=== PATIENT | male | born 1965 | race Caucasian/White ===

== ENCOUNTER 2024-01-07 11:54 | Inpatient (IN) | payer OTHER, SELFPAY ==
[2024-01-07] VITALS (33 sets, daily range): BP systolic 135–185; BP diastolic 71–100; PULSE 55–85; TEMP 36.4–36.7; O2SAT 87–100; BMI 37.3; BMI 38.7
--- NOTE | 2024-01-07 11:59 | ECG_ITS ---
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
--- NOTE | 2024-01-07 11:59 | XR_ITS ---
The [address] [address] Patient Name: MARIA ALEJANRDA WILCOX MRN: [id number] date: 1965 Sex: M Assigned Patient Location: ED.MAIN Current Patient Location: ER Accession/Order Number: [id number] Exam Date: 01/07/2024 12:05 Report Date: 01/07/2024 12:31 At the request of: NELLY ROSARIO Procedure: XR chest 1V EXAMINATION: XR chest 1V HISTORY: vertigo COMPARISON: No relevant comparison available. TECHNIQUE: Portable FINDINGS: LUNGS: No significant pulmonary parenchymal abnormalities. VASCULATURE: No increased pulmonary vasculature. PLEURA: No pneumothorax, effusion, or pleural thickening. CARDIAC: No cardiomegaly or cardiac silhouette abnormality. MEDIASTINUM: No visible mass or adenopathy. BONES: No fracture or visible bone lesion. OTHER: Negative. XR/XR chest 1V IMPRESSION: No acute cardiopulmonary process Electronically authenticated by: JACE SHARMA Date: 01/07/2024 12:31
--- NOTE | 2024-01-07 12:01 | CT_ITS ---
The [address] [address] Patient Name: MARIA ALEJANDRA WILCOX MRN: [id number] date: 1965 Sex: M Assigned Patient Location: ER Current Patient Location: ED.MAIN Accession/Order Number: [id number] Exam Date: 01/07/2024 12:05 Report Date: 01/07/2024 12:29 At the request of: NELLY ROSARIO Procedure: CT stroke head/brain wo con CT stroke head/brain wo con, 01/07/2024 12:05 PM EDT INDICATION: vertigo, rule out vertebrobasilar stroke COMPARISON: No prior CT scan of the head available for comparison at the time of this dictation. TECHNIQUE: Axial CT images of the brain from skull base to vertex, including portions of the face and sinuses, were obtained without contrast. Multiplanar reformatted images were generated and reviewed as needed. FINDINGS: No intracranial mass, hydrocephalus, midline shift or acute hemorrhage. No extra-axial collection. [place]-white matter differentiation is preserved. No findings within the cerebellum, midbrain or mg to suggest acute hemorrhage or infarct. The paranasal sinuses and mastoid air cells are clear. Orbits are within normal limits. No acute skull fracture. CT/CT stroke head/brain wo con IMPRESSION: No acute intracranial abnormality. If there is continued clinical concern for vertebrobasilar infarct or hemorrhage, MRI with greater sensitivity and specificity could be considered for further evaluation. Electronically authenticated by: PAYTON FIGUEROA Date: 01/07/2024 12:29
--- NOTE | 2024-01-07 12:03 | ED_ITS ---
HPI HPI - General Adult General Chief complaint: Dizziness Stated complaint: LOW BLOOD PRESSURE/VOMITING Time Seen by Provider: 01/07/24 11:59 Source: patient Mode of arrival: ambulance Limitations: no limitations History of Present Illness HPI narrative: Patient is a 58-year-old male who is presenting to the ER today with chief complaint intractable vertigo. At approximately 9:40 AM, patient was at work and had acute onset of vertigo. Patient then was having intractable nausea and vomiting. Patient was at work for a few more hours, then came in by EMS. Bay herrera has no headache or neck pain. No chest pain or shortness of breath. Patient has no abdominal pain. Patient was given a dose of Zofran by EMS prior to arrival. Patient is keeping his eyes closed, because anytime he opens up his eyes, he he will have vertigo that leads to more nausea and vomiting. Patient has no head injury, no falls. Patient has no recent vision changes. Patient's is at bedside. Patient's PCP is Dr. Jain. Patient is treated for hypertension, otherwise takes no other medications. All systems are negative except as noted/marked. All systems reviewed and other cui negative. Nurses note and vital signs reviewed and patient is not hypoxic. General: The patient appears well and in no apparent distress. Patient is resting comfortably on cart. Patient is not toxic, lethargic, or listless Skin: Warm, dry, no pallor noted. There is no rash noted. No petechiae, purpura. Head: Normocephalic, atraumatic; patient has no carotid bruits bilateral. Range of motion will ensue vertigo even though he has his eyes closed as well which will trigger nausea and some dry heaving during physical exam. Eye: Normal conjunctiva, no drainage, EOMI. PERRL, patient has some mild horizontal nystagmus, Ears, Nose, Mouth, and Throat: oral mucosa is moist. Nares patent. Mouth without vesicles. Cardiovascular: Regular Rate and Rhythm, no murmur, gallop, rub Respiratory: Patient is in no distress, no accessory muscle use, lungs are clear to auscultation, no wheezing, rales or rhonchi Back: non-tender, no CVA tenderness bilaterally to percussion. No CT LS midline pain GI: no tenderness to palpation, no masses appreciated. No rebound, guarding, or rigidity noted. No distention Musculoskeletal: Patient has full range of motion of all of the extremities, no motor, sensory, or focal neurological deficits Neurological: A&O x4, normal speech Psychiatric: Cooperative Related Data Home Medications ?Medication ?Instructions ?Recorded ?Confirmed carvedilol 12.5 mg tablet 12.5 mg PO Q12H 01/07/24 01/07/24 Allergies Allergy/AdvReac Type Severity Reaction Status Date / Time No Known Drug Allergies Allergy Verified 01/07/24 12:01 Opioid HPI Opioid Management Most Recent Opioid Data: Last Pain Assessment 01/07/24 17:00 Last ORT Total Score 0 01/07/24 15:33 Last ORT Risk Category Low Risk 01/07/24 15:33 PFSH PFSH Medical History (Updated 01/07/24 @ 15:20 by Rose Mcclellan) Hypertension ?I10 - Essential (primary) hypertension (ICD-10) Surgical History (Updated 01/07/24 @ 15:20 by Rose Mcclellan) History of appendectomy ?Z90.49 - Acquired absence of other specified parts of digestive tract (ICD- 10) H/O rotator cuff surgery ?Z98.890 - Other specified postprocedural states (ICD-10) Family History (Updated 01/07/24 @ 15:22 by Rose Mcclellan) Father Family history of cancer Family history of hypertension Aunt Family history of cancer Grandfather No problems noted. 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: Yes Highest level of school completed/degree received: Associate degree: occupational, technical, vocational program Are you now , , , , never or living with a partner: Little interest or pleasure in doing things: not at all Feeling down, depressed, or hopeless: not at all Feel stressed/tense/nervous/anxious/difficulty sleeping: not at all Do you think of yourself as: straight/heterosexual Gender Identity: male Exam Constitutional Vital Signs, click to edit/add: Last Vital Signs Temp 97.7 F 01/07/24 15:45 Pulse 79 01/07/24 17:52 Resp 16 01/07/24 15:45 BP 171/98 H 01/07/24 15:45 Pulse Ox 95 01/07/24 15:45 O2 Del Method Room Air 01/07/24 15:45 Course Vital Signs Vital signs: Vital Signs Temperature 97.5 F L 01/07/24 11:57 Pulse Rate 62 01/07/24 11:57 Respiratory Rate 18 01/07/24 11:57 Blood Pressure 185/96 H 01/07/24 11:57 Pulse Oximetry 99 01/07/24 11:57 Oxygen Delivery Method Room Air 01/07/24 11:57 Temperature 97.7 F 01/07/24 15:45 Pulse Rate 79 01/07/24 17:52 Respiratory Rate 16 01/07/24 15:45 Blood Pressure 171/98 H 01/07/24 15:45 Pulse Oximetry 95 01/07/24 15:45 Oxygen Delivery Method Room Air 01/07/24 15:45 Medical Decision Making MDM Narrative Medical decision making narrative: Stroke alert was called when patient arrived secondary to onset of vertigo, intractable vertigo, nausea and vomiting at 9:[address] AM[address] Patient had a CT of the head that was ordered, along with CTA of the head and neck. Patient also had EKG, chest x-ray, and lab work done as well. Patient was given a second dose of Zofran and Valium 2 mg when he arrived. Patient continued to have vertigo and nausea and vomiting, reassessed and 1 hour later was given a dose of Compazine and a second dose of Valium. Patient vertigo nausea vomiting improved slightly after this. Patient will be admitted for intractable vertigo, rule out vertebral basilar insufficiency or other acute etiologies. Patient felt like he was having some swelling to his throat after C ompazine was given, he was given Benadryl in case he is having a side effect of Compazine. Verifying with PIO RN, Compazine was given slow and diluted with IV fluids. Patient will be admitted by Dr. JAIN for reevaluation and ministration of additional antiemetics or other medications as needed along with additional testing tomorrow if needed Critical care time 31 minutes exclusive from separate billable procedures that were performed. The following was considered in the determination of critical care but not limited to the level of medical decision making, intensive cardiac and/or respiratory monitoring, frequent vital sign monitoring, evaluation of laboratory studies, evaluation of radiographic studies, oxygen monitoring, and constant monitoring and speaking to family at bedside Lab Data Lab results reviewed: Yes I reviewed the patient's lab results Labs: Lab Results 01/07/24 Range/Units 12:32 WBC 9.8 (4.0-11.0) 10^3/uL RBC 4.76 (4.70-6.10) 10^6/uL Hgb 14.5 (14.0-18.0) g/dL Hct 42.0 (42.0-54.0) % MCV 88.2 (80.0-94.0) fL MCH 30.5 (25.9-34.0) pg MCHC 34.5 (29.9-35.2) g/dL RDW 12.3 (11.0-15.0) % Plt Count 216 (150-450) 10^3/uL MPV 9.4 L (9.5-13.5) fL Neut % (Auto) 82.2 H (43.0-75.0) % Lymph % (Auto) 11.4 L (20.5-60.0) % Pierce % (Auto) 4.1 (1.7-12.0) % Eos % (Auto) 1.3 (0.9-7.0) % Baso % (Auto) 0.6 (0.2-2.0) % Neut # (Auto) 8.1 H (1.4-6.5) 10^3/uL Lymph # (Auto) 1.1 L (1.2-3.8) 10^3/uL Pierce # (Auto) 0.4 (0.3-0.8) 10^3/uL Eos # (Auto) 0.1 (0.0-0.7) 10^3/uL Baso # (Auto) 0.1 (0.0-0.1) 10^3/uL Abs Immat Gran (auto) 0.04 H (0.00-0.03) 10^3/uL Imm/Tot Granulo (auto) 0.4 (0.0-0.5) % PT 10.9 (9.0-11.6) sec INR 1.03 APTT 25.6 (22.3-36.2) sec Sodium 137 (136-145) mmol/L Potassium 4.5 (3.5-5.1) mmol/L Chloride 103 (98-107) mmol/L Carbon Dioxide 22.8 (21.0-32.0) mmol/L Anion Gap 15.7 BUN 23.0 H (7.0-18.0) mg/dL Creatinine 0.99 (0.70-1.30) mg/dL Est GFR ( Amer) >60 (>=60) Est GFR (Non-Af Amer) >60 (>=60) BUN/Creatinine Ratio 23.2 Glucose 143 H (74-106) mg/dL Calcium 9.0 (8.5-10.1) mg/dL Magnesium 1.9 (1.8-2.4) mg/dL Total Bilirubin 0.8 (0.2-1.0) mg/dL AST 17 (15-37) U/L ALT 20 (16-63) U/L Alkaline Phosphatase 64 (46-116) U/L Troponin I High Sens <4.0 L (4.0-76.1) pg/mL NT-Pro-B Natriuret Pep 90.0 (<=900.0) pg/mL Total Protein 7.0 (6.4-8.2) g/dL Albumin 3.5 (3.4-5.0) g/dL Globulin 3.5 g/dL Albumin/Globulin Ratio 1.0 ECG Data Attestation: I personally reviewed and interpreted this ECG as follows: (EKG interpretation. Normal sinus rhythm at 60 beats a minute. Normal axis deviation. Artifact noted. QTc of 440. ID interval 216, first degree AV block) Discharge Plan Discharge Chief Complaint: Dizziness Clinical Impression: Vertigo, Nausea and vomiting Patient Disposition: Admitted as Observation Time of Disposition Decision: 14:18 Condition: Serious Discharge Date/Time: 01/07/24 15:21
--- NOTE | 2024-01-07 12:05 | CT_ITS ---
The [address] [address] Patient Name: MARIA ALEJANDRA WILCOX MRN: [id number] date: 1965 Sex: M Assigned Patient Location: ED.MAIN Current Patient Location: ED.MAIN Accession/Order Number: [id number] Exam Date: 01/07/2024 12:05 Report Date: 01/07/2024 12:55 At the request of: NELLY ROSARIO Procedure: CT angio neck EXAM: CT angio neck, CT angio head HISTORY: vertigo COMPARISON: Noncontrast CT head performed earlier the same day and reported separately. TECHNIQUE: Postcontrast CTA imaging of the head and neck was performed with coronal and sagittal reformats. Maximum intensity projection reformats were performed on a separate workstation. NASCET criteria was utilized. This CT exam was performed using one or more of the following dose reduction techniques: Automated exposure control, adjustment of the MA and/or kV according to patient size, or use of iterative reconstruction technique. Oral images or contained under the CTA neck patient jacket. FINDINGS: Aortic arch: Imaged portion shows no evidence of aneurysm. No significant stenosis of the major origins of the major arch vessels. Right carotid system: No evidence of significant (50% or greater) stenosis or occlusion. Left carotid system: No evidence of significant (50% or greater) stenosis or occlusion. Vertebral arteries: Codominant. No evidence of significant (50% or greater) stenosis or occlusion. Anterior circulation: No evidence of aneurysm, significant stenosis, or occlusion. Vertebrobasilar system: No evidence of aneurysm, significant stenosis, or occlusion. Hypoplastic right P1 posterior cerebral artery segment. Venous sinuses: Grossly patent. Additional findings: No abnormal intracranial enhancement. Visualized portion of the lungs are clear. CT/CT angio neck IMPRESSION: No significant stenosis, large vessel occlusion or aneurysm involving the neck or intracranial arterial vasculature. Electronically authenticated by: GAUTAM ARNOLD Date: 01/07/2024 12:55
--- NOTE | 2024-01-07 12:05 | CT_ITS ---
The [address] [address] Patient Name: MARIA ALEJANDRA WILCOX MRN: [id number] date: 1965 Sex: M Assigned Patient Location: ED.MAIN Current Patient Location: ED.MAIN Accession/Order Number: [id number] Exam Date: 01/07/2024 12:05 Report Date: 01/07/2024 12:55 At the request of: NELLY ROSARIO Procedure: CT angio head EXAM: CT angio neck, CT angio head HISTORY: vertigo COMPARISON: Noncontrast CT head performed earlier the same day and reported separately. TECHNIQUE: Postcontrast CTA imaging of the head and neck was performed with coronal and sagittal reformats. Maximum intensity projection reformats were performed on a separate workstation. NASCET criteria was utilized. This CT exam was performed using one or more of the following dose reduction techniques: Automated exposure control, adjustment of the MA and/or kV according to patient size, or use of iterative reconstruction technique. Oral images or contained under the CTA neck patient jacket. FINDINGS: Aortic arch: Imaged portion shows no evidence of aneurysm. No significant stenosis of the major origins of the major arch vessels. Right carotid system: No evidence of significant (50% or greater) stenosis or occlusion. Left carotid system: No evidence of significant (50% or greater) stenosis or occlusion. Vertebral arteries: Codominant. No evidence of significant (50% or greater) stenosis or occlusion. Anterior circulation: No evidence of aneurysm, significant stenosis, or occlusion. Vertebrobasilar system: No evidence of aneurysm, significant stenosis, or occlusion. Hypoplastic right P1 posterior cerebral artery segment. Venous sinuses: Grossly patent. Additional findings: No abnormal intracranial enhancement. Visualized portion of the lungs are clear. CT/CT angio head IMPRESSION: No significant stenosis, large vessel occlusion or aneurysm involving the neck or intracranial arterial vasculature. Electronically authenticated by: GAUTAM ARNOLD Date: 01/07/2024 12:55
[2024-01-07] MEDS: ONDANSETRON PF 4 MG/2 ML VIAL IV (12:29)
[2024-01-07] MEDS: DIAZEPAM 10 MG/2 ML SYRINGE 2 MG IV ×2 (12:29→13:22)
[2024-01-07 12:39] LABS: Basophils Absolute Auto 0.1 10^3/uL (0.0-0.1); Basophils Percent Auto 0.6 % (0.2-2.0); Eosinophils Absolute Auto 0.1 10^3/uL (0.0-0.7); Eosinophils Percent Auto 1.3 % (0.9-7.0); Hemoglobin 14.5 g/dL (14.0-18.0); Immature Granulocytes Abs Auto 0.04 10^3/uL (0.00-0.03); Immature Granulocytes Pct Auto 0.4 % (0.0-0.5); Lymphocytes Absolute Auto 1.1 10^3/uL (1.2-3.8); Lymphocytes Percent Auto 11.4 % (20.5-60.0); Mean Corpuscular HGB Conc 34.5 g/dL (29.9-35.2); Mean Corpuscular Hemoglobin 30.5 pg (25.9-34.0); Mean Corpuscular Volume 88.2 fL (80.0-94.0); Mean Platelet Volume 9.4 fL (9.5-13.5); Monocytes Absolute Auto 0.4 10^3/uL (0.3-0.8); Monocytes Percent Auto 4.1 % (1.7-12.0); Neutrophils Absolute Auto 8.1 10^3/uL (1.4-6.5); Neutrophils Percent Auto 82.2 % (43.0-75.0); Platelet Count 216 10^3/uL (150-450); Red Blood Count 4.76 10^6/uL (4.70-6.10); Red Cell Distribution Width 12.3 % (11.0-15.0); White Blood Count 9.8 10^3/uL (4.0-11.0)
[2024-01-07 13:01] LABS: INR 1.03; Partial Thromboplastin Time 25.6 sec (22.3-36.2); Prothrombin Time 10.9 sec (9.0-11.6)
[2024-01-07 13:02] LABS: Alanine Aminotransferase 20 U/L (16-63); Albumin Level 3.5 g/dL (3.4-5.0); Alkaline Phosphatase 64 U/L (46-116); Anion Gap 15.7; Aspartate Amino Transferase 17 U/L (15-37); BUN Creatinine Ratio 23.2; Bilirubin Total 0.8 mg/dL (0.2-1.0); Carbon Dioxide 22.8 mmol/L (21.0-32.0); Chloride 103 mmol/L (98-107); Estimated GFR (African America >60 (>=60); Estimated GFR (Non-African Ame >60 (>=60); Globulin 3.5 g/dL; Glucose 143 mg/dL (74-106); Potassium 4.5 mmol/L (3.5-5.1); Sodium 137 mmol/L (136-145); Troponin I High Sensitivity <4.0 pg/mL (4.0-76.1)
[2024-01-07] MEDS: PROCHLORPERAZINE 10 MG/2 ML VIAL IV (13:22)
[2024-01-07] MEDS: DIPHENHYDRAMINE HCL 50 MG/ML (1ML) VIAL IV (15:26)
[2024-01-07 16:01] LABS: Magnesium 1.9 mg/dL (1.8-2.4)
--- NOTE | 2024-01-07 16:57 | P.HP_ITS ---
HPI H&P: HPI History of Present Illness Chief complaint: LOW BLOOD PRESSURE/VOMITING intractable vertigo Narrative: Patient woke up this morning felt like his normal self, as the morning progressed he started having increasing dizziness. Dizziness progressed to the point of stat emesis. Presented to the emergency room. Given multiple medications to try to improve his dizziness without success. CT scan of head and CTA head and neck were all within normal limits. Had no focal neurological deficits. When I saw patient up in the medical surgical floor he was resting comfortably. Awakens easily and per staff he has stated his dizziness is overall improving at the present time. Opioid HPI Opioid Management Most Recent Opioid Data: Last Pain Assessment 01/07/24 16:15 Last ORT Total Score 0 01/07/24 15:33 Last ORT Risk Category Low Risk 01/07/24 15:33 Review of Systems ROS Status of ROS 10 or more systems reviewed and unremark able except as noted in history and below PFSH PFSH Medical History (Updated 01/07/24 @ 15:20 by Rose Mcclellan) Hypertension ?I10 - Essential (primary) hypertension (ICD-10) Surgical History (Updated 01/07/24 @ 15:20 by Rose Mcclellan) History of appendectomy ?Z90.49 - Acquired absence of other specified parts of digestive tract (ICD- 10) H/O rotator cuff surgery ?Z98.890 - Other specified postprocedural states (ICD-10) Family History (Updated 01/07/24 @ 15:22 by Rose Mcclellan) Father Family history of cancer Family history of hypertension Aunt Family history of cancer Grandfather No problems noted. 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: Yes Highest level of school completed/degree received: Associate degree: occupational, technical, vocational program Are you now , , , , never or living with a partner: Little interest or pleasure in doing things: not at all Feeling down, depressed, or hopeless: not at all Feel stressed/tense/nervous/anxious/difficulty sleeping: not at all Do you think of yourself as: straight/heterosexual Gender Identity: male Meds Home Medications and Allergies Home Medications ?Medication ?Instructions ?Recorded ?Confirmed ?Type carvedilol 12.5 mg tablet 12.5 mg PO Q12H 01/07/24 01/07/24 History Allergies Allergy/AdvReac Type Severity Reaction Status Date / Time No Known Drug Allergies Allergy Verified 01/07/24 12:01 Exam Constitutional Vital Signs, click to edit/add: Last Vital Signs Temp 97.7 F 01/07/24 15:45 Pulse 74 01/07/24 15:54 Resp 16 01/07/24 15:45 BP 171/98 H 01/07/24 15:45 Pulse Ox 95 01/07/24 15:45 O2 Del Method Room Air 01/07/24 15:45 Common normals: no apparent distress Exam limitations: no altered mental status Chest Common normals: inspection of chest normal Respiratory Common normals: normal respiratory effort Cardio Common normals: regular rate Neuro Common normals: oriented x3, CN's II-XII intact bilaterally and moves all extremities Results Labs Labs: Short CBC 01/07/24 Range/Units 12:32 WBC 9.8 (4.0-11.0) 10^3/uL Hgb 14.5 (14.0-18.0) g/dL Hct 42.0 (42.0-54.0) % Plt Count 216 (150-450) 10^3/uL BMP 01/07/24 12:32 Sodium 137 Potassium 4.5 Chloride 103 Carbon Dioxide 22.8 BUN 23.0 H Creatinine 0.99 Glucose 143 H Calcium 9.0 Liver Function 01/07/24 Range/Units 12:32 Total Bilirubin 0.8 (0.2-1.0) mg/dL AST 17 (15-37) U/L ALT 20 (16-63) U/L Alkaline Phosphatase 64 (46-116) U/L Albumin 3.5 (3.4-5.0) g/dL Assessment and Plan Assessment and Plan (1) Nausea and vomiting: (2) Vertigo: Plan Uncontrolled hypertension, intractable vertigo. Mild dehydration with elevated BUN but creatinine is normal. IV fluids, IV Solu-Medrol, [id number] me clizine, started on aspirin, but with CTA head and neck low risk for vertebrobasilar stroke. If not improved in a.m. will consult to teleneurology. Valium 2 mg as needed. Start oral antibiotics as well. Uncontrolled hypertension-continue with home medications. Use as needed hydralazine. I suspect the uncontrolled hypertension more related to the vertigo as opposed to opposite Admission status: Patient with intractable vertigo in ER, slowly improving once up on floor. Continue as above treatment. More than 50% likelihood of discharge in a.m. Observation status.
[2024-01-07] MEDS: LACTATED RINGER'S SOLUTION 1,000 ML 100 ML IV (18:26)
--- NOTE | 2024-01-07 20:22 | PC.NURSE ---
Left eye bounces slightly with movement. Able to follow light without difficulty with both eyes.
[2024-01-07] MEDS: MECLIZINE HCL 12.5 MG TABLET 25 MG PO (21:01)
[2024-01-07] MEDS: METHYLPREDNISOLONE SOD SUCC PF 125 MG/2 ML VIAL IVP (21:02)
[2024-01-07] MEDS: CARVEDILOL 12.5 MG TABLET PO (21:02)
[2024-01-07] MEDS: CIPROFLOXACIN HCL 500 MG TABLET PO (21:02)
[2024-01-08] VITALS (89 sets, daily range): BP systolic 134–204; BP diastolic 71–98; PULSE 61–110; TEMP 36.6–36.8; O2SAT 92–95
--- NOTE | 2024-01-08 | XR_ITS ---
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 TECHNIQUE: 2 view of the orbits. FINDINGS: No metallic foreign body in the orbits XR/XR foreign body eye IMPRESSION: No orbital metallic foreign body.. Electronically authenticated by: RENE CHEUNG Date: 01/08/2024 16:20
[2024-01-08] MEDS: LACTATED RINGER'S SOLUTION 1,000 ML 100 ML IV ×2 (03:32→14:29)
[2024-01-08] MEDS: MECLIZINE HCL 12.5 MG TABLET 25 MG PO ×4 (03:32→23:01)
[2024-01-08] MEDS: METHYLPREDNISOLONE SOD SUCC PF 125 MG/2 ML VIAL IVP ×4 (03:32→23:01)
--- NOTE | 2024-01-08 03:39 | PC.NURSE ---
Patient states vertigo is getting better.
[2024-01-08 04:56] LABS: Hematocrit 44.2 % (42.0-54.0); Hemoglobin 14.7 g/dL (14.0-18.0); Immature Granulocytes Abs Auto 0.03 10^3/uL (0.00-0.03); Immature Granulocytes Pct Auto 0.4 % (0.0-0.5); Lymphocytes Absolute Auto 0.5 10^3/uL (1.2-3.8); Lymphocytes Percent Auto 6.2 % (20.5-60.0); Mean Corpuscular HGB Conc 33.3 g/dL (29.9-35.2); Mean Corpuscular Hemoglobin 30.1 pg (25.9-34.0); Mean Corpuscular Volume 90.6 fL (80.0-94.0); Mean Platelet Volume 9.4 fL (9.5-13.5); Monocytes Percent Auto 0.3 % (1.7-12.0); Neutrophils Absolute Auto 7.2 10^3/uL (1.4-6.5); Neutrophils Percent Auto 93.1 % (43.0-75.0); Platelet Count 224 10^3/uL (150-450); Red Blood Count 4.88 10^6/uL (4.70-6.10); Red Cell Distribution Width 12.8 % (11.0-15.0); White Blood Count 7.8 10^3/uL (4.0-11.0)
[2024-01-08 05:11] LABS: Anion Gap 15.9; BUN Creatinine Ratio 17.6; Calcium 9.1 mg/dL (8.5-10.1); Carbon Dioxide 21.3 mmol/L (21.0-32.0); Chloride 106 mmol/L (98-107); Estimated GFR (African America >60 (>=60); Estimated GFR (Non-African Ame >60 (>=60); Glucose 140 mg/dL (74-106); Potassium 4.2 mmol/L (3.5-5.1); Sodium 139 mmol/L (136-145)
[2024-01-08] MEDS: CIPROFLOXACIN HCL 500 MG TABLET PO ×2 (08:56→23:00)
[2024-01-08] MEDS: ASPIRIN 81 MG TABLET.DR PO (08:56)
[2024-01-08] MEDS: CARVEDILOL 12.5 MG TABLET PO (08:56)
--- NOTE | 2024-01-08 10:03 | P.DS_ITS ---
DS: Providers Provider Date of admission: 01/07/24 15:05 Primary care physician: Francisco Barlow MD Consults: 01/07/24 15:45 Consult to Pharmacy Routine Consulting Provider: Reason for consultation: Please [place] me when Med Rec is Updated Has provider been notified: No Occupational Therapy Eval and Treat Routine Reason for consultation: Only if needed for Rehab Has provider been notified: No Physical Therapy Eval and Treat Routine Reason for consultation: Eval and Treat Has provider been notified: No 01/08/24 09:27 Consult to TeleNeurology Routine Reason for consultation: for persistent vertigo Has provider been notified: No Physical Therapy Eval and Treat Routine Reason for consultation: for vertigo Has provider been notified: No DS: Diagnosis Discharge Diagnosis (1) Nausea and vomiting: (2) Vertigo: Plan Uncontrolled hypertension, intractable vertigo. Mild dehydration with elevated BUN but creatinine is normal. IV fluids, IV Solu-Medrol, [id number] meclizine, started on aspirin, but with CTA head and neck low risk for vertebrobasilar stroke. If not improved in a.m. will consult to teleneurology. Valium 2 mg as needed. Start oral antibiotics as well. Uncontrolled hypertension-continue with home medications. Use as needed hydralazine. I suspect the uncontrolled hypertension more related to the vertigo as opposed to opposite Admission status: Patient with intractable vertigo in ER, slowly improving once up on floor. Continue as above treatment. More than 50% likelihood of discharge in a.m. Observation status. DS: Summary Time Spent with Patient Time attestation: Total time spent providing and/or coordinating discharge services: Exam Constitutional Vital Signs, click to edit/add: Last Vital Signs Temp 97.8 F 01/08/24 08:00 Pulse 822 H 01/08/24 08:00 Resp 18 01/08/24 08:00 BP 175/87 H 01/08/24 08:00 Pulse Ox 93 L 01/08/24 08:00 O2 Del Method Room Air 01/08/24 08:00 DS: Data Data Completed and Pending Labs on day of discharge: Labs from last 24 hours 01/08/24 01/07/24 04:40 12:32 WBC 7.8 9.8 RBC 4.88 4.76 Hgb 14.7 14.5 Hct 44.2 42.0 MCV 90.6 88.2 MCH 30.1 30.5 MCHC 33.3 34.5 RDW 12.8 12.3 Plt Count 224 216 MPV 9.4 L 9.4 L Neut % (Auto) 93.1 H 82.2 H Lymph % (Auto) 6.[address] [place] % (Auto) 0.3 L 4.1 Eos % (Auto) 0.0 L 1.3 Baso % (Auto) 0.0 L 0.6 Neut # (Auto) 7.2 H 8.1 H Lymph # (Auto) 0.[address] [place] # (Auto) 0.0 L 0.4 Eos # (Auto) 0.0 0.1 Baso # (Auto) 0.0 0.1 Abs Immat Gran (auto) 0.03 0.04 H Imm/Tot Granulo (auto) 0.4 0.4 PT 10.9 INR 1.03 APTT 25.6 Sodium 139 137 Potassium 4.2 4.5 Chloride 106 103 Carbon Dioxide 21.3 22.8 Anion Gap 15.9 15.7 BUN 15.0 23.0 H Creatinine 0.85 0.99 Est GFR ( Amer) >60 >60 Est GFR (Non-Af Amer) >60 >60 BUN/Creatinine Ratio 17.6 23.2 Glucose 140 H 143 H Calcium 9.1 9.0 Magnesium 1.9 Total Bilirubin 0.8 AST 17 ALT 20 Alkaline Phosphatase 64 Troponin I High Sens <4.0 L NT-Pro-B Natriuret Pep 90.0 Total Protein 7.0 Albumin 3.5 Globulin 3.5 Albumin/Globulin Ratio 1.0 Discharge Plan Discharge Condition: Serious Discharge Medications: No Action carvedilol 12.5 mg tablet 12.5 mg PO Q12H Print Language: Haitian
--- NOTE | 2024-01-08 11:56 | P.PN_ITS ---
Progress Note: Subjective Subjective Interval history: Patient with persistent vertigo this morning. Show consulted to teleneurology. See evaluation by teleneurology. Exam Constitutional Vital Signs, click to edit/add: Last Vital Signs Temp 97.8 F 01/08/24 08:00 Pulse 71 01/08/24 10:05 Resp 18 01/08/24 08:00 BP 150/88 H 01/08/24 10:00 Pulse Ox 93 L 01/08/24 08:00 O2 Del Method Room Air 01/08/24 08:00 Common normals: no apparent distress Exam limitations: no altered mental status Chest Common normals: inspection of chest normal Respiratory Common normals: normal respiratory effort Cardio Common normals: regular rate Neuro Common normals: oriented x3, CN's II-XII intact bilaterally and moves all extremities Other: See teleneurology evaluation Progress Note: Objective Labs Labs: Short CBC 01/07/24 01/08/24 Range/Units 12:32 04:40 WBC 9.8 7.8 (4.0-11.0) 10^3/uL Hgb 14.5 14.7 (14.0-18.0) g/dL Hct 42.0 44.2 (42.0-54.0) % Plt Count 216 224 (150-450) 10^3/uL BMP 01/07/24 01/08/24 12:32 04:40 Sodium 137 139 Potassium 4.5 4.2 Chloride 103 106 Carbon Dioxide 22.8 21.3 BUN 23.0 H 15.0 Creatinine 0.99 0.85 Glucose 143 H 140 H Calcium 9.0 9.1 Liver Function 01/07/24 Range/Units 12:32 Total Bilirubin 0.8 (0.2-1.0) mg/dL AST 17 (15-37) U/L ALT 20 (16-63) U/L Alkaline Phosphatase 64 (46-116) U/L Albumin 3.5 (3.4-5.0) g/dL Progress Note: A&P Assessment and Plan (1) Nausea and vomiting: (2) Vertigo: Plan Uncontrolled hypertension, intractable vertigo. Mild dehydration with elevated BUN but creatinine is normal. Continue with current treatment plan. His vertigo he states is better than yesterday. But still persisting. Will have physical therapy work with patient, added teleneurology visit. Teleneurology would suspect is likely to recommend an additional day to make sure he is stable before discharge Uncontrolled hypertension-continue with home medications. Increase carvedilol this morning Hyperglycemia-continue to monitor Admission status: Initially placed in observation status. Intractable vertigo not resolved. Teleneurology recommending additional hospital stay for continued IV therapy. Medically necessary treatment spanning 2 midnights, will change patient to inpatient status
--- NOTE | 2024-01-08 12:47 | MR_ITS ---
The [address] [address] Patient Name: MARIA ALEJANDRA WILCOX MRN: [id number] date: 1965 Sex: M Assigned Patient Location: [place] Current Patient Location: [place] Accession/Order Number: [id number] Exam Date: 01/08/2024 14:15 Report Date: 01/08/2024 17:34 At the request of: NADEEN JAIN Procedure: MR head/brain wo con MR head/brain wo con HISTORY: Vertigo COMPARISON: None. TECHNIQUE: Multi-planar, multi-sequence brain MRI was performed without IV contrast. FINDINGS: Brain volume: Normal. Sagittal midline structures: Normal. Ventricles: Normal. Acute ischemic changes: None. Hemorrhage: None. Masses/edema: None. [place]-white: Negative. White matter: A few nonspecific subcortical and periventricular T2/FLAIR white matter hyperintensities. Vessels: Normal. Extra-axial: None. Calvarium/scalp: Negative. Skull base: Negative. Visualized sinuses/orbits: Negative. Visualized upper neck: Negative. MR/MR head/brain wo con IMPRESSION: 1. Mild chronic microangiopathy; otherwise unremarkable. Electronically authenticated by: CRIS SALGUERO Date: 01/08/2024 17:34
[2024-01-08] MEDS: HYDRALAZINE HCL 20 MG/ML VIAL 10 MG IVP (13:23)
[2024-01-08] MEDS: DIAZEPAM 2 MG TABLET PO (13:55)
[2024-01-08] MEDS: METOPROLOL TARTRATE 5 MG/5 ML VIAL IVP (14:43)
[2024-01-08] MEDS: ENALAPRILAT DIHYDRATE 1.25 MG/ML VIAL IV (15:47)
[2024-01-08] MEDS: DIAZEPAM 10 MG/2 ML SYRINGE 5 MG IV (17:02)
[2024-01-08] MEDS: HYDRALAZINE HCL 20 MG/ML VIAL IVP (17:03)
[2024-01-08] MEDS: ACETAMINOPHEN 500 MG TABLET 1000 MG PO (19:48)
[2024-01-08] MEDS: NITROPRUSSIDE SODIUM 50 MG in DEXTROSE 5 % IN WATER 250 ML 11.1039999999999992 MG IV (20:13)
[2024-01-08] MEDS: PANTOPRAZOLE SODIUM 40 MG VIAL IV (20:15)
[2024-01-09] VITALS (96 sets, daily range): BP systolic 106–190; BP diastolic 51–108; PULSE 58–104; TEMP 36.6–36.7; O2SAT 90–96
[2024-01-09] MEDS: LACTATED RINGER'S SOLUTION 1,000 ML 100 ML IV (01:02)
[2024-01-09] MEDS: MECLIZINE HCL 12.5 MG TABLET 25 MG PO ×2 (04:06→08:54)
[2024-01-09] MEDS: METHYLPREDNISOLONE SOD SUCC PF 125 MG/2 ML VIAL IVP (04:06)
[2024-01-09 05:32] LABS: Anion Gap 13.7; BUN Creatinine Ratio 18.1; Calcium 9.1 mg/dL (8.5-10.1); Carbon Dioxide 23.6 mmol/L (21.0-32.0); Chloride 108 mmol/L (98-107); Estimated GFR (African America >60 (>=60); Estimated GFR (Non-African Ame >60 (>=60); Glucose 128 mg/dL (74-106); Potassium 4.3 mmol/L (3.5-5.1); Sodium 141 mmol/L (136-145)
[2024-01-09 05:34] LABS: Basophils Percent Auto 0.2 % (0.2-2.0); Hematocrit 42.4 % (42.0-54.0); Hemoglobin 13.9 g/dL (14.0-18.0); Immature Granulocytes Abs Auto 0.21 10^3/uL (0.00-0.03); Immature Granulocytes Pct Auto 1.1 % (0.0-0.5); Lymphocytes Absolute Auto 0.6 10^3/uL (1.2-3.8); Lymphocytes Percent Auto 3.1 % (20.5-60.0); Mean Corpuscular HGB Conc 32.8 g/dL (29.9-35.2); Mean Corpuscular Hemoglobin 30.1 pg (25.9-34.0); Mean Corpuscular Volume 91.8 fL (80.0-94.0); Monocytes Absolute Auto 0.7 10^3/uL (0.3-0.8); Monocytes Percent Auto 3.4 % (1.7-12.0); Neutrophils Percent Auto 92.2 % (43.0-75.0); Platelet Count 220 10^3/uL (150-450); Red Blood Count 4.62 10^6/uL (4.70-6.10); Red Cell Distribution Width 13.2 % (11.0-15.0); White Blood Count 19.5 10^3/uL (4.0-11.0)
[2024-01-09] MEDS: METHYLPREDNISOLONE SOD SUCC PF 125 MG/2 ML VIAL 60 MG IVP (08:51)
[2024-01-09] MEDS: ASPIRIN 81 MG TABLET.DR PO (08:54)
[2024-01-09] MEDS: CARVEDILOL 12.5 MG TABLET 25 MG PO (08:54)
[2024-01-09] MEDS: CIPROFLOXACIN HCL 500 MG TABLET PO (09:05)
--- NOTE | 2024-01-09 09:51 | P.DS_ITS ---
DS: Providers Provider Date of admission: 01/07/24 15:05 Primary care physician: Francisco Barlow MD Consults: 01/07/24 15:45 Consult to Pharmacy Routine Consulting Provider: Reason for consultation: Please [place] me when Med Rec is Updated Has provider been notified: No Occupational Therapy Eval and Treat Routine Reason for consultation: Only if needed for Rehab Has provider been notified: No Physical Therapy Eval and Treat Routine Reason for consultation: Eval and Treat Has provider been notified: No 01/08/24 09:27 Consult to TeleNeurology Routine Reason for consultation: for persistent vertigo Has provider been notified: No Physical Therapy Eval and Treat Routine Reason for consultation: for vertigo Has provider been notified: No DS: Diagnosis Discharge Diagnosis (1) Nausea and vomiting: (2) Vertigo: Plan Admission findings: Uncontrolled hypertension, intractable vertigo. Mild dehydration with elevated BUN but creatinine is normal. Improving at the time of discharge Uncontrolled hypertension with hypertensive urgency-better when taking medications Hyperglycemia-continue to monitor Sleep apnea-stable with machine Lssiogafcsms-bprfiqv-pchatke Iron deficiency anemia-stable Admission status: Initially placed in observation status. Intractable vertigo not resolved. Patient developed hypertensive urgency and required transfer to the intensive care unit and change patient to inpatient status with medically necessary treatment spanning 2 midnights ? DS: Summary Hospital Course Hospital Course: Patient was admitted with intractable vertigo. Given multiple medications in the emergency room without success. Also had significant elevation of blood pressure on admission to the emergency room. He was treated with steroids, Depakote, meclizine, antibiotics, Valium. Had improvement in his vertigo but the blood pressure remains significantly elevated started having increasing high blood pressure with headache and some chest discomfort. Patient was transferred to the intensive care unit and placed on nitroprusside drip. His blood pressure improved. His rest of his symptoms improved as well to except the vertigo. His vertigo is improved from admission but still slightly persistent. With blood pressure overall improving, blood pressure somewhat elevated this morning but I think is more related to his stress and anxiety. Will give a dose of hydralazine prior to discharge. If stable after that he can be discharged home in improving condition. Medications see list. Follow-up with me in the office tomorrow. Time Spent with Patient Time attestation: Total time spent providing and/or coordinating discharge services: Time spent: greater than 30 minutes Exam Constitutional Vital Signs, click to edit/add: Last Vital Signs Temp 98.0 F 01/09/24 08:00 Pulse 76 01/09/24 08:00 Resp 16 01/09/24 08:00 BP 126/51 01/09/24 07:30 Pulse Ox 95 01/09/24 08:00 O2 Del Method Room Air 01/09/24 08:00 Common normals: no apparent distress Exam limitations: no altered mental status Chest Common normals: inspection of chest normal Respiratory Common normals: normal respiratory effort Cardio Common normals: regular rate, regular rhythm and no murmurs Neuro Common normals: oriented x3, CN's II-XII intact bilaterally and moves all extremities Other: See teleneurology evaluation DS: Data Data Completed and Pending Labs on day of discharge: Labs from last 24 hours 01/09/24 04:02 WBC 19.5 H RBC 4.62 L Hgb 13.9 L Hct 42.4 MCV 91.8 MCH 30.1 MCHC 32.8 RDW 13.2 Plt Count 220 MPV 10.0 Neut % (Auto) 92.2 H Lymph % (Auto) 3.1 L [place] % (Auto) 3.4 Eos % (Auto) 0.0 L Baso % (Auto) 0.2 Neut # (Auto) 18.0 H Lymph # (Auto) 0.6 L [place] # (Auto) 0.7 Eos # (Auto) 0.0 Baso # (Auto) 0.0 Abs Immat Gran (auto) 0.21 H Imm/Tot Granulo (auto) 1.1 H Sodium 141 Potassium 4.3 Chloride 108 H Carbon Dioxide 23.6 Anion Gap 13.7 BUN 17.0 Creatinine 0.94 Est GFR ( Amer) >60 Est GFR (Non-Af Amer) >60 BUN/Creatinine Ratio 18.1 Glucose 128 H Calcium 9.1 Discharge Plan Discharge Disposition: Home, Self-Care Condition: Serious Discharge Medications: New carvedilol 25 mg Tablet 25 mg PO BID Qty: 60 11RF ciprofloxacin HCl 500 mg Tablet 500 mg PO BID Qty: 20 0RF aspirin 81 mg Tablet,Delayed Release (Dr/Ec) 81 mg PO QD Qty: 30 11RF meclizine 12.5 mg Tablet 25 mg PO Q6H Qty: 20 0RF prednisone 10 mg tablet 50 mg PO DAILY Qty: 47 0RF Rx Instructions: 5/day for 3 days. 4/day for 3 days, 3/day for 3 days, 2/day for 3 days, 1/day for 3 days, 1/2 /day for 4 days Discontinued carvedilol 12.5 mg tablet 12.5 mg PO Q12H Print Language: Georgian Forms: Portal Instructions
[2024-01-09] MEDS: HYDRALAZINE HCL 20 MG/ML VIAL IVP (10:54)
[2024-01-09] MEDS: DIAZEPAM 2 MG TABLET PO (11:43)
--- NOTE | 2024-01-10 10:48 | CM.DCFOLLOWU ---
Person spoke with: patient How are you feeling? well How is your pain? no pain Did you understand your discharge instructions? yes Do you have any questions about your discharge instructions? no Were you given any prescriptions at discharge? yes Were you able to get your prescriptions filled? picking up today Do you understand how to take your medications as ordered? yes Do you have any questions about your follow up appointment and do you plan to keep your follow up appointment? f/u today with Dr. Barlow. Patient askd about physical therapy, advised to speak with Dr. Barlow about this Is there anything else that you would like to discuss? no Questions/Comments/Concerns/Other: N/A
== END 2024-01-09 12:57 | disposition home or self-care (01) | DRG 305 ==
LOC: ER 14:18 → MS 15:09 → ICU 01-11 08:04 → MS 01-11 08:04
PROVIDERS: Admitting Provider Family Medicine; Emergency Provider Emergency Medicine; PCP Family Medicine; Visit Provider Family Medicine
DX: I16.0 Hypertensive urgency (principal); R42 Dizziness and giddiness; R11.2 Nausea with vomiting, unspecified; E86.0 Dehydration; R07.9 Chest pain, unspecified; R73.9 Hyperglycemia, unspecified; G47.30 Sleep apnea, unspecified; D72.829 Elevated white blood cell count, unspecified; D50.9 Iron deficiency anemia, unspecified; Z79.899 Other long term (current) drug therapy; Z90.49 Acquired absence of other specified parts of digestive tract; Z98.890 Other specified postprocedural states
CPT/HCPCS: 36415; 70030; 70450; 70496; 70498; 70551; 71045; 80048; 80053; 83735; 83880; 84484; 85025; 85610; 85730; 93005; 94667; 94668; 96361; 96365; 96375; 96376; 97161; 99285; G0378; J2919; Q3014; Q9967

== ENCOUNTER 2024-03-07 09:28 | Observation (INO) | payer OTHER, SELFPAY ==
[2024-03-07] VITALS (33 sets, daily range): BP systolic 118–174; BP diastolic 76–118; PULSE 57–94; TEMP 36.6–36.7; O2SAT 93–99; BMI 37.3
--- NOTE | 2024-03-07 09:35 | ECG_ITS ---
The [facility] Test Date: 2024-03-07 Pat Name: MARIA ALEJANDRA WILCOX Department: Room: - Gender: Male Assisted Living Coordinator: : 1965 Requested By: [id number] Order Number: [id number] Reading MD: AURELIO RODRIGUEZ Measurements Intervals [place] Rate: 58 P: 68 IN: 190 QRS: 46 QRSD: 86 T: 50 QT: 438 QTc: 434 Interpretive Statements 1100 Sinus rhythm 9110 normal ECG Compared to ECG 01/07/2024 11:59:17 First degree AV block no longer present Electronically Signed On 03-07-2024 22:44:54 EDT by AURELIO RODRIGUEZ
[2024-03-07] MEDS: 0.9 % SODIUM CHLORIDE 500 ML IV (09:38)
--- OUTSIDE RECORDS SUMMARY | 2024-03-07 09:44 | XMS_ITS | CCD ---
Author Organization [facility] Care Team Providers Care Federal Law Clerk Name Role Phone DR NADEEN BARLOW Admitting Unavailable YEN, DR SENOIR Attending Unavailable JOHNNYY, DR SENIOR Primary Care Unavailable YEN, DR SENIOR Consulting Unavailable WEST, DR JACE Wasserman Consulting Unavailable YEN, DR SENIOR Admitting Unavailable JOHNNYY, DR SENIOR Attending Unavailable HOY, DR SENIOR Primary Care Unavailable JOHNNYY, DR SENIOR Consulting Unavailable SILABRAHAM Oates A Referring Unavailable ABRAHAM MUJICA Attending Unavailable ROBBIE NIETO Consulting Unavailabl e INPATIENT, TELENEUROLOGY Consulting Unavail able NADEEN BARLOW Referring Unavailable NADEEN BARLOW M Referring Unavailable NADEEN BARLOW M Primary Care Unavailable BANDAR MCMANUS Attending Unavailable BANDAR MCMANUS Attending Unavailable Problems Active Problems Problem Classification Problem Date Documented Da te Episodic/Chronic Conditions associated with dizziness or vertigo (1 source) Dizziness and giddiness; Translations: [Dizziness and giddiness] Onset: 01-10-2024 Episodic Conditions associated with dizziness or vertigo (1 source) Conditions associated with dizziness or vertigo Onset: 01-08-2024 Osteoarthritis (2 sources) Unilateral primary osteoarthritis, left knee; Translations: [Unilateral primary osteoarthritis, left knee] Onset: 07-16-2022 Chronic Other non-traumatic joint disorders (4 sources) Pain in left knee; Translations: [PAIN IN LEFT KNEE] Onset: 07-07-2022 Episodic Other screening for suspected conditions (not mental disorders or infectious disease) (1 source) Encounter for screening for malignant neoplasm of prostate; Translations: [ENC SCREEN MALIG NEOPLASM PROSTATE] Onset: 08-10-2022 Episodic Residual codes; unclassified (1 source) Pain, unspecified; Translations: [Pain, unspecified] Onset: 01-08-2024 Episodic Past or Other Problems Problem Classification Problem Date Documented Da te Episodic/Chronic Other non-traumatic joint disorders (2 sources) Pain in right knee; Translations: [Pain in right knee] Onset: 07-16-2022 Episodic Results Test Name Value Interpretation Reference Range Facility [facility] 05-10-2023 Refill [id number] Hans Montenegro 1965 M Date Provider Department Center 05/10/2023 ABRAHAM LARA MP ORTHO MPORTHO Family History Family history unknown: Yes Reason for Visit and Comments: Med Refill [[id number]] Normal [facility] INSULINon 08-07-2022 Insulin 9.1 uIU/mL Normal 2.6-24.9 [facility] Comment on above: Performed By: #### I NSULIN #### [facility] [address] [place] [address] Dr. Arsh Nielsen CBC AUTO DIFFon 08-05-2022 BASO # 0.1 103/ul Normal 0.0-0.1 [facility] Comment on above: Performed By: #### C BC #### [facility] [address] [place] [address] Dr. Arsh Nielsen Basophils/100 WBC (Bld) 1.7 % Normal 0.2-2.0 [facility] Comment on above: Performed By: #### C BC #### [facility] [address] [place] [address] Dr. Arsh Nielsen EO # 0.2 103/ul Normal 0.0-0.7 [facility] Comment on above: Performed By: #### C BC #### [facility] [address] [place] [address] Dr. Arsh Nielsen Eosinophils/100 WBC (Bld) 3.5 % Normal 0.9-7.0 [facility] Comment on above: Performed By: #### C BC #### [facility] [address] [place] [address] Dr. Arsh Nielsen Erythrocyte distribution width (RBC) [Ratio] 12.9 % Normal 11.0-15.0 [facility] Comment on above: Performed By: #### C BC #### [facility] [address] [place] [address] Dr. Arsh Nielsen Hematocrit (Bld) [Volume fraction] 43.5 % Normal 42.0-54.0 [facility] Comment on above: Performed By: #### C BC #### [facility] [address] [place] [address] Dr. Arsh Nielsen Hemoglobin (Bld) [Mass/Vol] 14.8 g/dL Normal 14.0-18.0 [facility] Comment on above: Performed By: #### C BC #### [facility] [address] [place] [address] Dr. Arsh Nielsen IG # 0.01 10e3/ul Normal 0.00-0.03 [facility] Comment on above: Performed By: #### C BC #### [facility] [address] [place] [address] Dr. Arsh Nielsen IG % 0.2 % Normal 0.0-0.5 [facility] Comment on above: Performed By: #### C BC #### [facility] [address] [place] [address] Dr. Arsh Nielsen LYMPH # 1.4 103/ul Normal 1.2-3.8 [facility] Comment on above: Performed By: #### C BC #### [facility] [address] [place] [address] Dr. Arsh Nielsen Lymphocytes/100 WBC (Bld) 31.2 % Normal 20.5-60.0 [facility] Comment on above: Performed By: #### C BC #### [facility] [address] [place] [address] Dr. Arsh Nielsen MANUAL DIFF REQ NO Normal [facility] Comment on above: Performed By: #### C BC #### [facility] [address] [place] [address] Dr. Arsh Nielsen MCH (RBC) [Entitic mass] 30.9 pg Normal 25.9-34.0 [facility] Comment on above: Performed By: #### C BC #### [facility] [address] [place] [address] Dr. Arsh Nielsen MCHC (RBC) [Mass/Vol] 34.0 g/dL Normal 29.9-35.2 [facility] Comment on above: Performed By: #### C BC #### [facility] [address] [address] [address] Arsh Nielsen MCV (RBC) [Entitic vol] 90.8 fL Normal 80.0-94.0 [facility] Comment on above: Performed By: #### C BC #### [facility] [address] [address] [address] Arsh Nielsen MONO # 0.4 103/ul Normal 0.3-0.8 [facility] Comment on above: Performed By: #### C BC #### [facility] [address] [place] [address] Dr. Arsh Nielsen Monocytes/100 WBC (Bld) 8.0 % Normal 1.7-12.0 [facility] Comment on above: Performed By: #### C BC #### [facility] [address] [place] [address] Dr. Arsh Nielsen NEUT # 2.6 103/ul Normal 1.4-6.5 [facility] Comment on above: Performed By: #### C BC #### [facility] [address] [place] [address] Dr. Arsh Nielsen Neutrophils/100 WBC (Bld) 55.4 % Normal 43.0-75.0 [facility] Comment on above: Performed By: #### C BC #### [facility] [address] [address] [address] Arsh Nielsen Platelet mean volume (Bld) [Entitic vol] 9.3 fL Critically low 9.5-13.5 [facility] Comment on above: Performed By: #### C BC #### [facility] [address] [place] [address] Dr. Arsh Nielsen PLT 248 103/ul Normal 150-450 [facility] Comment on above: Performed By: #### C BC #### [facility] [address] [place] [address] Dr. Arsh Nielsen RBC 4.79 106/ul Normal 4.70-6.10 [facility] Comment on above: Performed By: #### C BC #### [facility] [address] [place] [address] Dr. Arsh Nielsen WBC 4.6 103/ul Normal 4.0-11.0 [facility] Comment on above: Performed By: #### C BC #### [facility] [address] [place] [address] Dr. Arsh Nielsen GLYCOHEMOGLOBIN A1Con 2021 ADA RECOMMENDATION SEE BELOW Normal [facility] Comment on above: Result Comment: ADA RECOMMENDED LIMIT 4.0 - 6.0 ADA THERAPEUTIC TARGET < 7.0 ACTION SUGGESTED > 7.0 Performed By: #### A 1C #### [facility] [address] [place] [address] Dr. Arsh Nielsen Glucose [Mass/Vol] 108 mg/dL Normal [facility] Comment on above: Performed By: #### A 1C #### [facility] [address] [place] [address] Dr. Arsh Nielsen HbA1c (Bld) [Mass fraction] 5.4 % Normal 4.5-6.2 [facility] Comment on above: Performed By: #### A 1C #### [facility] [address] [place] [address] Dr. Arsh Nielsen LIPID PROFILEon 08-05-2022 CHOL-HDL RATIO NORM SEE BELOW Normal [facility] Comment on above: Result Comment: 3.3 - 4.4 LOW RISK 4.4 - 7.1 AVERAGE RISK 7.1 - 11.0 MODERATE RISK >11.0 HIGH RISK Performed By: #### C MP, LIPID #### [facility] [address] [place] [address] Dr. Arsh Nielsen Cholesterol [Mass/Vol] 157 mg/dL Normal <=200 [facility] Comment on above: Performed By: #### C MP, LIPID #### [facility] [address] [place] [address] Dr. Arsh Nielsen Cholesterol in HDL [Mass/Vol] 35 mg/dL Critically low 40-60 [facility] Comment on above: Performed By: #### C MP, LIPID #### [facility] [address] [address] [address] Arsh Nielsen Cholesterol in LDL [Mass/Vol] 98.8 mg/dL Normal [facility] Comment on above: Performed By: #### C MP, LIPID #### [facility] [address] [address] [address] Arsh Nielsen Cholesterol.total/Cho lesterol in HDL [Mass ratio] 4.5 {ratio} Normal [facility] Comment on above: Performed By: #### C MP, LIPID #### [facility] [address] [place] [address] Dr. Arsh Nielsen HDL NORMAL > or = 60 mg/dl - LOW CARDIOVASCULAR RISK <40 mg/dl - HIGH CARDIOVASCULAR RISK Normal [facility] Comment on above: Performed By: #### C MP, LIPID #### [facility] [address] [place] [address] Dr. Arsh Nielsen LDL CALC NORMAL SEE BELOW Normal [facility] Comment on above: Result Comment: <100 mg/dl OPTIMAL 100 - 129 mg/dl NEAR OR ABOVE OPTIMAL 130 - 159 mg/dl BORDERLINE HIGH 160 - 189 mg/dl HIGH >190 mg/dl VERY HIGH Performed By: #### C MP, LIPID #### [facility] [address] [place] [address] Dr. Arsh Nielsen Triglyceride [Mass/Vol] 116 mg/dL Normal <=150 [facility] Comment on above: Performed By: #### C MP, LIPID #### [facility] [address] [place] [address] Dr. Arsh Nielsen VLDL CALC 23.2 mg/dL Normal [facility] Comment on above: Performed By: #### C MP, LIPID #### [facility] [address] [place] [address] Dr. Arsh Nielsen PROF 14(COMP METB)on 022 Albumin [Mass/Vol] 3.7 g/dL Normal 3.4-5.0 [facility] Comment on above: Performed By: #### C MP, LIPID #### [facility] [address] [place] [address] Dr. Arsh Nielsen Albumin/Globulin [Mass ratio] 1.1 {ratio} Normal [facility] Comment on above: Performed By: #### C MP, LIPID #### [facility] [address] [place] [address] Dr. Arsh Nielsen ALP [Catalytic activity/Vol] 58 U/L Normal 46-116 [facility] Comment on above: Performed By: #### C MP, LIPID #### [facility] [address] [place] [address] Dr. Arsh Nielsen ALT [Catalytic activity/Vol] 18 U/L Normal 16-63 [facility] Comment on above: Performed By: #### C MP, LIPID #### [facility] [address] [place] [address] Dr. Arsh Nielsen Anion gap [Moles/Vol] 9.5 mmol/L Normal [facility] Comment on above: Performed By: #### C MP, LIPID #### [facility] [address] [place] [address] Dr. Arsh Nielsen AST [Catalytic activity/Vol] 16 U/L Normal 15-37 [facility] Comment on above: Performed By: #### C MP, LIPID #### [facility] [address] [place] [address] Dr. Arsh Nielsen Bilirubin [Mass/Vol] 0.6 mg/dL Normal 0.2-1.0 [facility] Comment on above: Performed By: #### C MP, LIPID #### [facility] [address] [place] [address] Dr. Arsh Nielsen Calcium [Mass/Vol] 9.1 mg/dL Normal 8.5-10.1 [facility] Comment on above: Performed By: #### C MP, LIPID #### [facility] [address] [place] [address] Dr. Arsh Nielsen Chloride [Moles/Vol] 107 mmol/L Normal 98-107 [facility] Comment on above: Performed By: #### C MP, LIPID #### [facility] [address] [place] [address] Dr. Arsh Nielsen CO2 [Moles/Vol] 31.2 mmol/L Normal 21.0-32.0 [facility] Comment on above: Performed By: #### C MP, LIPID #### [facility] [address] [place] [address] Dr. Arsh Nielsen Creatinine [Mass/Vol] 0.96 mg/dL Normal 0.70-1.30 [facility] Comment on above: Performed By: #### C MP, LIPID #### [facility] [address] [place] [address] Dr. Arsh Nielsen EGFR-AF GERMAN >60 Normal >=60 [facility] Comment on above: Performed By: #### C MP, LIPID #### [facility] [address] [place] [address] Dr. Arsh Nielsen EGFR-NON AF GERMAN >60 Normal >=60 [facility] Comment on above: Performed By: #### C MP, LIPID #### [facility] [address] [place] [address] Dr. Arsh Nielsen Globulin (S) [Mass/Vol] 3.3 g/dL Normal [facility] Comment on above: Performed By: #### C MP, LIPID #### [facility] [address] [place] [address] Dr. Arsh Nielsen Glucose [Mass/Vol] 100 mg/dL Normal 74-106 [facility] Comment on above: Performed By: #### C MP, LIPID #### [facility] [address] [place] [address] Dr. Arsh Nielsen Potassium [Moles/Vol] 4.7 mmol/L Normal 3.5-5.1 [facility] Comment on above: Performed By: #### C MP, LIPID #### [facility] [address] [place] [address] Dr. Arsh Nielsen Protein [Mass/Vol] 7.0 g/dL Normal 6.4-8.2 [facility] Comment on above: Performed By: #### C MP, LIPID #### [facility] [address] [place] [address] Dr. Arsh Nielsen Sodium [Moles/Vol] 143 mmol/L Normal 136-145 [facility] Comment on above: Performed By: #### C MP, LIPID #### [facility] [address] [address] [address] Arsh Nielsen Urea nitrogen [Mass/Vol] 14.0 mg/dL Normal 7.0-18.0 [facility] Comment on above: Performed By: #### C EKATERINA, LIPID #### [facility] [address] [place], [place] [address] Dr. Arsh Nielsen Urea nitrogen/Creatinine [Mass ratio] 14.6 mg/mg Normal [facility] Comment on above: Performed By: #### C MP, LIPID #### [facility] [address] [place], [place] [address] Dr. Arsh Nielsen Office Visiton 07-16-2022 Follow-up visit [id number] Hans Montenegro 1965 M Date Provider Department Center 07/16/2022 ABRAHAM LARA MP ORTHO MPORTHO Family History Family history unknown: Yes Level of Service:[address]67 [place] OFFICE/OUTPATIENT NEW LOW [facility] 30-44 MINUTES Reason for Visit and Comments: Pain [136] Normal [facility] US SHELDON DOP LEG LTon 07-07-20 US SHELDON DOP LEG LT EXAMINATION: US SHELDON DOP LEG LT HISTORY: Pain of left knee joint COMPARISON: No relevant comparison available. TECHNIQUE: Grayscale, color and Doppler ultrasound FINDINGS: Region: Left leg Thrombus: None Flow: Normal Augmentation: Normal Compressibility: Normal Other: Fluid collection medial popliteal fossa measuring 3.5 x 1.5 x 1.4 cm IMPRESSION: No deep or superficial vein thrombus in the left leg *Exam performed in accordance with AIUM practice guidelines- Peripheral venous ultrasound, December 07, 2009. Electronically authenticated by: JACE SHARMA Date: 2022-07-07 12:15 Normal [facility] Outside Colonoscopyon 2019 Outside Colonoscopy [id number] #1.00CD:127 Normal [facility] Lab Reportson 08-12-2020 Lab Reports [id number] #1.00CD:127 Normal [facility] Provider Letter FTon 07-26 Provider Letter [facility] Nadeen Yen, [address] [place] [address] [place] [address] Re: HANS MONTENEGRO Date of : 1965 Thank you for your referral of Hans Montenegro who was seen on consultation on July 17, 2020, for screening colonoscopy. I have enclosed my consultation notes for your review. A colonoscopy is planned. Sincerely, Paulie Villalba MD General Surgery Normal [facility] Consent for Procedure/Surger yon 07-22-2020 Consent for Procedure/Surgery [id number] #1.00CD:127 Normal [facility] Ambulatory Clinical Summaryo n 07-17-2020 Ambulatory Clinical Summary {[id number]}CD:[id number] [facility] Patient Educationon 07-17-20 20 Patient Education Colonoscopy A colonoscopy is an exam to evaluate your entire colon. In this exam, your colon is cleansed. A long fiberoptic tube is inserted through your rectum and into your colon. The fiberoptic scope (endoscope ) is a long bundle of enclosed and very flexible fibers. These fibers transmit light to the area examined and send images from that area to your caregiver. Discomfort is usually minimal. You may be given a drug to help you sleep (sedative ) during or prior to the procedure. This exam helps to detect lumps (tumors ), polyps, inflammation, and areas of bleeding. Your caregiver may also take a small piece of tissue (biopsy ) that will be examined under a microscope. LET YOUR CAREGIVER KNOW ABOUT: ? Allergies to food or medicine. ? Medicines taken, including vitamins, herbs, eyedrops, vzgx-kfz-pdmqyte medicines, and creams. ? Use of steroids (by mouth or creams). ? Previous problems with anesthetics or numbing medicines. ? History of bleeding problems or blood clots. ? Previous surgery. ? Other health problems, including diabetes and kidney problems. ? Possibility of , if this applies. BEFORE THE PROCEDURE ? A clear liquid diet may be required for 2 days before the exam. ? Ask your caregiver about changing or stopping your regular medications. ? Liquid injections (enemas ) or laxatives may be required. ? A large amount of electrolyte solution may be given to you to drink over a short period of time. This solution is used to clean out your colon. ? You should be present 60 minutes prior to your procedure or as directed by your caregiver. AFTER THE PROCEDURE ? If you received a sedative or pain relieving medication, you will need to arrange for someone to drive you home. ? Occasionally, there is a little blood passed with the first bowel movement. Do not be concerned. FINDING OUT THE RESULTS OF YOUR TEST Not all test results are available during your visit. If your test results are not back during the visit, make an appointment with your caregiver to find out the results. Do not assume everything is normal if you have not heard from your caregiver or the medical facility. It is important for you to follow up on all of your test results. HOME CARE INSTRUCTIONS ? It is not unusual to pass moderate amounts of gas and experience mild abdominal cramping following the procedure. This is due to air being used to inflate your colon during the exam. Walking or a warm pack on your belly (abdomen ) may help. ? You may resume all normal meals and activities after sedatives and medicines have worn off. ? Only take uuin-atl-lynhxfr or prescription medicines for pain, discomfort, or fever as directed by your caregiver. Do not use aspirin or blood thinners if a biopsy was taken. Consult your caregiver for medicine usage if biopsies were taken. SEEK IMMEDIATE MEDICAL CARE IF: ? You have a fever. ? You pass large blood clots or fill a toilet with blood following the procedure. This may also occur 10 to 14 days following the procedure. This is more likely if a biopsy was taken. ? You develop abdominal pain that keeps getting worse and cannot be relieved with medicine. Document Released: 08/27/2001 Document Revised: 11/21/2012 Document Reviewed: 04/11/2009 ExitCare? Patient Information ?2013 [email or web address]. Normal [facility] Physician Referralon 020 Physician Referral [id number] 1.00CD:[address] [facility] Encounters Encounter Date Encounter Type Care Provider Facility Start: 02-28-2024 End: 02-29-2024 ambulatory BANDAR MCMANUS Not Available Start: 01-27-2024 End: 01-27-2024 ambulatory BANDARPHOEBE MCMANUS Not Available Start: 01-12-2024 End: 02-12-2024 ambulatory NADEEN BARLOW [facility] Start: 01-10-2024 End: 01-12-2024 ambulatory NADEEN BARLOW [facility] Start: 01-09-2024 ambulatory [facility] Start: 01-08-2024 End: 01-11-2024 Emergency department patient visit [facility] Start: 01-08-2024 ambulatory [facility] Start: 08-10-2022 Encounter for genera l adult medical examination without abnormal findings DR NADEEN BARLOW [facility] Start: 08-05-2022 End: 08-06-[address] NADEEN BARLOW Facility:[facility] Start: 08-05-2022 End: 08-06-2022 Encounter for general adult medical examination without abnormal findings DR NADEEN BARLOW Facility:[facility] Start: 07-16-2022 End: 07-17-2022 ambulatory [facility] Start: 07-07-2022 End: 07-08-[address] NADEEN BARLOW Facility:[facility] Procedures Date Procedure Procedure Detail Performing Clinician Start: 08-05-[address] PEYMAN BARLOW Comment on above: Performed By: #### P [facility] #### [facility] [address] [place] [address] Dr. Arsh Nielsen Payers Date Payer Category Payer Unknown [id number] 2022 Private Health Insurance [id number] 1965 Unknown [id number] 2.16.84 [id number] 1965 Unknown [id number] 2.16.84 [id number] 1965 Unknown [id number] 2.16.8 [id number] 1965 Unknown [id number] 2.16.8 [id number] 1965 Unknown [id number] 2.16.8 40.1.145200.3.579.2.6 1965 Unknown [id number] 2.16.8 [id number] 1965 Unknown [id number] 2.16.8 40.1.069928.3.579.2.1285 1965 Unknown [id number] 2.16.8 40.1.017777.3.579.2.1285 1965 Unknown [id number] 2.16.8 40.1.032108.3.579.2.6 1965 Unknown [id number] 2.16.84 0.1.473618.3.579.2.9 1965 Unknown [id number] 2.16.84 [id number] 1961 Unknown [id number] Progress note 07-16-2022 Note Date & Type Note Facility 07-16-2022 Note 57-year-old male see n here today for 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 He states he developed some discomfort to his left knee and was sent for an ultrasound and showed a Fontaine's cyst. He was sent here to the clinic today for an evaluation. He states his primary care provider started him on diclofenac and that is pretty much resolved his pain. He denies any pain at this time reports minimal swelling to the back of his left knee. His ultrasound films and report are not available but the patient relates his primary care provider told him he had a Fontaine's cyst. Review of systems denies fever chills or constitutional symptoms,no additional complaints. Physical exam HEENT normocephalic/atraumatic Neck trachea midline Skin intact Mood and affect appropriate Lungs no dyspnea noted Gait ambulates with a normal gait Coordination intact Alert and oriented time person and place Exam the left lower extremity shows painless range of motion of left hip and ankle. Full exam left knee shows the skin to be intact no open wounds or ulcerations noted. He is with no tenderness palpation to the medial or lateral joint line. He is with minimal swelling noted to the posterior fossa he is nontender to this area. He is with full range of motion of the knee. Motor strength 5 out of 5 Sensation intact Calf soft and nontender bilaterally X-rays obtained and reviewed today show mild to moderate osteoarthritis to his left knee. He does have an H Impression left knee osteoarthritis Plan Clinical and radiographic findings were discussed with the patient. We would like to obtain a copy of his ultrasound report. At this stage the patient does report his pain is resolved with the diclofenac. He was given a prescription for physical therapy will return to clinic in follow-up in 4 weeks at that time review of the ultrasound report and order an MRI if indicated [facility] Clinical Note 07-17-2020 Note Date & Type Note Facility 07-17-2020 Note Chief Complaint referral for screening colonoscopy [facility] Staff 55 year old male presents on consultation from Dr. Barlow for screening colonoscopy. Last colonoscopy completed 06/2015 without findings. Family history of colon cancer in grandmother; diagnosed age <50. Father with rectal cancer; age 54. Denies abdominal or rectal pain. No rectal bleeding. No nausea or vomiting. No change in bowel habits. Denies unexplained weight loss. History of Present Illness 55 yo male with h/o htn, referred for surveillance colonoscopy; patient has fmhx of rectal cancer in his father, dx at age 54 and colon cancer in grandmother dx < 50 yo; no fmhx of IBD; last colonoscopy 2014 wnl, also one in 2009 normal, denies change in bms or blood in stools, no abdominal complaints; only abdominal operation appendectomy; denies asa or NSAID use, no SBE prophylaxis; denies tobacco use. Review of Systems PHQ Score Initial Depression Screen Score: 0 ROS - Provider Constitutional: no fever, no sweats, no weight loss. Eyes: no glasses, no blurred vision, no visual loss. ENMT: no dentures, no hoarseness, no swallowing difficulties, no hearing loss, no ear infection(s), no nose bleeds. Cardiovascular: high blood pressure, no chest pain, regular heartbeat, no heart murmur. Respiratory: no shortness of breath, no cough, no asthma, no wheezing. Gastrointestinal: no nausea, no vomiting, no diarrhea, no constipation, no blood in stool, no change in bowel habits, no abdominal pain, no hepatitis. Genitourinary: no kidney stones, no urine infection, no dysuria. Musculoskeletal: no pain, no weakness. Skin: no changing moles, no rash, no skin lumps. Neurologic: no seizures, no epilepsy, no headache. Psychiatric: no emotional or psychiatric problem. Heme/Lymph: no bleeding problems, no anemia, no blood clots, no transfusions. Allergy/Immunologic: no swollen lymph nodes/glands, no IV drug abuse. Other: Additional ROS info: Except as noted in the above Review of Systems and in the History of Present Illness, all other systems have been reviewed and are negative or noncontributory. Physical Exam Vitals & Measurements T: 36.3 ?C (Tympanic) HR: 80(Peripheral) RR: 16 BP: 146/82 HT: 177.8 cm HT: 177.8 cm WT: 116.6 kg WT: 116.6 kg BMI: 36.88 HEENT: normal conjunctiva, sclera clear, no scleral icterus, EOM intact, PERRLA, oral mucosa moist without lesions. Neck: trachea midline, no mass, symmetric, no thyromegaly or nodules, no adenopathy Respiratory: lungs CTA, respirations non labored. Cardiovascular: regular rate and rhythm, no murmur, no pedal edema or varicosities. Gastrointestinal: obese, soft, non distended, no tenderness, no masses, no palpable hernias, diastasis recti no, no hepatosplenomegaly; normal bs Lymphatic: no cervical adenopathy, no axillary adenopathy, Musculoskeletal: normal gait, digits and nails without infection, nodes, cyanosis, clubbing. Skin: no rashes, no lesions, no ulcers, no subcutaneous nodules, induration. Psychiatric/Neuro: oriented to time, place, person, judgement normal, affect appropriate for age, insight intact, no focal deficits. Tests: review of old records completed, Discussed surgical options, risks, and possible complications with patient. Assessment/Plan 1. Family history of colon cancer in father (Z80.0: Family history of malignant neoplasm of digestive organs) plan colonoscopy under anesthesia, informed consent obtained. patient understands the risks associated with COVID-19, and the need for preoperative testing with self-isolation until the procedure. 2. BMI 36.0-36.9,adult (Z68.36: Body mass index [BMI] 36.0-36.9, adult) recommend diet and exercise. Follow-up No qualifying data available Patient Education Colonoscopy Problem List/Past Medical History Ongoing BMI 36.0-36.9,adult Cervical spondylosis Eczema Family history of colon cancer in father History of colitis HTN (hypertension) Insomnia Migraine Sleep apnea Historical No qualifying data Procedure/Surgical History Colonoscopy (07/03/2015), Appendectomy, Bone spur of right shoulder, Vasectomy. Medications Coreg 12.5 mg Tab, 12.5 mg= 1 tab(s), Oral, BID [place]-3 Fish Oil, 2 cap(s), Oral, Daily Allergies No Known Medication Allergies Social History Alcohol - Denies Alcohol Use, 07/17/2020 Substance Abuse - Denies Substance Abuse, 07/17/2020 Tobacco Never (less than 100 in lifetime) Tobacco Use:. Never Smokeless Tobacco Use:. Cigarettes, 07/17/2020 Family History Primary malignant neoplasm of rectum: Father. Immunizations Vaccine Date Status influenza virus vaccine, inactivated 06/15/2019 Recorded [facility] Comment on above: Result Comment: Elec tronically Signed By: NISA MCMAHAN, Paulie Recinos\Date and Time Signed: 07/17/20 15:44 EST Summary Purpose Family History No Family History Records FoundNo Family History Records FoundNo Family History Records FoundNo Family History Records FoundNo Family History Records FoundNo Family History Records Found Advance Directives No Advanced Directives Records FoundNo Advanced Directives Records FoundNo Advanced Directives Records FoundNo Advanced Directives Records FoundNo Advanced Directives Records FoundNo Advanced Directives Records Found Additional Source Comments (unrecognized sect ion and content) No Status Records FoundNo Status Records FoundNo Status Records FoundNo Status Records FoundNo Status Records FoundNo Status Records Found INFORMATION SOURCE (unrecogn ized section and content) DATE CREATED AUTHOR 01/26/2021 [facility] DATE CREATED AUTHOR AUTHOR'S ORGANIZ ATION 08/10/2022 [facility] DATE CREATED AUTHOR AUTHOR'S ORGANIZ ATION 05/10/2023 [facility] DATE CREATED AUTHOR AUTHOR'S ORGANIZ ATION 01/14/2024 [facility] DATE CREATED AUTHOR AUTHOR'S ORGANIZ ATION 02/13/2024 [facility] DATE CREATED AUTHOR AUTHOR'S YULIYA ATION 03/01/2024 [facility] EPIC FOR RECORDS PERTAINING TO PATIENTS WHO ARE OR HAVE BEEN ENROLLED IN A CHEMICAL DEPENDENCY/SUBSTANCEABUSE PROGRAM, SOME INFORMATION MAY BE OMITTED. This clinical summary was aggregated from multiple sources. Caution should be exercised in using it in the provision of clinical care. This summary normalizes information from multiple sources, and as a consequence, information in this document may materially change the coding, format and clinical context of patient data. In addition, data may be omitted in some cases. CLINICAL DECISIONS SHOULD BE BASED ON THE PRIMARY CLINICAL RECORDS. [facility] [employer] provides no warranty or guarantee of the accuracy or completeness of information in this document.
[2024-03-07 09:47] LABS: Basophils Percent Auto 0.2 % (0.2-2.0); Eosinophils Absolute Auto 0.1 10^3/uL (0.0-0.7); Eosinophils Percent Auto 2.4 % (0.9-7.0); Hematocrit 43.1 % (42.0-54.0); Hemoglobin 14.5 g/dL (14.0-18.0); Immature Granulocytes Abs Auto 0.03 10^3/uL (0.00-0.03); Immature Granulocytes Pct Auto 0.7 % (0.0-0.5); Lymphocytes Absolute Auto 1.2 10^3/uL (1.2-3.8); Lymphocytes Percent Auto 27.3 % (20.5-60.0); Mean Corpuscular HGB Conc 33.6 g/dL (29.9-35.2); Mean Corpuscular Hemoglobin 30.5 pg (25.9-34.0); Mean Corpuscular Volume 90.5 fL (80.0-94.0); Mean Platelet Volume 9.2 fL (9.5-13.5); Monocytes Absolute Auto 0.1 10^3/uL (0.3-0.8); Monocytes Percent Auto 1.8 % (1.7-12.0); Neutrophils Absolute Auto 3.1 10^3/uL (1.4-6.5); Neutrophils Percent Auto 67.6 % (43.0-75.0); Platelet Count 214 10^3/uL (150-450); Red Blood Count 4.76 10^6/uL (4.70-6.10); Red Cell Distribution Width 12.5 % (11.0-15.0); White Blood Count 4.6 10^3/uL (4.0-11.0)
--- NOTE | 2024-03-07 09:52 | ED_ITS ---
HPI HPI - General Adult General Chief complaint: Chest Pain Stated complaint: DIZZINESS/ GENERAL WEAKNESS Time Seen by Provider: 03/07/24 09:34 Source: patient Mode of arrival: ambulance Limitations: no limitations History of Present Illness HPI narrative: Patient presents to ED from work. 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 He said today at the factory he was getting lightheaded and felt like he was about to pass out. For the past 2 months he has been dealing with some vertigo on and off. He said the vertigo about 2 months ago was a lot worse and it is better but he still gets a little bit vertiginous at times. He also reports some chest pressure on and off throughout this time as well and did have some chest pressure when he felt like he was going to pass out today. He has been dealing with high blood pressure over the past couple of months and they increased his carvedilol. Typically his blood pressure runs high but today when he was feeling lightheaded they called the squad and when they arrived his blood pressure was 103 systolic which she said is very low for him. He Reports some dry heaves when this was happening this morning and he said he could not stand up so they called the squad to bring him into the ED for further evaluation. He did receive aspirin and route but no nitro. EKG and route appear normal. Patient states upon arrival that he feels pretty much back to normal and he feels fine now. No continued chest pain or pressure. His vertigo symptoms have improved and resolved for now. He denies any fevers cough or weakness. No headaches or visual changes or confusion. Related Data Home Medications ?Medication ?Instructions ?Recorded ?Confirmed clonidine HCl 0.2 mg tablet 0.2 mg PO BID 03/07/24 03/07/24 cyproheptadine 4 mg tablet 2 mg PO .QHS 03/07/24 03/07/24 hydrochlorothiazide 12.5 mg tablet 12.5 mg PO DAILY 03/07/24 03/07/24 hydroxyzine HCl 10 mg tablet 10 mg PO .QHS 03/07/24 03/07/24 Previous Rx's ?Medication ?Instructions ?Recorded aspirin 81 mg tablet,delayed 81 mg PO QD #30 tabs 01/08/24 release carvedilol 25 mg tablet 25 mg PO BID #60 tabs 01/08/24 meclizine 12.5 mg tablet 25 mg (2 x 12.5 mg) PO Q6H #20 tabs 01/08/24 Allergies Allergy/AdvReac Type Severity Reaction Status Date / Time No Known Drug Allergies Allergy Verified 03/07/24 09:35 Opioid HPI Opioid Management Most Recent Opioid Data: Last Pain Scale 0 01/08/24 22:57 Last ORT Total Score 0 03/07/24 13:11 Last ORT Risk Category Low Risk 03/07/24 13:11 Review of Systems ROS Status of ROS 10 or more systems reviewed and unremark able except as noted in history and below PFSH PFSH Medical History (Updated 03/07/24 @ 13:52 by Jo-Ann Vicente DO) Nausea and vomiting ?R11.2 - Nausea with vomiting, unspecified (ICD-10) Vertigo ?R42 - Dizziness and giddiness (ICD-10) Hypertension ?I10 - Essential (primary) hypertension (ICD-10) Surgical History (Updated 01/07/24 @ 15:20 by Rose Mcclellan) History of appendectomy ?Z90.49 - Acquired absence of other specified parts of digestive tract (ICD- 10) H/O rotator cuff surgery ?Z98.890 - Other specified postprocedural states (ICD-10) Family History (Updated 01/07/24 @ 15:22 by Rose Mcclellan) Father Family history of cancer Family history of hypertension Aunt Family history of cancer Grandfather No problems noted. 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: Yes Highest level of school completed/degree received: Associate degree: academic program Are you now , , , , never or living with a partner: Little interest or pleasure in doing things: not at all Feeling down, depressed, or hopeless: not at all Feel stressed/tense/nervous/anxious/difficulty sleeping: not at all Do you think of yourself as: straight/heterosexual Gender Identity: male Exam Narrative Exam Narrative: Time Seen: [] Vital Signs: [Per nurse's notes.] General: [Alert] Skin: [Warm, dry, no rash.] Head: [Normocephalic, atraumatic.] Neck: [Supple, trachea midline.] Eye: [Pupils are equal, round and reactive to light, extraocular movements are intact, normal conjunctiva.] Ears, nose, mouth and throat: oral mucosa moist. Cardiovascular: [Regular rate and rhythm, no murmur.] Respiratory: [Lungs are clear to auscultation, respirations are non-labored, breath sounds are equal.] Chest wall: [No tenderness, no deformity.] Gastrointestinal: [Obese,Soft, nontender, non distended, normal bowel sounds.] MSK: 5 out of 5 muscle strength x 4 extremities no calf pain or edema Lymphatics: [No lymphadenopathy.] Psychiatric: [Cooperative, appropriate mood & affect.] Neurological: [Alert and oriented to person, place, time, and situation, no focal neurological deficit observed.] Constitutional Vital Signs, click to edit/add: Last Vital Signs Temp 97.8 F 03/07/24 13:23 Pulse 60 03/07/24 13:23 Resp 16 03/07/24 13:23 BP 153/99 H 03/07/24 13:23 Pulse Ox 97 03/07/24 13:23 O2 Del Method Room Air 03/07/24 13:23 Course Vital Signs Vital signs: Vital Signs Temperature 98.0 F 03/07/24 09:29 Pulse Rate 60 03/07/24 09:29 Respiratory Rate 23 H 03/07/24 09:29 Blood Pressure 144/91 H 03/07/24 09:29 Pulse Oximetry 96 03/07/24 09:29 Oxygen Delivery Method Room Air 03/07/24 09:29 Temperature 97.8 F 03/07/24 13:23 Pulse Rate 60 03/07/24 13:23 Respiratory Rate 16 03/07/24 13:23 Blood Pressure 153/99 H 03/07/24 13:23 Pulse Oximetry 97 03/07/24 13:23 Oxygen Delivery Method Room Air 03/07/24 13:23 Medical Decision Making MDM Narrative Medical decision making narrative: Patient's labs are relatively nonacute. First troponin was 11 however the second troponin was 22. Given the fact that his troponin is continuing to increase I feel that the patient should be monitored overnight. He was lightheaded and near syncopal and had some chest pressure. I spoke to Dr. Barlow who is actually the patient's primary doctor as well and he agrees observation admit telemetry bed for further monitoring. Patient is comfortable with care plan for admission Stable here in ED Differential Diagnosis Differential Diagnosis: Chest pain, ACS, electrolyte abnormality, syncope, vertigo Medical Records Medical records reviewed: Yes I reviewed the patient's medical records Lab Data Lab results reviewed: Yes I reviewed the patient's lab results Labs: Lab Results 03/07/24 03/07/24 Range/Units 09:30 11:30 WBC 4.6 (4.0-11.0) 10^3/uL RBC 4.76 (4.70-6.10) 10^6/uL Hgb 14.5 (14.0-18.0) g/dL Hct 43.1 (42.0-54.0) % MCV 90.5 (80.0-94.0) fL MCH 30.5 (25.9-34.0) pg MCHC 33.6 (29.9-35.2) g/dL RDW 12.5 (11.0-15.0) % Plt Count 214 (150-450) 10^3/uL MPV 9.2 L (9.5-13.5) fL Neut % (Auto) 67.6 (43.0-75.0) % Lymph % (Auto) 27.3 (20.5-60.0) % [place] % (Auto) 1.8 (1.7-12.0) % Eos % (Auto) 2.4 (0.9-7.0) % Baso % (Auto) 0.2 (0.2-2.0) % Neut # (Auto) 3.1 (1.4-6.5) 10^3/uL Lymph # (Auto) 1.2 (1.2-3.8) 10^3/uL [place] # (Auto) 0.1 L (0.3-0.8) 10^3/uL Eos # (Auto) 0.1 (0.0-0.7) 10^3/uL Baso # (Auto) 0.0 (0.0-0.1) 10^3/uL Abs Immat Gran (auto) 0.03 (0.00-0.03) 10^3/uL Imm/Tot Granulo (auto) 0.7 H (0.0-0.5) % Sodium 140 (136-145) mmol/L Potassium 4.3 (3.5-5.1) mmol/L Chloride 107 (98-107) mmol/L Carbon Dioxide 23.3 (21.0-32.0) mmol/L Anion Gap 14.0 BUN 23.0 H (7.0-18.0) mg/dL Creatinine 1.07 (0.70-1.30) mg/dL Est GFR ( Amer) >60 (>=60) Est GFR (Non-Af Amer) >60 (>=60) BUN/Creatinine Ratio 21.5 Glucose 115 H (74-106) mg/dL Calcium 8.1 L (8.5-10.1) mg/dL Total Bilirubin 0.5 (0.2-1.0) mg/dL AST 7 L (15-37) U/L ALT 19 (16-63) U/L Alkaline Phosphatase 54 (46-116) U/L Troponin I High Sens 11.1 22.0 (4.0-76.1) pg/mL Total Protein 6.2 L (6.4-8.2) g/dL Albumin 3.1 L (3.4-5.0) g/dL Globulin 3.1 g/dL Albumin/Globulin Ratio 1.0 Imaging Data Chest x-ray: Radiologist's impression: ITS Impressions Chest X-Ray 03/07/24 09:54 IMPRESSION: No acute heart or lung disease identified. Electronically authenticated by: JACE JOHNSON Date: 03/07/2024 10:05 ECG Data Attestation: I personally reviewed and interpreted this ECG as follows: Interpretation: EKG INTERPRETATION Time: []934 Rate: []58 Rhythm: _ []Sinus bradycardia ST segments: _ []No acute ST elevation or depression T waves: _ [] Ectopy: _ [] P wave/[place] interval: _ [] QRS interval: _ [] QT interval: _ [] Comparison: _ [] Comparison EKG date: [] Performed by: [self] Discharge Plan Discharge Chief Complaint: Chest Pain Clinical Impression: Chest pain Patient Disposition: Admitted as Observation Time of Disposition Decision: 13:51 Condition: Fair Discharge Date/Time: 03/07/24 12:47
--- NOTE | 2024-03-07 09:54 | XR_ITS ---
The [address] [id number] Patient Name: MARIA ALEJANDRA WILCOX MRN: [id number] date: 1965 Sex: M Assigned Patient Location: ER Current Patient Location: ER Accession/Order Number: [id number] Exam Date: 03/07/2024 09:45 Report Date: 03/07/2024 10:05 At the request of: MICHELLE CONLEY Procedure: XR chest 1V EXAM: Chest x-ray HISTORY: . chest pressure . COMPARISON: 01/07/2024 TECHNIQUE: Single view of the chest FINDINGS: Heart and vascularity are unremarkable. Lungs are free of focal infiltrates. Grossly no bony abnormality is appreciated. EKG leads overlie the chest. XR/XR chest 1V IMPRESSION: No acute heart or lung disease identified. Electronically authenticated by: JACE JOHNSON Date: 03/07/2024 10:05
[2024-03-07 10:03] LABS: Alanine Aminotransferase 19 U/L (16-63); Albumin Level 3.1 g/dL (3.4-5.0); Alkaline Phosphatase 54 U/L (46-116); Aspartate Amino Transferase 7 U/L (15-37); BUN Creatinine Ratio 21.5; Bilirubin Total 0.5 mg/dL (0.2-1.0); Calcium 8.1 mg/dL (8.5-10.1); Carbon Dioxide 23.3 mmol/L (21.0-32.0); Chloride 107 mmol/L (98-107); Estimated GFR (African America >60 (>=60); Estimated GFR (Non-African Ame >60 (>=60); Globulin 3.1 g/dL; Glucose 115 mg/dL (74-106); Potassium 4.3 mmol/L (3.5-5.1); Sodium 140 mmol/L (136-145); Total Protein 6.2 g/dL (6.4-8.2); Troponin I High Sensitivity 11.1 pg/mL (4.0-76.1)
--- NOTE | 2024-03-07 12:27 | P.HP_ITS ---
HPI H&P: HPI History of Present Illness Chief complaint: DIZZINESS/ GENERAL WEAKNESS Narrative: Patient is doing normal activities and started having some lightheaded spells. Had a blood pressure check and his blood pressure is low for him in the systolics of 110s. Some chest pressure as well. No diaphoresis. With the near syncope and hypertension who presented to the emergency room. In the emergency room his troponins are negative, blood pressure improved, would not given nitro glycerin secondary to the hypotension. Currently feels back to his baseline. However troponin has doubled from 1st-2nd levels. Patient will be admitted to observation. When I saw patient in the ER, rest comfortably bed, discussed options of home versus staying and getting testing completed with finishing out the workup for his acute episode of the chest pressure. Agreed to observation status. Opioid HPI Opioid Management Most Recent Pain and Opioid Data: Last Pain Scale 0 01/08/24 22:57 Last ORT Total Score 0 01/07/24 15:33 Last ORT Risk Category Low Risk 01/07/24 15:33 Review of Systems ROS Status of ROS 10 or more systems reviewed and unremark able except as noted in history and below PFSH [facility] Medical History (Updated 03/07/24 @ 12:44 by Francisco Barlow MD) Nausea and vomiting ?R11.2 - Nausea with vomiting, unspecified (ICD-10) Vertigo ?R42 - Dizziness and giddiness (ICD-10) Hypertension ?I10 - Essential (primary) hypertension (ICD-10) Surgical History (Updated 01/07/24 @ 15:20 by Rose Mcclellan) History of appendectomy ?Z90.49 - Acquired absence of other specified parts of digestive tract (ICD- 10) H/O rotator cuff surgery ?Z98.890 - Other specified postprocedural states (ICD-10) Family History (Updated 01/07/24 @ 15:22 by Rose Mcclellan) Father Family history of cancer Family history of hypertension Aunt Family history of cancer Grandfather No problems noted. 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: Yes Highest level of school completed/degree received: Associate degree: occupational, technical, vocational program Are you now , , , , never or living with a partner: Little interest or pleasure in doing things: not at all Feeling down, depressed, or hopeless: not at all Feel stressed/tense/nervous/anxious/difficulty sleeping: not at all Do you think of yourself as: straight/heterosexual Gender Identity: male Meds Home Medications and Allergies Home Medications ?Medication ?Instructions ?Recorded ?Confirmed ?Type aspirin 81 mg tablet,delayed 81 mg PO QD #30 tabs 01/08/24 03/07/24 Rx release carvedilol 25 mg tablet 25 mg PO BID #60 tabs 01/08/24 03/07/24 Rx meclizine 12.5 mg tablet 25 mg (2 x 12.5 mg) PO Q6H #20 tabs 01/08/24 03/07/24 Rx clonidine HCl 0.2 mg tablet 0.2 mg PO BID 03/07/24 03/07/24 History cyproheptadine 4 mg tablet mg 03/07/24 History hydrochlorothiazide 12.5 mg tablet 12.5 mg PO DAILY 03/07/24 03/07/24 History hydroxyzine HCl 10 mg tablet mg 03/07/24 History Allergies Allergy/AdvReac Type Severity Reaction Status Date / Time No Known Drug Allergies Allergy Verified 03/07/24 09:35 Exam Constitutional Vital Signs, click to edit/add: Last Vital Signs Temp 98.0 F 03/07/24 09:29 Pulse 58 L 03/07/24 11:20 Resp 16 03/07/24 11:20 BP 118/78 03/07/24 11:15 Pulse Ox 97 03/07/24 11:20 O2 Del Method Room Air 03/07/24 09:29 Documenting provider has reviewed patient's vital signs: yes Common normals: no apparent distress Chest Common normals: inspection of chest normal Respiratory Common normals: normal respiratory effort, no retractions and clear to auscultation bilaterally Cardio Common normals: regular rate, regular rhythm and no murmurs GI Common normals: Normal to inspection, nondistended, normoactive bowel sounds present, soft to palpation and non-tender Results Labs Labs: Short CBC 03/07/24 Range/Units 09:30 WBC 4.6 (4.0-11.0) 10^3/uL Hgb 14.5 (14.0-18.0) g/dL Hct 43.1 (42.0-54.0) % Plt Count 214 (150-450) 10^3/uL BMP 03/07/24 09:30 Sodium 140 Potassium 4.3 Chloride 107 Carbon Dioxide 23.3 BUN 23.0 H Creatinine 1.07 Glucose 115 H Calcium 8.1 L Liver Function 03/07/24 Range/Units 09:30 Total Bilirubin 0.5 (0.2-1.0) mg/dL AST 7 L (15-37) U/L ALT 19 (16-63) U/L Alkaline Phosphatase 54 (46-116) U/L Albumin 3.1 L (3.4-5.0) g/dL Assessment and Plan Assessment and Plan (1) Chest pain: (2) Hypertension: (3) Near syncope: Plan Bradycardia, respiratory distress, labile hypertension with hypotensive episode secondary to chest pain-pressure type-near syncope. With significant symptoms, will place patient on telemetry, consult to cardiology, cycle his cardiac markers, check echocardiogram, aspirin today. Diagnosed on evaluation by cardiology, continue outpatient workup and treatment versus heart cath History of hypertension-on, continue with home medications for now. Intermittent peripheral edema-check BNP and thyroid levels. Generalized anxiety disorder-use as needed hydroxyzine History of vertigo-is near syncopal episodes morning was not related to his vertigo episodes Admission status: Place patient in observation bed on telemetry, cycle cardiac markers, greater than 50% chance she will be discharged prior to 2 midnights for medically necessary treatment
--- NOTE | 2024-03-07 12:27 | PM.DS1 ---
DS: Providers Provider Primary care physician: Francisco Zhou MD DS: Diagnosis Discharge Diagnosis (1) Near syncope: (2) Chest pain: DS: Summary Hospital Course Hospital Course: Patient to emergency room for new syncopal episode and chest pain, pressure type, patient was admitted, did his troponins x 3, all negative, repeated a fourth but just to ensure since the first 2 had doubled, fourth 1 also normal, consult to cardiology, I discussed case with the cardiology team, they were comfortable with him going home since he is currently symptom-free, will set up outpatient stress testing and echocardiogram at that time. Medications see list. See me in the office tomorrow. Status at Discharge Functional status at discharge: independent ambulation Overall status at discharge: patient is back to baseline Time Spent with Patient Time attestation: Total time spent providing and/or coordinating discharge services: Time spent: less than 30 minutes Exam Constitutional Vital Signs, click to edit/add: Last Vital Signs Temp 98.0 F 03/07/24 09:29 Pulse 58 L 03/07/24 11:20 Resp 16 03/07/24 11:20 BP 118/78 03/07/24 11:15 Pulse Ox 97 03/07/24 11:20 O2 Del Method Room Air 03/07/24 09:29 Documenting provider has reviewed patient's vital signs: yes Common normals: no apparent distress Chest Common normals: inspection of chest normal Respiratory Common normals: normal respiratory effort, no retractions and clear to auscultation bilaterally Cardio Common normals: regular rate, regular rhythm and no murmurs GI Common normals: Normal to inspection, nondistended, normoactive bowel sounds present, soft to palpation and non-tender DS: Data Data Completed and Pending Labs on day of discharge: Labs from last 24 hours 03/07/24 03/07/24 11:30 09:30 WBC 4.6 RBC 4.76 Hgb 14.5 Hct 43.1 MCV 90.5 MCH 30.5 MCHC 33.6 RDW 12.5 Plt Count 214 MPV 9.2 L Neut % (Auto) 67.6 Lymph % (Auto) 27.3 [place] % (Auto) 1.8 Eos % (Auto) 2.4 Baso % (Auto) 0.2 Neut # (Auto) 3.1 Lymph # (Auto) 1.2 [place] # (Auto) 0.1 L Eos # (Auto) 0.1 Baso # (Auto) 0.0 Abs Immat Gran (auto) 0.03 Imm/Tot Granulo (auto) 0.7 H Sodium 140 Potassium 4.3 Chloride 107 Carbon Dioxide 23.3 Anion Gap 14.0 BUN 23.0 H Creatinine 1.07 Est GFR ( Amer) >60 Est GFR (Non-Af Amer) >60 BUN/Creatinine Ratio 21.5 Glucose 115 H Calcium 8.1 L Total Bilirubin 0.5 AST 7 L ALT 19 Alkaline Phosphatase 54 Troponin I High Sens 22.0 11.1 Total Protein 6.2 L Albumin 3.1 L Globulin 3.1 Albumin/Globulin Ratio 1.0 Discharge Plan Discharge Disposition: Home, Self-Care Condition: Fair Discharge Medications: Continued carvedilol 25 mg Tablet 25 mg PO BID Qty: 60 11RF aspirin 81 mg Tablet,Delayed Release (Dr/Ec) 81 mg PO QD Qty: 30 11RF hydroxyzine HCl 10 mg tablet 10 mg PO .QHS hydrochlorothiazide 12.5 mg tablet 12.5 mg PO DAILY Activity: increase activity as tolerated Diet: advance to your usual diet Print Language: Occitan Patient Instructions: Chest Pain (ED), Near Syncope (DC) Forms: Portal Instructions Follow Up Appointments: please call dr grimes office in the am [phone] and schedule appt for 01/07/[address] zhou Discharge Date/Time: 03/07/24 18:38
--- OUTSIDE RECORDS SUMMARY | 2024-03-07 13:08 | XMS_ITS ---
Patient Summarization (C-CDA 2.1 CCD) Created on: March 07, 2024 HANS MONTENEGRO : 1965 Sex: Male Author Organization Sample organization Care Team Providers Care Polygraph Operator Name Role Phone CRISTOBAL, DR SENIOR Admitting Unavailable JOHNNYY, DR SENIOR Attending Unavailable JOHNNYY, DR SENIOR Primary Care Unavailable JOHNNYY, DR SENIOR Consulting Unavailable WEST, DR JACE Wasserman Consulting Unavailable JOHNNYY, DR SENIOR Admitting Unavailable HOY, DR SENIOR Attending Unavailable HOY, DR SENIOR Primary Care Unavailable HOY, DR SENIOR Consulting Unavailable ABRAHAM MUJICA Referring Unavailable ABRAHAM MUJICA Attending Unavailable ROBBIE NIETO Consulting Unavailabl e INPATIENT, TELENEUROLOGY Consulting Unavail able NADEEN BARLOW Referring Unavailable NADEEN BARLOW Referring Unavailable NADEEN BARLOW Primary Care Unavailable BANDAR MCMANUS Attending Unavailable BANDAR MCMANUS Attending Unavailable Encounters Encounter Date Encounter Type Care Provider Facility Start: 02-28-2024 End: 02-29-2024 ambulatory BANDAR MCMANUS Not Available Start: 01-27-2024 End: 01-27-2024 ambulatory BANDAR MCMANUS Not Available Start: 01-12-2024 End: 02-12-2024 ambulatory NADEEN García [facility] Start: 01-10-2024 End: 01-12-2024 ambulatory NADEEN García [facility] Start: 01-09-2024 ambulatory [facility] Start: 01-08-2024 End: 01-11-2024 Emergency department patient visit [facility] Start: 01-08-2024 ambulatory [facility] Start: 08-10-2022 Encounter for genera l adult medical examination without abnormal findings DR NADEEN BARLOW [facility] Start: 08-05-2022 End: 08-06-[address] NADEEN BARLOW Facility:[facility] Start: 08-05-2022 End: 08-06-2022 Encounter for general adult medical examination without abnormal findings DR NADEEN BARLOW Facility:[facility] Start: 07-16-2022 End: 07-17-2022 ambulatory ABRAHAM Mittal [facility] Start: 07-07-2022 End: 07-08-[address] NADEEN BARLOW Facility:[facility] Payers Date Payer Category Payer Unknown [id number] 2022 Private Health Insurance [id number] 1965 Unknown [id number] 2.16.84 [id number] 1965 Unknown [id number] 2.16.84 [id number] 1965 Unknown [id number] 2.16.8 [id number] 1965 Unknown [id number] 2.16.8 [id number] 1965 Unknown [id number] 2.16.8 [id number] 1965 Unknown [id number] 2.16.8 [id number] 1965 Unknown [id number] 2.16.8 [id number] 1965 Unknown [id number] 2.16.8 [id number] 1965 Unknown [id number] 2.16.8 [id number] 1965 Unknown [id number] 2.16.84 [id number] 1965 Unknown [id number] 2.16.84 [id number] 1959 Unknown [id number] Problems Active Problems Problem Classification Problem Date [...] [Pain in right knee] Onset: 07-16-2022 Episodic Procedures Date Procedure Procedure Detail Performing Clinician Start: 08-05-[address] PEYMAN BARLOW Comment on above: Performed By: #### P SASC #### Laboratory [address] [place] [address] Dr. Arsh Nielsen Results Test Name Value Interpretation Reference Range Facility Refillon 05-10-2023 Refill [id number] Hans Montenegro 1965 M Date Provider Department Center 05/10/2023 ABRAHAM LARA MP ORTHO MPORTHO Family History Family history unknown: Yes Reason for Visit and Comments: Med Refill [323830] Normal [facility] INSULINon 08-07-2022 Insulin 9.1 uIU/mL Normal 2.6-24.9 The Comment on above: Performed By: #### I NSULIN #### Laboratory [address] [place] [address] Dr. Arsh Nielsen CBC AUTO DIFFon 08-05-2022 BASO # 0.1 103/ul Normal 0.0-0.1 [facility] Comment on above: Performed By: #### C BC #### Laboratory [address] [place] [address] Dr. Arsh Nielsen Basophils/100 WBC (Bld) 1.7 % Normal 0.2-2.0 [facility] Comment on above: Performed By: #### C BC #### Laboratory [address] [place] [address] Dr. Arsh Nielsen EO # 0.2 103/ul Normal 0.0-0.7 [facility] Comment on above: Performed By: #### C BC #### Laboratory [address] [place] [address] Dr. Arsh Nielsen Eosinophils/100 WBC (Bld) 3.5 % Normal 0.9-7.0 [facility] Comment on above: Performed By: #### C BC #### Laboratory [address] [place] [address] Dr. Arsh Nielsen Erythrocyte distribution width (RBC) [Ratio] 12.9 % Normal 11.0-15.0 [facility] Comment on above: Performed By: #### C BC #### Laboratory [address] [place] [address] Dr. Arsh Nielsen Hematocrit (Bld) [Volume fraction] 43.5 % Normal 42.0-54.0 [facility] Comment on above: Performed By: #### C BC #### Laboratory [address] [place] [address] Dr. Arsh Nielsen Hemoglobin (Bld) [Mass/Vol] 14.8 g/dL Normal 14.0-18.0 [facility] Comment on above: Performed By: #### C BC #### Laboratory [address] [place] [address] Dr. Arsh Nielsen IG # 0.01 10e3/ul Normal 0.00-0.03 [facility] Comment on above: Performed By: #### C BC #### Laboratory [address] [place] [address] Dr. Arsh Nielsen IG % 0.2 % Normal 0.0-0.5 [facility] Comment on above: Performed By: #### C BC #### Laboratory [address] [place] [address] Dr. Arsh Nielsen LYMPH # 1.4 103/ul Normal 1.2-3.8 [facility] Comment on above: Performed By: #### C BC #### Laboratory [address] [place] [address] Dr. Arsh Nielsen Lymphocytes/100 WBC (Bld) 31.2 % Normal 20.5-60.0 [facility] Comment on above: Performed By: #### C BC #### Laboratory [address] [place] [address] Dr. Arsh Nielsen MANUAL DIFF REQ NO Normal [facility] Comment on above: Performed By: #### C BC #### Laboratory [address] [place] [address] Dr. Arsh Nielsen MCH (RBC) [Entitic mass] 30.9 pg Normal 25.9-34.0 [facility] Comment on above: Performed By: #### C BC #### Laboratory [address] [place] [address] Dr. Arsh Nielsen MCHC (RBC) [Mass/Vol] 34.0 g/dL Normal 29.9-35.2 [facility] Comment on above: Performed By: #### C BC #### Laboratory [address] [place] [address] Dr. Arsh Nielsen MCV (RBC) [Entitic vol] 90.8 fL Normal 80.0-94.0 [facility] Comment on above: Performed By: #### C BC #### Laboratory [address] [place] [address] Dr. Arsh Nielsen MONO # 0.4 103/ul Normal 0.3-0.8 [facility] Comment on above: Performed By: #### C BC #### Laboratory [address] [place] [address] Dr. Arsh Nielsen Monocytes/100 WBC (Bld) 8.0 % Normal 1.7-12.0 [facility] Comment on above: Performed By: #### C BC #### Laboratory [address] [address] [address] Arsh Nielsen NEUT # 2.6 103/ul Normal 1.4-6.5 [facility] Comment on above: Performed By: #### C BC #### Laboratory [address] [address] [address] Arsh Nielsen Neutrophils/100 WBC (Bld) 55.4 % Normal 43.0-75.0 [facility] Comment on above: Performed By: #### C BC #### Laboratory [address] [place] [address] Dr. Arsh Nielsen Platelet mean volume (Bld) [Entitic vol] 9.3 fL Critically low 9.5-13.5 [facility] Comment on above: Performed By: #### C BC #### Laboratory [address] [place] [address] Dr. Arsh Nielsen PLT 248 103/ul Normal 150-450 The Comment on above: Performed By: #### C BC #### Laboratory [address] [place] [address] Dr. Arsh Nielsen RBC 4.79 106/ul Normal 4.70-6.10 [facility] Comment on above: Performed By: #### C BC #### Laboratory [address] [place] [address] Dr. Arsh Nielsen WBC 4.6 103/ul Normal 4.0-11.0 [facility] Comment on above: Performed By: #### C BC #### Laboratory [address] [place] [address] Dr. Arsh Nielsen GLYCOHEMOGLOBIN A1Con 2021 ADA RECOMMENDATION SEE BELOW Normal [facility] Comment on above: Result Comment: ADA RECOMMENDED LIMIT 4.0 - 6.0 ADA THERAPEUTIC TARGET < 7.0 ACTION SUGGESTED > 7.0 Performed By: #### A 1C #### Laboratory [address] [place] [address] Dr. Arsh Nielsen Glucose [Mass/Vol] 108 mg/dL Normal [facility] Comment on above: Performed By: #### A 1C #### Laboratory [address] [address] [address] Arsh Nielsen HbA1c (Bld) [Mass fraction] 5.4 % Normal 4.5-6.2 [facility] Comment on above: Performed By: #### A 1C #### Laboratory [address] [place] [address] Dr. Arsh Nielsen LIPID PROFILEon 08-05-2022 CHOL-HDL RATIO NORM SEE BELOW Normal [facility] Comment on above: Result Comment: 3.3 - 4.4 LOW RISK 4.4 - 7.1 AVERAGE RISK 7.1 - 11.0 MODERATE RISK >11.0 HIGH RISK Performed By: #### C MP, LIPID #### Laboratory [address] [place] [address] Dr. Arsh Nielsen Cholesterol [Mass/Vol] 157 mg/dL Normal <=200 [facility] Comment on above: Performed By: #### C MP, LIPID #### Laboratory [address] [place] [address] Dr. Arsh Nielsen Cholesterol in HDL [Mass/Vol] 35 mg/dL Critically low 40-60 [facility] Comment on above: Performed By: #### C MP, LIPID #### Laboratory [address] [place] [address] Dr. Arsh Nielsen Cholesterol in LDL [Mass/Vol] 98.8 mg/dL Normal [facility] Comment on above: Performed By: #### C MP, LIPID #### Laboratory [address] [address] [address] Arsh Nielsen Cholesterol.total/Cho lesterol in HDL [Mass ratio] 4.5 {ratio} Normal [facility] Comment on above: Performed By: #### C MP, LIPID #### Laboratory [address] [place] [address] Dr. Arsh Nielsen HDL NORMAL > or = 60 mg/dl - LOW CARDIOVASCULAR RISK <40 mg/dl - HIGH CARDIOVASCULAR RISK Normal [facility] Comment on above: Performed By: #### C MP, LIPID #### Laboratory [address] [address] [address] Arsh Nielsen LDL CALC NORMAL SEE BELOW Normal [facility] Comment on above: Result Comment: <100 mg/dl OPTIMAL 100 - 129 mg/dl NEAR OR ABOVE OPTIMAL 130 - 159 mg/dl BORDERLINE HIGH 160 - 189 mg/dl HIGH >190 mg/dl VERY HIGH Performed By: #### C MP, LIPID #### Laboratory [address] [address] [address] Arsh Nielsen Triglyceride [Mass/Vol] 116 mg/dL Normal <=150 [facility] Comment on above: Performed By: #### C MP, LIPID #### Laboratory [address] [address] [address] Arsh Nielsen VLDL CALC 23.2 mg/dL Normal [facility] Comment on above: Performed By: #### C MP, LIPID #### Laboratory [address] [place] [address] Dr. Arsh Nielsen PROF 14(COMP METB)on 022 Albumin [Mass/Vol] 3.7 g/dL Normal 3.4-5.0 [facility] Comment on above: Performed By: #### C MP, LIPID #### Laboratory [address] [place] [address] Dr. Arsh Nielsen Albumin/Globulin [Mass ratio] 1.1 {ratio} Normal [facility] Comment on above: Performed By: #### C MP, LIPID #### Laboratory [address] [place] [address] Dr. Arsh Nielsen ALP [Catalytic activity/Vol] 58 U/L Normal 46-116 [facility] Comment on above: Performed By: #### C MP, LIPID #### Laboratory [address] [address] [address] Arsh Nielsen ALT [Catalytic activity/Vol] 18 U/L Normal 16-63 [facility] Comment on above: Performed By: #### C MP, LIPID #### Laboratory [address] [place] [address] Dr. Arsh Nielsen Anion gap [Moles/Vol] 9.5 mmol/L Normal [facility] Comment on above: Performed By: #### C MP, LIPID #### Laboratory [address] [address] [address] Arsh Nielsen AST [Catalytic activity/Vol] 16 U/L Normal 15-37 [facility] Comment on above: Performed By: #### C MP, LIPID #### Laboratory [address] [address] [address] Arsh Nielsen Bilirubin [Mass/Vol] 0.6 mg/dL Normal 0.2-1.0 [facility] Comment on above: Performed By: #### C MP, LIPID #### Laboratory [address] [address] [address] Arsh Nielsen Calcium [Mass/Vol] 9.1 mg/dL Normal 8.5-10.1 [facility] Comment on above: Performed By: #### C MP, LIPID #### Laboratory [address] [address] [address] Arsh Nielsen Chloride [Moles/Vol] 107 mmol/L Normal 98-107 [facility] Comment on above: Performed By: #### C MP, LIPID #### Laboratory [address] [address] [address] Arsh Nielsen CO2 [Moles/Vol] 31.2 mmol/L Normal 21.0-32.0 [facility] Comment on above: Performed By: #### C MP, LIPID #### Laboratory [address] [address] [address] Arsh Nielsen Creatinine [Mass/Vol] 0.96 mg/dL Normal 0.70-1.30 [facility] Comment on above: Performed By: #### C MP, LIPID #### Laboratory [address] [address] [address] Arsh Nielsen EGFR-AF CITIZEN [place] >60 Normal >=60 [facility] Comment on above: Performed By: #### C MP, LIPID #### Laboratory [address] [address] [address] Arsh Nielsen EGFR-NON AF CITIZEN OF [place] >60 Normal >=60 [facility] Comment on above: Performed By: #### C MP, LIPID #### Laboratory [address] [place] [address] Dr. Arsh Nielsen Globulin (S) [Mass/Vol] 3.3 g/dL Normal [facility] Comment on above: Performed By: #### C MP, LIPID #### Laboratory [address] [address] [address] Arsh Nielsen Glucose [Mass/Vol] 100 mg/dL Normal 74-106 [facility] Comment on above: Performed By: #### C MP, LIPID #### Laboratory [address] [place] [address] Dr. Arsh Nielsen Potassium [Moles/Vol] 4.7 mmol/L Normal 3.5-5.1 [facility] Comment on above: Performed By: #### C MP, LIPID #### Laboratory [address] [place] [address] Dr. Arsh Nielsen Protein [Mass/Vol] 7.0 g/dL Normal 6.4-8.2 [facility] Comment on above: Performed By: #### C MP, LIPID #### Laboratory [address] [place] [address] Dr. Arsh Nielsen Sodium [Moles/Vol] 143 mmol/L Normal 136-145 [facility] Comment on above: Performed By: #### C MP, LIPID #### Laboratory [address] [place] [address] Dr. Arsh Nielsen Urea nitrogen [Mass/Vol] 14.0 mg/dL Normal 7.0-18.0 [facility] Comment on above: Performed By: #### C MP, LIPID #### Laboratory [address] [place] [address] Dr. Arsh Nielsen Urea nitrogen/Creatinine [Mass ratio] 14.6 mg/mg Normal [facility] Comment on above: Performed By: #### C MP, LIPID #### Laboratory [address] [place] [address] Dr. Arsh Nielsen Office Visiton 07-16-2022 Follow-up visit [id number] Hans Montenegro 1965 M Date Provider Department Center 07/16/2022 ABRAHAM LARA MP ORTHO MPORTHO Family History Family history unknown: Yes Level of Service:23134 [place] OFFICE/OUTPATIENT [facility] 30-44 MINUTES Reason for Visit and Comments: Pain [136] Normal [facility] US SHELDON DOP LEG LTon 07-07-20 22 US SHELDON DOP LEG LT EXAMINATION: US [...] left leg *Exam performed in accordance with [facility] practice guidelines- Peripheral venous ultrasound, December 07, 2009. Electronically authenticated by: JACE SHARMA Date: 2022-07-07 12:15 Normal [facility] Outside Colonoscopyon 2019 Outside Colonoscopy [id number] #1.00CD:127 Normal [facility] Lab Reportson 08-12-2020 Lab Reports [id number] #1.00CD:127 Normal [facility] Provider Letter FTon 07-26 Provider Letter [facility] Nadeen Barlow, [facility] [facility] [place] [address] [place] [address] Re: HANS MONTENEGRO Date of : 1965 Thank you for your referral of Hans Montenegro who was seen on consultation on July 17, 2020, for screening colonoscopy. I have enclosed my consultation notes for your review. A colonoscopy is planned. Sincerely, Paulie Villalba MD General Surgery [facility] Consent for Procedure/Surger yon 07-22-2020 Consent for Procedure/Surgery [id number] #1.00CD:127 Normal [facility] Ambulatory Clinical Summaryo n 07-17-2020 Ambulatory Clinical Summary {[id number]}CD:[id number] Normal [facility] Patient Educationon 07-17-20 Patient Education Colonoscopy A colonoscopy is an [...] ? Medicines taken, including vitamins, herbs, eyedrops, dkwl-cio-zvurkub medicines, and creams. ? Use of steroids [...] medicines have worn off. ? Only take lktz-cic-wgqzhhp or prescription medicines for pain, discomfort, or [...] Document Reviewed: 04/11/2009 ExitCare? Patient Information ?2013 [employer]. Normal [facility] Physician Referralon 020 Physician Referral [id number]# 1.00CD:127 Normal [facility] Progress note 07-16-2022 Note Date & Type [...] report and order an MRI if indicated [facility] Clinical Note 07-17-2020 Note Date & Type Note Facility 07-17-2020 Note Chief Complaint referral for screening colonoscopy [facility] Staff 55 year old male presents on [...] Tab, 12.5 mg= 1 tab(s), Oral, BID [place]-3 Fish Oil, 2 cap(s), Oral, Daily Allergies No Known Medication Allergies Social History Alcohol - Denies Alcohol Use, 07/17/2020 Substance Abuse - Denies Substance Abuse, 07/17/2020 Tobacco Never (less than 100 in lifetime) Tobacco Use:. Never Smokeless Tobacco Use:. Cigarettes, 07/17/2020 Family History Primary malignant neoplasm of rectum: Father. Immunizations Vaccine Date Status influenza virus vaccine, inactivated 06/15/2019 Recorded [facility] Comment on above: Result Comment: Elec [...] section and content) DATE CREATED AUTHOR 01/26/2021 [facility] DATE CREATED AUTHOR AUTHOR'S ORGANIZ ATION 08/10/2022 [facility] DATE CREATED AUTHOR AUTHOR'S ORGANIZ ATION 05/10/2023 [facility] DATE CREATED AUTHOR AUTHOR'S ORGANIZ ATION 01/14/2024 [facility] DATE CREATED AUTHOR AUTHOR'S ORGANIZ ATION 02/13/2024 [facility] DATE CREATED AUTHOR AUTHOR'S YULIYA CANTRELL 03/01/2024 [facility] EPIC FOR RECORDS PERTAINING TO [...] BE BASED ON THE PRIMARY CLINICAL RECORDS. [facility] [employer] [facility]. provides no warranty or guarantee of the accuracy or completeness of information in this document.
[2024-03-07 13:40] LABS: Troponin I High Sensitivity 31.9 pg/mL (4.0-76.1)
[2024-03-07 13:48] LABS: Free T3 1.88 pg/mL (2.18-3.98); Magnesium 1.9 mg/dL (1.8-2.4); Thyroid Stimulating Hormone 1.379 uIU/mL (0.358-3.740)
[2024-03-07 16:13] LABS: Troponin I High Sensitivity 24.4 pg/mL (4.0-76.1)
--- NOTE | 2024-03-07 18:17 | PC.NURSE ---
dr zhou and cardiology business performance specialist completed consult via phone
--- NOTE | 2024-03-07 18:28 | P.CACN_ITS ---
<Statement entered by JOSE M FELICIANO - 03/09/24 17:31> This documentation has been reviewed and approved. History of Present Illness History of Present Illness Consult date: 03/07/24 Requesting physician: Francisco Barlow Chief complaint: CHEST PAIN / ELEVATED TOPONIN Narrative: Patient is a 58 y/o M with PMHx of vertigo and HTN who presented with c/o near syncope while standing at work. He notes that he has been recently having issues with controlling his HTN and vertigo and he has had various medication changes. When his BP was checked, it was low, 103 systolic. He also had accompanied weakness and generalized chest pressure. He does not recall the duration of the chest pressure. Upon arrival to the ER he had felt back to normal. His HStroponin was negative x3. His BP has been variable, 150-118/90-60s. ECHO was ordered but not completed due to machine malfunction. He has had no further c/o chest pressure. He denies dypsnea, orthopnea, PND, palpitations, syncope. He has some RLE edema that has been ongoing since last year. His NTproBNP was 116. Orthostatic BP was checked this evening, they were negative. He denies any known significant family hx of heart disease. He does have some visual disturbance when walking secondary to his vertigo sx's, he describes it as bouncing . Review of Systems ROS Status of ROS 10 or more systems reviewed and unremark able except as noted in history and below Cardiovascular Reports: chest pain (chest pressure - resolved) Neurological Reports: vertigo and other (near syncope) [facility] Medical History (Updated 03/07/24 @ 13:52 by Jo-Ann Vicente DO) Nausea and vomiting ?R11.2 - Nausea with vomiting, unspecified (ICD-10) Vertigo ?R42 - Dizziness and giddiness (ICD-10) Hypertension ?I10 - Essential (primary) hypertension (ICD-10) Surgical History (Updated 01/07/24 @ 15:20 by Rose Mcclellan) History of appendectomy ?Z90.49 - Acquired absence of other specified parts of digestive tract (ICD- 10) H/O rotator cuff surgery ?Z98.890 - Other specified postprocedural states (ICD-10) Family History (Updated 01/07/24 @ 15:22 by Rose Mcclellan) Father Family history of cancer Family history of hypertension Aunt Family history of cancer Grandfather No problems noted. Grandmother Family history of cancer Family history of diabetes mellitus Family history of stroke Mother Family history of stroke Social History (Updated 01/07/24 @ 15:23 by Rose Mcclellan) Within the past year, how often did you have six or more drinks on one occasion: never Smoking status: Never smoker Non-prescribed substance use: denies use Previous occupational history: [employer] Known occupational exposures/hazards: Yes Highest level of school completed/degree received: Associate degree: academic program Are you now , , , , never or living with a partner: Little interest or pleasure in doing things: not at all Feeling down, depressed, or hopeless: not at all Feel stressed/tense/nervous/anxious/difficulty sleeping: not at all Do you think of yourself as: straight/heterosexual Gender Identity: male Meds Home Medications and Allergies Home Medications ?Medication ?Instructions ?Recorded ?Confirmed ?Type aspirin 81 mg tablet,delayed 81 mg PO QD #30 tabs 01/08/24 03/07/24 Rx release carvedilol 25 mg tablet 25 mg PO BID #60 tabs 01/08/24 03/07/24 Rx hydrochlorothiazide 12.5 mg tablet 12.5 mg PO DAILY 03/07/24 03/07/24 History hydroxyzine HCl 10 mg tablet 10 mg PO .QHS 03/07/24 03/07/24 History Allergies Allergy/AdvReac Type Severity Reaction Status Date / Time No Known Drug Allergies Allergy Verified 03/07/24 09:35 Exam Constitutional Vital Signs, click to edit/add: Last Vital Signs Temp 97.9 F 03/07/24 14:01 Pulse 70 03/07/24 18:16 Resp 16 03/07/24 17:40 BP 168/118 H 03/07/24 18:16 Pulse Ox 95 03/07/24 18:16 O2 Del Method Room Air 03/07/24 18:16 Documenting provider has reviewed patient's vital signs: yes Common normals: no apparent distress, oriented x3 and alert HENMT Common normals: normocephalic and head/scalp atraumatic Nose: external nose normal Eye Common normals: EOMs intact bilaterally and conjunctivae normal Neck & C-Spine Common normals: full ROM and no JVD Respiratory Common normals: normal respiratory effort, no use of accessory muscles and clear to auscultation bilaterally Cardio Common normals: no JVD, regular rate, regular rhythm, S1 normal heart sound, S2 normal heart sound, no gallops, no clicks, no murmurs, no rub and peripheral pulses 2+ throughout GI Common normals: Normal to inspection, nondistended, normoactive bowel sounds present Extremity Common normals: full ROM General: edema (+1 RLE pitting edema ) Neuro Common normals: oriented x3, moves all extremities and no focal motor deficits Psych Common normals: mental status grossly normal, thought process normal and cooperative Results Labs and Meds Lab results: Cardiac Enzymes 03/07/24 Range/Units 09:30 AST 7 L (15-37) U/L CBC 03/07/24 Range/Units 09:30 WBC 4.6 (4.0-11.0) 10^3/uL RBC 4.76 (4.70-6.10) 10^6/uL Hgb 14.5 (14.0-18.0) g/dL Hct 43.1 (42.0-54.0) % Plt Count 214 (150-450) 10^3/uL Neut # (Auto) 3.1 (1.4-6.5) 10^3/uL Lymph # (Auto) 1.2 (1.2-3.8) 10^3/uL [place]arton # (Auto) 0.1 L (0.3-0.8) 10^3/uL Eos # (Auto) 0.1 (0.0-0.7) 10^3/uL Baso # (Auto) 0.0 (0.0-0.1) 10^3/uL Comprehensive Metabolic Panel 03/07/24 Range/Units 09:30 Sodium 140 (136-145) mmol/L Potassium 4.3 (3.5-5.1) mmol/L Chloride 107 (98-107) mmol/L Carbon Dioxide 23.3 (21.0-32.0) mmol/L BUN 23.0 H (7.0-18.0) mg/dL Creatinine 1.07 (0.70-1.30) mg/dL Glucose 115 H (74-106) mg/dL Calcium 8.1 L (8.5-10.1) mg/dL AST 7 L (15-37) U/L ALT 19 (16-63) U/L Alkaline Phosphatase 54 (46-116) U/L Total Protein 6.2 L (6.4-8.2) g/dL Albumin 3.1 L (3.4-5.0) g/dL Intake and Output 03/07/24 03/07/24 03/07/24 07:59 15:59 23:59 Intake Total 740 / 740 Output Total 400 / 400 Balance 740 / 340 -400 / 340 Intake: Oral 240 / 240 IV 500 / 500 0.9 % Sodium Chloride 500 ml @ 500 / 500 500 mls/hr IV .Q1H ONE Rx#: [id number] Output: Urine 400 / 400 Other: Weight 118.019 kg Patient Weight 03/08/24 07:59 Weight 118.019 kg Imaging and Cardiology ECG results: image reviewed (NSR, no ischemic changes) Assessment and Plan Assessment and Plan (1) Chest pain: (2) Hypertension: (3) Near syncope: Plan #Near syncope #Labile BP #HTN -Consider orthostatic hypotension as differential diagnosis. Orthostatic BP was negative today. -Advised for patient to wear compression stockings while awake. Ensure staying hydrated, drink 2L of fluid at least a day. -Recommend an ECHO. -Continue carvedilol 25mg BID. Consider adding CCB or ACEI/ARB if BP remains elevated and no further episodes with low BP. #Chest pressure -His troponin levels were negative x3 -Recommend a stress test to rule out ischemia - this can be done as an outpatient. Discussed plan with patient/spouse, primary RN, and Dr. Barlow. Thank you for the consult. Please let us know if any further questions or concerns. Deya Dickerson APRN-DESKTOP SUPPORT TECHNICIAN
--- NOTE | 2024-03-08 14:28 | CM.DCFOLLOWU ---
Person spoke with: Hans How are you feeling? better than yesterday. How is your pain? None Did you understand your discharge instructions? yes Do you have any questions about your discharge instructions? No, just awaiting outpatient testing to be scheduled. Were you given any prescriptions at discharge? no Were you able to get your prescriptions filled?na Do you understand how to take your medications as ordered? yes Do you have any questions about your follow up appointment and do you plan to keep your follow up appointment? Dr. Barlow's office to call with outpatient testing dates. Is there anything else that you would like to discuss? Questions/Comments/Concerns/Other:
== END 2024-03-07 18:38 | disposition home or self-care (01) ==
LOC: ER 12:25 → MS 12:51
PROVIDERS: Admitting Provider Family Medicine; Emergency Provider Emergency Medicine; PCP Family Medicine; Visit Provider Family Medicine
DX: R07.89 Other chest pain (principal); R55 Syncope and collapse; I10 Essential (primary) hypertension; R00.1 Bradycardia, unspecified; R06.03 Acute respiratory distress; I95.9 Hypotension, unspecified; R60.9 Edema, unspecified; F41.1 Generalized anxiety disorder
CPT/HCPCS: 36415; 71045; 80053; 83735; 83880; 84436; 84443; 84481; 84484; 85025; 93005; 94761; 99285; G0378

== ENCOUNTER 2024-03-30 07:15 | Outpatient (OUT) | payer OTHER, SELFPAY ==
--- NOTE | 2024-03-30 | PCN_ITS ---
CARDIAC STRESS TEST Requesting Physician: Procedure Date: 03/30/2024 INDICATION: Chest pressure. METHODS: After risks, benefits, and alternatives were explained, written informed consent was obtained. The patient was brought to the Stress Lab in a resting and fasting state. He was connected to the appropriate hemodynamic and electrocardiographic monitoring. He underwent a treadmill exercise stress test. Technetium Cardiolite was administered for rest and stress imaging. He was transported to the Radiology Department for imaging following the test. He tolerated the procedure well. There were no complications. STRESS TEST INFORMATION: The patient underwent a Robert protocol for exercise. He exercised for a total of 7 minutes and 18 seconds, achieving 10.10 METS and stage 3 of the Robert protocol. Resting blood pressure was 170/98, with a peak blood pressure off 192/88. Resting heart rate was 54, increasing to a maximum of 137, which is 85% of maximum predicted heart rate. ELECTROCARDIOGRAPHY: Rest EKG: Sinus bradycardia, otherwise normal EKG. During exercise and recovery: No specific upsloping ST depressions are seen. Premature atrial contractions are noted. No significant arrhythmia seen. FINAL IMPRESSIONS: 1. No ischemic EKG changes seen on treadmill Cardiolite stress test. 2. Resting hypertension with an appropriate heart rate and blood pressure response to exercise. 3. Laureano treadmill score is 7.2; this correlates with a 0.3-0.9% estimated one year mortality. Risk category is low risk. Angiography is usually not indicated. 4. Nuclear images are to be read, interpreted, and reported in a separate dictation. [facility]
--- NOTE | 2024-03-30 07:00 | NM_ITS ---
Patient Name: MARIA ALEJANDRA WILCOX MR#: [id number] : 1965 Exam Date: 03/30/2024 Ordering Doctor: DR Francisco Barlow . RADIOLOGY REPORT PROCEDURE: NM АЛЕКСАНДР PERF SPECT REST STR COMPARISON: None. INDICATIONS: CHEST PRESSURE, HYPERTENSION, VERTIGO TECHNIQUE: Exam Description: Stress/Rest one day protocol gated SPECT Rest Imagin.5 mCi Tc-99m Cardiolite IV on 03/30/2024 Stress Imaging 30.8 mCi Tc-99m Cardiolite IV on 03/30/2024 Exercise Protocol: Robert Heart Rate (bpm): Rest: 57 Max: 137 PMHR: 85 Blood Pressure: Rest: 160/98 Max: 192/88 Exercise Time: Minutes: 7 Seconds: 18 Stage Reached: Stage: 3 Mets 10.1 Symptoms: Rest and peak stress ECG findings were pending and the exercise portion of the study was pending per attending physician Dr. CALDERÓN . For more details please see separate cardiac stress test report. FINDINGS: QUALITY OF STUDY: Excellent. PERFUSION DEFECT: None. LOCATION: N/A SIZE: N/A. SEVERITY: N/A. TYPE: N/A. WALL MOTION: Normal. LV SIZE: Normal. 124 mL. TID / TCD: None; 1.0 LVEF: Normal. Calculated EF 66%. SUMMARY: Myocardial perfusion imaging study CONCLUSION: 1. Borderline left ventriculomegaly (124 mL). Otherwise normal nuclear medicine myocardial perfusion scan. Dictated by: Ren Tobin M.D. on 03/30/2024 at 14:39 Approved by: Ren Tobin M.D. on 03/30/2024 at 14:44
--- OUTSIDE RECORDS SUMMARY | 2024-03-30 07:17 | XMS_ITS | CCD ---
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 Name Role Phone DR NADEEN BARLOW Admitting Unavailable YEN, DR SENIOR Attending Unavailable YEN, DR SENIOR Primary Care Unavailable YEN, DR SENIOR Consulting Unavailable WEST, DR JACE Wasserman Consulting Unavailable YEN, DR SENIOR Admitting Unavailable JOHNNYY, DR SENIOR Attending Unavailable JOHNNYY, DR SENIOR Primary Care Unavailable YEN, DR SENIOR Consulting Unavailable ABRAHAM MUJICA Referring Unavailable ABRAHAM MUJICA Attending Unavailable ROBBIE NIETO Consulting Unavailabl e INPATIENT, TELENEUROLOGY Consulting Unavail able NADEEN BARLOW Referring Unavailable NADEEN BARLOW Referring Unavailable NADEEN BARLOW Primary Care Unavailable BANDAR MCMANUS Attending Unavailable BANDAR MCMANUS Attending Unavailable Nadeen Barlow Primary Care Physician Nadeen Barlow Admitting Unavailable Kadeem Montenegro Consulting UnavailNadeen Newell Referring Unavailable Nadeen Barlow Attending Unavailable Kadeem Montenegro Consulting UnavailKadeem Lord Consulting Unavaila candis Allergies Allergy Classification Reported Allergen(s) Allergy Type Date of Onset Reaction(s) Facility (1 source) No Known Medication Allergies; Translations: [No Known Medication Allergies] Propensity to adverse reactions (disorder) [facility] Repository Medications Current Medications Medication Drug Class(es) Dates Sig (Normalized) Sig (Original) carvedilol 12.5 mg oral tablet (1 source) alpha-Adrenergic Markie, beta-Adrenergic Markie Start: 07-16-2020 take 1 tablet by mouth twice daily Coreg 12.5 mg Tab 12.5 mg = 1 tab(s), Oral, BID, Refills(s) 0 Start Date: 07/16/20 Status: Ordered Fish Oils (1 source) Start: 07-17-2020 take 2 capsules by mouth once daily [place]-3 Fish Oil 2 cap(s), Oral, Daily, Refill(s) 0 Start Date: 07/17/20 Status: Ordered Problems Active Problems Problem Classification Problem Date Documented Da te Episodic/Chronic Allergic reactions (1 source) Eczema 07-16-2020 Episodic Conditions associated with dizziness or vertigo (1 source) Dizziness and giddiness; Translations: [Dizziness and giddiness] Onset: 01-10-2024 Episodic Conditions associated with dizziness or vertigo (1 source) Conditions associated with dizziness or vertigo Onset: 01-08-2024 Essential hypertension (1 source) Hypertensive disorder 08-07-2019 Chronic Headache; including migraine (1 source) Migraine 07-16-2020 Chronic Osteoarthritis (2 sources) Unilateral primary osteoarthritis, left knee; Translations: [Unilateral primary osteoarthritis, left knee] Onset: 07-16-2022 Chronic Other gastrointestinal disorders (1 source) H/O: colitis 07-16-2020 Episodic Other non-traumatic joint disorders (4 sources) Pain in left knee; Translations: [PAIN IN LEFT KNEE] Onset: 07-07-2022 Episodic Other nutritional; endocrine; and metabolic disorders (1 source) Body mass index 30+ - obesity 07-17-2020 Chronic Other screening for suspected conditions (not mental disorders or infectious disease) (1 source) Encounter for screening for malignant neoplasm of prostate; Translations: [ENC SCREEN MALIG NEOPLASM PROSTATE] Onset: 08-10-2022 Episodic Residual codes; unclassified (1 source) Sleep apnea 08-07-2019 Chronic Residual codes; unclassified (1 source) Pain, unspecified; Translations: [Pain, unspecified] Onset: 01-08-2024 Episodic Residual codes; unclassified (1 source) Family history of cancer of colon 07-17-2020 Episodic Residual codes; unclassified (1 source) Insomnia 07-16-2020 Episodic Spondylosis; intervertebral disc disorders; other back problems (1 source) Cervical spondylosis 07-16-2020 Chronic Past or Other Problems Problem Classification Problem Date Documented Da te Episodic/Chronic Other non-traumatic joint disorders (2 sources) Pain in right knee; Translations: [Pain in right knee] Onset: 07-16-2022 Episodic Results Test Name Value Interpretation Reference Range Facility Refillon 05-10-2023 Refill [id number] Hans Montenegro 1965 M Date Provider Department Center 05/10/2023 ABRAHAM LARA MP [facility] Family History Family history unknown: Yes Reason for Visit and Comments: Med Refill [[id number]] Normal [facility] INSULINon 08-07-2022 Insulin 9.1 uIU/mL Normal 2.6-24.9 [facility] Comment on above: Performed By: #### I NSULIN #### [facility] [address] [place] [address] Dr. Arsh Nielsen CBC AUTO DIFFon 08-05-2022 BASO # 0.1 103/ul Normal 0.0-0.1 [facility] Comment on above: Performed By: #### C BC #### [facility] [address] [place] [address] Dr. Arsh Nielsen Basophils/100 WBC (Bld) 1.7 % Normal 0.2-2.0 [facility] Comment on above: Performed By: #### C BC #### [facility] [address] [place] [address] Dr. Arsh Nielsen EO # 0.2 103/ul Normal 0.0-0.7 [facility] Comment on above: Performed By: #### C BC #### [facility] [address] [place] [address] Dr. Arsh Nielsen Eosinophils/100 WBC (Bld) 3.5 % Normal 0.9-7.0 [facility] Comment on above: Performed By: #### C BC #### [facility] [address] [place] [address] Dr. Arsh Nielsen Erythrocyte distribution width (RBC) [Ratio] 12.9 % Normal 11.0-15.0 [facility] Comment on above: Performed By: #### C BC #### [facility] [address] [place] [address] Dr. Arsh Nielsen Hematocrit (Bld) [Volume fraction] 43.5 % Normal 42.0-54.0 [facility] Comment on above: Performed By: #### C BC #### [facility] [address] [place] [address] Dr. Arsh Nielsen Hemoglobin (Bld) [Mass/Vol] 14.8 g/dL Normal 14.0-18.0 [facility] Comment on above: Performed By: #### C BC #### [facility] [address] [place] [address] Dr. Arsh Nielsen IG # 0.01 10e3/ul Normal 0.00-0.03 [facility] Comment on above: Performed By: #### C BC #### [facility] [address] [place] [address] Dr. Arsh Nielsen IG % 0.2 % Normal 0.0-0.5 [facility] Comment on above: Performed By: #### C BC #### [facility] [address] [place] [address] Dr. Arsh Nielsen LYMPH # 1.4 103/ul Normal 1.2-3.8 [facility] Comment on above: Performed By: #### C BC #### [facility] [address] [place] [address] Dr. Arsh Nielsen Lymphocytes/100 WBC (Bld) 31.2 % Normal 20.5-60.0 [facility] Comment on above: Performed By: #### C BC #### [facility] [address] [place] [address] Dr. Arsh Nielsen MANUAL DIFF REQ NO Normal [facility] Comment on above: Performed By: #### C BC #### [facility] [address] [place] [address] Dr. Arsh Nielsen MCH (RBC) [Entitic mass] 30.9 pg Normal 25.9-34.0 [facility] Comment on above: Performed By: #### C BC #### [facility] [address] [place] [address] Dr. Arsh Nielsen MCHC (RBC) [Mass/Vol] 34.0 g/dL Normal 29.9-35.2 [facility] Comment on above: Performed By: #### C BC #### [facility] [address] [place] [address] Dr. Arsh Nielsen MCV (RBC) [Entitic vol] 90.8 fL Normal 80.0-94.0 [facility] Comment on above: Performed By: #### C BC #### [facility] [address] [address] [address] Arsh Nielsen MONO # 0.4 103/ul Normal 0.3-0.8 [facility] Comment on above: Performed By: #### C BC #### [facility] [address] [address] [address] Arsh Nielsen Monocytes/100 WBC (Bld) 8.0 % Normal 1.7-12.0 [facility] Comment on above: Performed By: #### C BC #### [facility] [address] [address] [address] Arsh Nielsen NEUT # 2.6 103/ul Normal 1.4-6.5 [facility] Comment on above: Performed By: #### C BC #### [facility] [address] [place] [address] Dr. Arsh Nielsen Neutrophils/100 WBC (Bld) 55.4 % Normal 43.0-75.0 [facility] Comment on above: Performed By: #### C BC #### [facility] [address] [place] [address] Dr. Arsh Nielsen Platelet mean volume (Bld) [Entitic vol] 9.3 fL Critically low 9.5-13.5 [facility] Comment on above: Performed By: #### C BC #### [facility] [address] [place] [address] Dr. Arsh Nielsen PLT 248 103/ul Normal 150-450 [facility] Comment on above: Performed By: #### C BC #### [facility] [address] [place] [address] Dr. Arsh Nielsen RBC 4.79 106/ul Normal 4.70-6.10 [facility] Comment on above: Performed By: #### C BC #### [facility] [address] [place] [address] Dr. Arsh Nielsen WBC 4.6 103/ul Normal 4.0-11.0 [facility] Comment on above: Performed By: #### C BC #### [facility] [address] [address] [address] Arsh Nielsen GLYCOHEMOGLOBIN A1Con 2021 ADA RECOMMENDATION SEE BELOW Normal [facility] Comment on above: Result Comment: ADA RECOMMENDED LIMIT 4.0 - 6.0 ADA THERAPEUTIC TARGET < 7.0 ACTION SUGGESTED > 7.0 Performed By: #### A 1C #### [facility] [address] [address] [address] Arsh Nielsen Glucose [Mass/Vol] 108 mg/dL Normal [facility] Comment on above: Performed By: #### A 1C #### [facility] [address] [place] [address] Dr. Arsh Nielsen HbA1c (Bld) [Mass fraction] 5.4 % Normal 4.5-6.2 [facility] Comment on above: Performed By: #### A 1C #### [facility] [address] [place] [address] Dr. Arsh Nielsen LIPID PROFILEon 08-05-2022 CHOL-HDL RATIO NORM SEE BELOW Normal [facility] Comment on above: Result Comment: 3.3 - 4.4 LOW RISK 4.4 - 7.1 AVERAGE RISK 7.1 - 11.0 MODERATE RISK >11.0 HIGH RISK Performed By: #### C MP, LIPID #### [facility] [address] [place] [address] Dr. Arsh Nielsen Cholesterol [Mass/Vol] 157 mg/dL Normal <=200 [facility] Comment on above: Performed By: #### C MP, LIPID #### [facility] [address] [place] [address] Dr. Arsh Nielsen Cholesterol in HDL [Mass/Vol] 35 mg/dL Critically low 40-60 [facility] Comment on above: Performed By: #### C MP, LIPID #### [facility] [address] [place] [address] Dr. Arsh Nielsen Cholesterol in LDL [Mass/Vol] 98.8 mg/dL Normal [facility] Comment on above: Performed By: #### C MP, LIPID #### [facility] [address] [place] [address] Dr. Arsh Nielsen Cholesterol.total/Cho lesterol in HDL [Mass ratio] 4.5 {ratio} Normal [facility] Comment on above: Performed By: #### C MP, LIPID #### [facility] [address] [address] [address] Arsh Nielsen HDL NORMAL > or = 60 mg/dl - LOW CARDIOVASCULAR RISK <40 mg/dl - HIGH CARDIOVASCULAR RISK Normal [facility] Comment on above: Performed By: #### C MP, LIPID #### [facility] [address] [address] [address] Arsh Nielsen LDL CALC NORMAL SEE BELOW Normal [facility] Comment on above: Result Comment: <100 mg/dl OPTIMAL 100 - 129 mg/dl NEAR OR ABOVE OPTIMAL 130 - 159 mg/dl BORDERLINE HIGH 160 - 189 mg/dl HIGH >190 mg/dl VERY HIGH Performed By: #### C MP, LIPID #### [facility] [address] [address] [address] Arsh Nielsen Triglyceride [Mass/Vol] 116 mg/dL Normal <=150 [facility] Comment on above: Performed By: #### C MP, LIPID #### [facility] [address] [address] [address] Arsh Nielsen VLDL CALC 23.2 mg/dL Normal [facility] Comment on above: Performed By: #### C MP, LIPID #### [facility] [address] [address] [address] Arsh Nielsen PROF 14(COMP METB)on 022 Albumin [Mass/Vol] 3.7 g/dL Normal 3.4-5.0 [facility] Comment on above: Performed By: #### C MP, LIPID #### [facility] [address] [address] [address] Arsh Nielsen Albumin/Globulin [Mass ratio] 1.1 {ratio} Normal [facility] Comment on above: Performed By: #### C MP, LIPID #### [facility] [address] [address] [address] Arsh Nielsen ALP [Catalytic activity/Vol] 58 U/L Normal 46-116 [facility] Comment on above: Performed By: #### C MP, LIPID #### [facility] [address] [address] [address] Arsh Nielsen ALT [Catalytic activity/Vol] 18 U/L Normal 16-63 [facility] Comment on above: Performed By: #### C MP, LIPID #### [facility] [address] [address] [address] Arsh Nielsen Anion gap [Moles/Vol] 9.5 mmol/L Normal [facility] Comment on above: Performed By: #### C MP, LIPID #### [facility] [address] [address] [address] Arsh Nielsen AST [Catalytic activity/Vol] 16 U/L Normal 15-37 [facility] Comment on above: Performed By: #### C MP, LIPID #### [facility] [address] [address] [address] Arsh Nielsen Bilirubin [Mass/Vol] 0.6 mg/dL Normal 0.2-1.0 [facility] Comment on above: Performed By: #### C MP, LIPID #### [facility] [address] [address] [address] Arsh Nielsen Calcium [Mass/Vol] 9.1 mg/dL Normal 8.5-10.1 [facility] Comment on above: Performed By: #### C MP, LIPID #### [facility] [address] [address] [address] Arsh Nielsen Chloride [Moles/Vol] 107 mmol/L Normal 98-107 [facility] Comment on above: Performed By: #### C MP, LIPID #### [facility] [address] [address] [address] Arsh Nielsen CO2 [Moles/Vol] 31.2 mmol/L Normal 21.0-32.0 [facility] Comment on above: Performed By: #### C MP, LIPID #### [facility] [address] [address] [address] Arsh Nielsen Creatinine [Mass/Vol] 0.96 mg/dL Normal 0.70-1.30 [facility] Comment on above: Performed By: #### C MP, LIPID #### [facility] [address] [address] [address] Arsh Nielsen EGFR-AF LUXEMBOURGER >60 Normal >=60 [facility] Comment on above: Performed By: #### C MP, LIPID #### [facility] [address] [address] [address] Arsh Nielsen EGFR-NON AF LUXEMBOURGER >60 Normal >=60 [facility] Comment on above: Performed By: #### C MP, LIPID #### [facility] [address] [address] [address] Arsh Nielsen Globulin (S) [Mass/Vol] 3.3 g/dL Normal [facility] Comment on above: Performed By: #### C MP, LIPID #### [facility] [address] [place] [address] Dr. Arsh Nielsen Glucose [Mass/Vol] 100 mg/dL Normal 74-106 [facility] Comment on above: Performed By: #### C MP, LIPID #### [facility] [address] [address] [address] Arsh Nielsen Potassium [Moles/Vol] 4.7 mmol/L Normal 3.5-5.1 [facility] Comment on above: Performed By: #### C MP, LIPID #### [facility] [address] [address] [address] Arsh Nielsen Protein [Mass/Vol] 7.0 g/dL Normal 6.4-8.2 [facility] Comment on above: Performed By: #### C MP, LIPID #### [facility] [address] [address] [address] Arsh Nielsen Sodium [Moles/Vol] 143 mmol/L Normal 136-145 [facility] Comment on above: Performed By: #### C MP, LIPID #### [facility] [address] [address] [address] Arsh Nielsen Urea nitrogen [Mass/Vol] 14.0 mg/dL Normal 7.0-18.0 [facility] Comment on above: Performed By: #### C MP, LIPID #### [facility] [address] [place], [place] [address] Dr. Arsh Nielsen Urea nitrogen/Creatinine [Mass ratio] 14.6 mg/mg Normal [facility] Comment on above: Performed By: #### C MP, LIPID #### [facility] [address] [place], [place] [address] Dr. Arsh Nielsen Office Visiton 07-16-2022 Follow-up visit [id number] LanHans George 1965 M Date Provider Department Center 07/16/2022 ABRAHAM LARA MP [facility] Family History Family history unknown: Yes Level of Service:87868 [place] OFFICE/OUTPATIENT [facility] 30-44 MINUTES Reason for Visit and Comments: Pain [136] Normal [facility] US SHELDON DOP LEG LTon 07-07-20 [...] by: JACE SHARMA Date: 2022-07-07 12:15 Normal [facility] Encounters Encounter Date Encounter Type Care Provider Facility Start: 03-14-2024 End: 03-14-2024 ambulatory Nadeen Barlow Facility[place] Start: 03-14-2024 End: 03-14-2024 Patient encounter procedure Nadeen Barlow [facility] Start: 02-28-2024 End: 02-29-2024 ambulatory BANDAR MCMANUS Not Available Start: 01-27-2024 End: 01-27-2024 ambulatory BANDAR MCMANUS Not Available Start: 01-12-2024 End: 02-12-2024 ambulatory NADEEN M YEN [facility] Start: 01-10-2024 End: 01-12-2024 ambulatory NADEEN BARLOW [facility] Start: 01-09-2024 ambulatory [facility] Start: 01-08-2024 End: 01-11-2024 Emergency department patient visit [facility] Start: 01-08-2024 ambulatory [facility] Start: 08-10-2022 Encounter for genera l adult medical examination without abnormal findings DR NADEEN BARLOW [facility] Start: 08-05-2022 End: 08-06-[address] NADEEN BARLOW Facility:[facility] Start: 08-05-2022 End: 08-06-2022 Encounter for general adult medical examination without abnormal findings DR NADEEN BARLOW Facility:[facility] Start: 07-16-2022 End: 07-17-2022 ambulatory [facility] Start: 07-07-2022 End: 07-08-[address] NADEEN BARLOW Facility:[facility] Procedures Date Procedure Procedure Detail Performing Clinician Start: 08-05-[address] PEYMAN BARLOW Comment on above: Performed By: #### P [facility] #### [facility] [address] [place] [address] Dr. Arsh Nielsen Start: 07-03-2015 Colonoscopy Nadeen Ho y Appendectomy Nadeen Hoy Bone spur of right shoulder Nadeen Hoy Vasectomy Nadeen Hoy Immunizations Immunization Date Immunization Notes Care Provider Fa cili 06-15-2019 influenza virus vaccine, unspecified formulation Nadeen Barlow [facility] [place] Payers Date Payer Category Payer Unknown [id number] 2022 Private Health Insurance [id number] 1965 Unknown [id number] 2.16.84 [id number] 1965 Unknown [id number] 2.16.84 [id number] 1965 Unknown [id number] 2.16.8 [id number] 1965 Unknown [id number] 2.16.8 [id number] 1965 Unknown [id number] 2.16.8 [id number] 1965 Unknown [id number] 2.16.8 [id number] 1965 Unknown [id number] 2.16.8 [id number] 1965 Unknown [id number] 2.16.8 [id number] 1965 Unknown [id number] 2.16.8 [id number] 1965 Unknown [id number] 2.16.84 [id number] 1965 Unknown [id number] 2.16.84 [id number] 1965 Unknown [id number] 2.16.8 [id number] 1959 Unknown [id number] Social History Date Type Detail Facility Start: 07-17-2020 Tobacco smoking status Never s moked tobacco (finding) [facility] Tobacco [facility] status Never [facility] Sex Assigned At Male [facility] Clinical Note 03-14-2024 Note Date & Type Note Facility 03-14-2024 Note Echocardiology Procedure Exam Date/Time Accession # Ordering Dr. Toure Transthoracic 03/14/2024 08:46 EDT [id number] Yen MCMAHAN, Nadeen Best CPT code [id number] Reason for Exam (Echo Transthoracic Complete) R07.9, R55, I95.9 Report Version: 1 Study ID: [id number] [facility] [address] [place] [address] Adult Echocardiogram Report Name: HANS MONTENEGRO Study Date: 03/14/2024, 8: 05 AM Patient Location: [facility] [place] : 1965 (MM/DD/YYYY) Gender: Male Age: 58 Years Height: 177.8 cm BP: 162 / 93 mmHg Weight: 117.936 kg BSA: 2.33 m? Ordering Physician: Nadeen Barlow Referring Physician: Nadeen Barlow Performed By: Alis Graff, ANY, RVT Reason For Study: R07.9, R55, I95.9 History: HTN, Vertigo Interpretation Summary Ejection Fraction = 60-65%. Normal LV and RV. No significant valve disease. Normal estimated PA pressure. Normal diastolic filling pattern. Procedure A complete two-dimensional transthoracic echocardiogram was performed (2D, M-mode, spectral and color flow Doppler). Study quality is good. Left Ventricle The left ventricle is normal in size. There is normal left ventricular wall thickness. Ejection Fraction = 60-65%. The left ventricular wall motion is normal. Normal diastolic function. Left Atrium Echocardiology Report The left atrial size is normal. Right Atrium Right atrial size is normal. Right Ventricle The right ventricular systolic function is normal. The right ventricle is normal size. The right ventricular wall motion is normal. Aortic Valve The aortic valve is trileaflet. No aortic regurgitation. There is no aortic stenosis. Mitral Valve The mitral valve is normal in structure and function. There is no mitral regurgitation noted. No mitral valve stenosis. Tricuspid Valve Structurally normal tricuspid valve. No evidence of tricuspid regurgitation. Right ventricular systolic pressure is normal. Pulmonic Valve No evidence of stenosis. There is no pulmonic valve regurgitation. Arteries The aortic root is normal in size. Normal ascending aorta. Pulmonary artery diameter is normal. Venous The inferior vena cava is normal in size, and collapses normally with respiration. Effusion There is no pericardial effusion. Left Ventricle IVSd: 1.10 cm LVIDd: 4.8 cm LVPWd: 1.09 cm LVIDs: 3.0 cm EDV(MOD-sp4): 133.0 ml LVLd ap4: 7.9 cm ESV(MOD-sp4): 44.3 ml LVLs ap4: 6.7 cm EDV(MOD-sp2): 73.8 ml LVLd ap2: 7.9 cm ESV(MOD-sp2): 27.2 ml LVLs ap2: 6.7 cm Right Ventricle TAPSE: 2.6 cm RV Base_phl: 3.7 cm RV Mid_phl: 3.0 cm RV Length_phl: 8.3 cm Aortic Valve LVOT diam: 2.35 cm LV V1 mean P.00 mmHg LV V1 mean: 62.4 cm/sec LV V1 VTI: 23.3 cm Ao V2 VTI: 32.3 cm Ao mean P.0 mmHg Ao V2 mean: 90.8 cm/sec LV V1 max: 95.9 cm/sec LV V1 max P.7 mmHg Ao max P.5 mmHg Ao V2 max: 137.0 cm/sec Aorta Ao root diam: 3.2 cm asc Aorta Diam: 3.0 cm Atria LA dimension: 4.5 cm Diastolic funtion Med Peak E' Avila: 7.5 cm/sec Lat Peak E' Avila: 10.6 cm/sec MV dec time: 0.15 sec MV E max avila: 75.6 cm/sec MV A max avila: 59.8 cm/sec Echocardiology Report Ao max P.5 mmHg Ao mean P.0 mmHg Ao root area: 8.1 cm? Ao root diam: 3.2 cm Ao V2 max: 137.0 cm/sec Ao V2 mean: 90.8 cm/sec Ao V2 VTI: 32.3 cm AV VR: 0.70 MESERET(I,D): 3.1 cm? MESERET(V,D): 3.0 cm? MESERET(VTI)/BSA_phl: 1.28 EDV(MOD-sp4): 133.0 ml EDV(Teich): 105.4 ml EF(MOD-sp4): 66.7 % EF(Teich): 65.5 % ESV(MOD-sp4): 44.3 ml ESV(Teich): 36.4 ml FS: 36.0 % IVC Diam: 1.84 cm IVSd: 1.10 cm LA dimension: 4.5 cm LV V1 max: 95.9 cm/sec LV V1 max P.7 mmHg LV V1 mean: 62.4 cm/sec LV V1 mean P.00 mmHg LV V1 VTI: 23.3 cm LVIDd: 4.8 cm LVIDs: 3.0 cm LVLd ap4: 7.9 cm LVLs ap4: 6.7 cm LVOT area: 4.3 cm? LVOT diam: 2.35 cm LVPWd: 1.09 cm MV A max avila: 59.8 cm/sec MV dec time: 0.15 sec MV E max avila: 75.6 cm/sec MV E/A: 1.26 RAP systole: 3.0 mmHg RV Base_phl: 3.7 cm RV Length_phl: 8.3 cm RV Mid_phl: 3.0 cm RVDd: 3.2 cm RVIDd/LVIDd: 0.67 SV(LVOT): 101.0 ml SV(MOD-sp4): 88.7 ml TAPSE: 2.6 cm asc Aorta Diam: 3.0 cm E/E' Lat: 7.2 E/E' Med: 10.1 EDV(MOD-sp2): 73.8 ml EF (MOD-bp): 65.2 % EF(MOD-sp2): 63.1 % ESV(MOD-sp2): 27.2 ml LA Vol Index: 24.9 ml/m? Lat Peak E' Avila: 10.6 cm/sec LVLd ap2: 7.9 cm LVLs ap2: 6.7 cm Echocardiology Report Med Peak E' Avila: 7.5 cm/sec Electronically signed by: Kadeem Montenegro MD 03/14/2024, 8: 30 PM FINAL REPORT Dictated: 03/14/2024 8:05 am Kadeem Montenegro MD Signed (Electronic Signature): 03/14/2024 8:30 pm Signed by: Kadeem Montenegro MD Transcribed by: [facility] Technologist: ZACKARY Seaman [facility] Progress note 07-16-2022 Note Date & Type [...] report and order an MRI if indicated [facility] Evaluation + Plan note Note Date & Type Note Facility Evaluation + Plan note No data available for this section [facility] Hospital Discharge instructions Note Date & Type Note Facility Hospital Discharge instructions No data available for this section [facility] Progress note Note Date & Type Note Facility Progress note No data available for this section [facility] Summary Purpose Family History No Family History Records FoundNo Family History Records FoundNo Family History Records FoundNo Family History Records FoundNo Family History Records Found No data available for this section No Family History Records Found Advance Directives No [...] ized section and content) DATE CREATED AUTHOR 08/10/2022 [facility] DATE CREATED AUTHOR AUTHOR'S ORGANIZ ATION 05/10/2023 [facility] DATE CREATED AUTHOR AUTHOR'S ORGANIZ ATION 01/14/2024 [facility] DATE CREATED AUTHOR AUTHOR'S ORGANIZ ATION 02/13/2024 [facility] DATE CREATED AUTHOR AUTHOR'S ORGANIZ ATION 03/01/2024 [facility] EPIC DATE CREATED AUTHOR AUTHOR'S ORGANIZ ATION 03/15/2024 [facility] Patient Care team informatio n (unrecognized section and content) Personnel Name: Nadeen Barlow MD Address: Address: [address] [place] [address] FOR RECORDS PERTAINING TO PATIENTS WHO ARE [...] BE BASED ON THE PRIMARY CLINICAL RECORDS. [facility]. provides no warranty or guarantee of the accuracy or completeness of information in this document.
--- NOTE | 2024-03-30 15:42 | PC.NURSE ---
Nursing Note Cardiac Stress Test Reviewed: Medication, allergies and patient history reviewed. Stress Test: [ x Patient tolerated stress test well. [ ] Patient unable to tolerate walking on treadmill. Switched to Lexiscan stress test. [x ] No chest pain noted per patient [ ] Chest pain that resolved prior to leaving stress lab. [ ] No dyspnea noted. [x ] Dyspnea that resolved prior to leaving stress lab. [ x] Patient left stress lab asymptomatic and hemodynamically stable. [ ] Patient taken to the Emergency Room due to non-resolving symptoms following stress test. [x ] Patient achieved target heart rate. [ ] Patient unable to achieve target heart rate. [ ] Aminophylline administered as reversal agent to Lexiscan (Regadenoson). [ ] Nitro administered. Nursing Comments:
== END 2024-03-30 07:16 | disposition home or self-care (01) ==
LOC: NM 07:16
PROVIDERS: PCP Family Medicine; Visit Provider Family Medicine
DX: R07.89 Other chest pain (principal)
CPT/HCPCS: 78452; 93017; A9500

== ENCOUNTER 2024-03-31 08:50 | Outpatient (OUT) | payer OTHER, SELFPAY ==
--- OUTSIDE RECORDS SUMMARY | 2024-03-31 09:12 | XMS_ITS | CCD ---
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 Name Role Phone DR NADEEN BARLOW Admitting [...] Medication Allergies] Propensity to adverse reactions (disorder) [facility] Repository Medications Current Medications Medication Drug [...] take 2 capsules by mouth once daily [place]-3 Fish Oil 2 cap(s), Oral, Daily, Refill(s) [...] Interpretation Reference Range Facility [facility] 05-10-2023 Refill [id number] Hans Montenegro 1965 M Date Provider Department Center 05/10/2023 ABRAHAM LARA MP [facility] Family History Family history unknown: Yes Reason for Visit and Comments: Med Refill [[id number]] Normal [facility] INSULINon 08-07-2022 Insulin 9.1 uIU/mL Normal 2.6-24.9 [facility] Comment on above: Performed By: #### I NSULIN #### [facility] [address] [place] [address] Dr. Arsh Nielsen CBC AUTO DIFFon 08-05-2022 BASO # 0.1 103/ul Normal 0.0-0.1 [facility] Comment on above: Performed By: #### C BC #### [facility] [address] [place] [address] Dr. Arsh Nielsen Basophils/100 WBC (Bld) 1.7 % Normal 0.2-2.0 [facility] Comment on above: Performed By: #### C BC #### [facility] [address] [place] [address] Dr. Arsh Nielsen EO # 0.2 103/ul Normal 0.0-0.7 [facility] Comment on above: Performed By: #### C BC #### [facility] [address] [place] [address] Dr. Arsh Nielsen Eosinophils/100 WBC (Bld) 3.5 % Normal 0.9-7.0 [facility] Comment on above: Performed By: #### C BC #### [facility] [address] [place] [address] Dr. Arsh Nielsen Erythrocyte distribution width (RBC) [Ratio] 12.9 % Normal 11.0-15.0 [facility] Comment on above: Performed By: #### C BC #### [facility] [address] [place] [address] Dr. Arsh Nielsen Hematocrit (Bld) [Volume fraction] 43.5 % Normal 42.0-54.0 [facility] Comment on above: Performed By: #### C BC #### [facility] [address] [place] [address] Dr. Arsh Nielsen Hemoglobin (Bld) [Mass/Vol] 14.8 g/dL Normal 14.0-18.0 [facility] Comment on above: Performed By: #### C BC #### [facility] [address] [place] [address] Dr. Arsh Nielsen IG # 0.01 10e3/ul Normal 0.00-0.03 [facility] Comment on above: Performed By: #### C BC #### [facility] [address] [place] [address] Dr. Arsh Nielsen IG % 0.2 % Normal 0.0-0.5 [facility] Comment on above: Performed By: #### C BC #### [facility] [address] [place] [address] Dr. Arsh Nielsen LYMPH # 1.4 103/ul Normal 1.2-3.8 [facility] Comment on above: Performed By: #### C BC #### [facility] [address] [place] [address] Dr. Arsh Nielsen Lymphocytes/100 WBC (Bld) 31.2 % Normal 20.5-60.0 [facility] Comment on above: Performed By: #### C BC #### [facility] [address] [place] [address] Dr. Arsh Nielsen MANUAL DIFF REQ NO Normal [facility] Comment on above: Performed By: #### C BC #### [facility] [address] [place] [address] Dr. Arsh Nielsen MCH (RBC) [Entitic mass] 30.9 pg Normal 25.9-34.0 [facility] Comment on above: Performed By: #### C BC #### [facility] [address] [place] [address] Dr. Arsh Nielsen MCHC (RBC) [Mass/Vol] 34.0 g/dL Normal 29.9-35.2 [facility] Comment on above: Performed By: #### C BC #### [facility] [address] [place] [address] Dr. Arsh Nielsen MCV (RBC) [Entitic vol] 90.8 fL Normal 80.0-94.0 [facility] Comment on above: Performed By: #### C BC #### [facility] [address] [address] [address] Arsh Nielsen MONO # 0.4 103/ul Normal 0.3-0.8 [facility] Comment on above: Performed By: #### C BC #### [facility] [address] [address] [address] Arsh Nielsen Monocytes/100 WBC (Bld) 8.0 % Normal 1.7-12.0 [facility] Comment on above: Performed By: #### C BC #### [facility] [address] [address] [address] Arsh Nielsen NEUT # 2.6 103/ul Normal 1.4-6.5 [facility] Comment on above: Performed By: #### C BC #### [facility] [address] [place] [address] Dr. Arsh Nielsen Neutrophils/100 WBC (Bld) 55.4 % Normal 43.0-75.0 [facility] Comment on above: Performed By: #### C BC #### [facility] [address] [place] [address] Dr. Arsh Nielsen Platelet mean volume (Bld) [Entitic vol] 9.3 fL Critically low 9.5-13.5 [facility] Comment on above: Performed By: #### C BC #### [facility] [address] [place] [address] Dr. Arsh Nielsen PLT 248 103/ul Normal 150-450 [facility] Comment on above: Performed By: #### C BC #### [facility] [address] [place] [address] Dr. Arsh Nielsen RBC 4.79 106/ul Normal 4.70-6.10 [facility] Comment on above: Performed By: #### C BC #### [facility] [address] [place] [address] Dr. Arsh Nielsen WBC 4.6 103/ul Normal 4.0-11.0 [facility] Comment on above: Performed By: #### C BC #### [facility] [address] [address] [address] Arsh Nielsen GLYCOHEMOGLOBIN A1Con 2021 ADA RECOMMENDATION SEE BELOW Normal [facility] Comment on above: Result Comment: ADA RECOMMENDED LIMIT 4.0 - 6.0 ADA THERAPEUTIC TARGET < 7.0 ACTION SUGGESTED > 7.0 Performed By: #### A 1C #### [facility] [address] [address] [address] Arsh Nielsen Glucose [Mass/Vol] 108 mg/dL Normal [facility] Comment on above: Performed By: #### A 1C #### [facility] [address] [place] [address] Dr. Arsh Nielsen HbA1c (Bld) [Mass fraction] 5.4 % Normal 4.5-6.2 [facility] Comment on above: Performed By: #### A 1C #### [facility] [address] [place] [address] Dr. Arsh Nielsen LIPID PROFILEon 08-05-2022 CHOL-HDL RATIO NORM SEE BELOW Normal [facility] Comment on above: Result Comment: 3.3 - 4.4 LOW RISK 4.4 - 7.1 AVERAGE RISK 7.1 - 11.0 MODERATE RISK >11.0 HIGH RISK Performed By: #### C MP, LIPID #### [facility] [address] [place] [address] Dr. Arsh Nielsen Cholesterol [Mass/Vol] 157 mg/dL Normal <=200 [facility] Comment on above: Performed By: #### C MP, LIPID #### [facility] [address] [place] [address] Dr. Arsh Nielsen Cholesterol in HDL [Mass/Vol] 35 mg/dL Critically low 40-60 [facility] Comment on above: Performed By: #### C MP, LIPID #### [facility] [address] [place] [address] Dr. Arsh Nielsen Cholesterol in LDL [Mass/Vol] 98.8 mg/dL Normal [facility] Comment on above: Performed By: #### C MP, LIPID #### [facility] [address] [place] [address] Dr. Arsh Nielsen Cholesterol.total/Cho lesterol in HDL [Mass ratio] 4.5 {ratio} Normal [facility] Comment on above: Performed By: #### C MP, LIPID #### [facility] [address] [address] [address] Arsh Nielsen HDL NORMAL > or = 60 mg/dl - LOW CARDIOVASCULAR RISK <40 mg/dl - HIGH CARDIOVASCULAR RISK Normal [facility] Comment on above: Performed By: #### C MP, LIPID #### [facility] [address] [address] [address] Arsh Nielsen LDL CALC NORMAL SEE BELOW Normal [facility] Comment on above: Result Comment: <100 mg/dl OPTIMAL 100 - 129 mg/dl NEAR OR ABOVE OPTIMAL 130 - 159 mg/dl BORDERLINE HIGH 160 - 189 mg/dl HIGH >190 mg/dl VERY HIGH Performed By: #### C MP, LIPID #### [facility] [address] [address] [address] Arsh Nielsen Triglyceride [Mass/Vol] 116 mg/dL Normal <=150 [facility] Comment on above: Performed By: #### C MP, LIPID #### [facility] [address] [address] [address] Arsh Nielsen VLDL CALC 23.2 mg/dL Normal [facility] Comment on above: Performed By: #### C MP, LIPID #### [facility] [address] [address] [address] Arsh Nielsen PROF 14(COMP METB)on 022 Albumin [Mass/Vol] 3.7 g/dL Normal 3.4-5.0 [facility] Comment on above: Performed By: #### C MP, LIPID #### [facility] [address] [address] [address] Arsh Nielsen Albumin/Globulin [Mass ratio] 1.1 {ratio} Normal [facility] Comment on above: Performed By: #### C MP, LIPID #### [facility] [address] [address] [address] Arsh Nielsen ALP [Catalytic activity/Vol] 58 U/L Normal 46-116 [facility] Comment on above: Performed By: #### C MP, LIPID #### [facility] [address] [address] [address] Arsh Nielsen ALT [Catalytic activity/Vol] 18 U/L Normal 16-63 [facility] Comment on above: Performed By: #### C MP, LIPID #### [facility] [address] [address] [address] Arsh Nielsen Anion gap [Moles/Vol] 9.5 mmol/L Normal [facility] Comment on above: Performed By: #### C MP, LIPID #### [facility] [address] [address] [address] Arsh Nielsen AST [Catalytic activity/Vol] 16 U/L Normal 15-37 [facility] Comment on above: Performed By: #### C MP, LIPID #### [facility] [address] [address] [address] Arsh Nielsen Bilirubin [Mass/Vol] 0.6 mg/dL Normal 0.2-1.0 [facility] Comment on above: Performed By: #### C MP, LIPID #### [facility] [address] [address] [address] Arsh Nielsen Calcium [Mass/Vol] 9.1 mg/dL Normal 8.5-10.1 [facility] Comment on above: Performed By: #### C MP, LIPID #### [facility] [address] [address] [address] Arsh Nielsen Chloride [Moles/Vol] 107 mmol/L Normal 98-107 [facility] Comment on above: Performed By: #### C MP, LIPID #### [facility] [address] [address] [address] Arsh Nielsen CO2 [Moles/Vol] 31.2 mmol/L Normal 21.0-32.0 [facility] Comment on above: Performed By: #### C MP, LIPID #### [facility] [address] [address] [address] Arsh Nielsen Creatinine [Mass/Vol] 0.96 mg/dL Normal 0.70-1.30 [facility] Comment on above: Performed By: #### C MP, LIPID #### [facility] [address] [address] [address] Arsh Nielsen EGFR-AF TUVALUAN >60 Normal >=60 [facility] Comment on above: Performed By: #### C MP, LIPID #### [facility] [address] [address] [address] Arsh Nielsen EGFR-NON AF TUVALUAN >60 Normal >=60 [facility] Comment on above: Performed By: #### C MP, LIPID #### [facility] [address] [address] [address] Arsh Nielsen Globulin (S) [Mass/Vol] 3.3 g/dL Normal [facility] Comment on above: Performed By: #### C MP, LIPID #### [facility] [address] [place] [address] Dr. Arsh Nielsen Glucose [Mass/Vol] 100 mg/dL Normal 74-106 [facility] Comment on above: Performed By: #### C MP, LIPID #### [facility] [address] [address] [address] Arsh Nielsen Potassium [Moles/Vol] 4.7 mmol/L Normal 3.5-5.1 [facility] Comment on above: Performed By: #### C MP, LIPID #### [facility] [address] [address] [address] Arsh Nielsen Protein [Mass/Vol] 7.0 g/dL Normal 6.4-8.2 [facility] Comment on above: Performed By: #### C MP, LIPID #### [facility] [address] [address] [address] Arsh Nielsen Sodium [Moles/Vol] 143 mmol/L Normal 136-145 [facility] Comment on above: Performed By: #### C MP, LIPID #### [facility] [address] [address] [address] Arsh Nielsen Urea nitrogen [Mass/Vol] 14.0 mg/dL Normal 7.0-18.0 [facility] Comment on above: Performed By: #### C MP, LIPID #### [facility] [address] [place], [place] [address] Dr. Arsh Nielsen Urea nitrogen/Creatinine [Mass ratio] 14.6 mg/mg Normal [facility] Comment on above: Performed By: #### C MP, LIPID #### [facility] [address] [place], [place] [address] Dr. Arsh Nielsen Office Visiton 07-16-2022 Follow-up visit [id number] LanHans George 1965 M Date Provider Department Center 07/16/2022 ABRAHAM LARA MP [facility] MPORTHO Family History Family history unknown: Yes Level of Service:85869 [place] OFFICE/OUTPATIENT [facility] 30-44 MINUTES Reason for Visit and Comments: Pain [136] Normal [facility] US SHELDON DOP LEG LTon 07-07-20 US [...] [facility] Encounters Encounter Date Encounter Type Care Provider Facility Start: 03-14-2024 End: 03-14-2024 ambulatory Nadeen Barlow Facility:[facility] Start: 03-14-2024 End: 03-14-2024 Patient encounter procedure Nadeen Barlow [facility] Start: 02-28-2024 End: 02-29-2024 ambulatory BANDAR MCMANUS Not Available Start: 01-27-2024 End: 01-27-2024 ambulatory BANDAR MCMNAUS Not Available Start: 01-12-2024 End: 02-12-2024 ambulatory NADEEN M YEN [facility] Start: 01-10-2024 End: 01-12-2024 ambulatory NADEEN BARLOW [facility] Start: 01-09-2024 ambulatory [facility] Start: 01-08-2024 End: 01-11-2024 Emergency department patient visit [facility] Start: 01-08-2024 ambulatory [facility] Start: 08-10-2022 Encounter for genera l adult medical examination without abnormal findings DR NADEEN BARLOW [facility] Start: 08-05-2022 End: 08-06-[address] NADEEN BARLOW Facility:[facility] Start: 08-05-2022 End: 08-06-2022 Encounter for general adult medical examination without abnormal findings DR NADEEN BARLOW Facility:[facility] Start: 07-16-2022 End: 07-17-2022 ambulatory [facility] Start: 07-07-2022 End: 07-08-[address] NADEEN BARLOW Facility:[facility] Procedures Date Procedure Procedure Detail Performing Clinician Start: 08-05-[address] PEYMAN BARLOW Comment on above: Performed By: #### P [facility] #### [facility] [address] [place] [address] Dr. Arsh Nielsen Start: 07-03-2015 Colonoscopy Nadeen Ho y Appendectomy Nadeen Hoy Bone spur of right shoulder Nadeen Hoy Vasectomy Nadeen Hoy Immunizations Immunization Date Immunization Notes Care Provider Fa cili 06-15-2019 influenza virus vaccine, unspecified formulation Nadeen Barlow [facility] [place] Payers Date Payer Category Payer Unknown [id number] 2022 Private Health Insurance [id number] 1965 Unknown [id number] 2.16.84 [id number] 1965 Unknown [id number] 2.16.84 [id number] 1965 Unknown [id number] 2.16.8 [id number] 1965 Unknown [id number] 2.16.8 [id number] 1965 Unknown [id number] 2.16.8 [id number] 1965 Unknown [id number] 2.16.8 [id number] 1965 Unknown [id number] 2.16.8 [id number] 1965 Unknown [id number] 2.16.8 [id number] 1965 Unknown [id number] 2.16.8 [id number] 1965 Unknown [id number] 2.16.84 [id number] 1965 Unknown [id number] 2.16.84 [id number] 1965 Unknown [id number] 2.16.8 [id number] 1961 Unknown [id number] Social History Date Type Detail Facility Start: 07-17-2020 Tobacco smoking status Never s moked tobacco (finding) [facility] Tobacco [facility] status [facility] Sex Assigned At Male [facility] Clinical Note 03-14-2024 Note Date & Type Note Facility 03-14-2024 Note Echocardiology Procedure Exam Date/Time Accession # Ordering Dr. Toure Transthoracic 03/14/2024 08:46 EDT [id number] Yen MCMAHAN, Nadeen Best CPT code 46731 [id number] Reason for Exam (Echo Transthoracic Complete) R07.9, R55, I95.9 Report Version: 1 Study ID: [id number] [facility] [address] [place] [address] Adult Echocardiogram Report Name: HANS MONTENEGRO Study Date: 03/14/2024, 8: 05 AM Patient Location: WOODY Krueger [facility] : 1965 (MM/DD/YYYY) Gender: Male Age: 58 [...] Signed by: Kadeem Montenegro MD Transcribed by: [facility] Technologist: ZACKARY Seaman [facility] Progress note 07-16-2022 Note Date & Type [...] report and order an MRI if indicated [facility] Evaluation + Plan note Note Date & Type Note Facility Evaluation + Plan note No data available for this section [facility] Hospital Discharge instructions Note Date & Type Note Facility Hospital Discharge instructions No data available for this section [facility] Progress note Note Date & Type Note Facility Progress note No data available for this section [facility] Summary Purpose Family History No Family [...] CREATED AUTHOR AUTHOR'S ORGANIZ ATION 05/10/[address] [facility] DATE CREATED AUTHOR AUTHOR'S ORGANIZ ATION 01/14/2024 [facility] DATE CREATED AUTHOR AUTHOR'S ORGANIZ ATION 02/13/2024 [facility] DATE CREATED AUTHOR AUTHOR'S ORGANIZ ATION 03/01/2024 [facility] EPIC DATE CREATED AUTHOR AUTHOR'S ORGANIZ ATION 03/15/2024 [facility] Patient Care team informatio n (unrecognized section and content) Personnel Name: Nadeen Barlow MD Address: Address: [address] [place] [address] FOR RECORDS PERTAINING TO PATIENTS WHO ARE [...] BE BASED ON THE PRIMARY CLINICAL RECORDS. [facility]. provides no warranty or guarantee of the accuracy or completeness of information in this document.
--- NOTE | 2024-03-31 09:36 | RT_ITS ---
[facility] Test Date: 2024-03-31 Pat Name: MARIA ALEJANDRA WILCOX Department: Room: - Gender: Male [employer]anned Leather Roller: Shraddha Bowman RRT : 1965 Requested By: NADEEN JAIN Order Number: [id number] Reading MD: Dru Castellanos Interpretive Statements Pulmonary function testing was completed according to ATS criteria. Findings were considered accurate and reproducible. No bronchodilator was administered due to normal spirometric values. Spirometry: -FEV1/FVC: Normal @ 81% -FEV1: Normal @ 98% -FVC: Normal @ 91% Lung volumes by plethysmography: -RV: Normal @ 93% -TLC: Normal @ 94% Diffusion capacity: -DLCO: Normal @ 87% when corrected for Hb 14.5g/dL Flow-volume loop: -Normal shape Impressions: -Normal PFT. If asthma remains in the differential, may consider methacholine challenge testing. Clinical correlation required. Electronically Signed On 04-04-2024 16:57:00 EDT by Dru Castellanos
== END 2024-03-31 08:51 | disposition home or self-care (01) ==
LOC: CARD 08:51
PROVIDERS: PCP Family Medicine; Visit Provider Family Medicine
DX: R07.89 Other chest pain (principal)
CPT/HCPCS: 94010; 94726; 94729

== ENCOUNTER 2024-09-04 09:19 | Outpatient (OUT) | payer OTHER, SELFPAY ==
[2024-09-04 09:37] LABS: Basophils Absolute Auto 0.1 10^3/uL (0.0-0.1); Basophils Percent Auto 1.5 % (0.2-2.0); Eosinophils Absolute Auto 0.2 10^3/uL (0.0-0.7); Eosinophils Percent Auto 3.1 % (0.9-7.0); Hematocrit 46.5 % (42.0-54.0); Hemoglobin 15.7 g/dL (14.0-18.0); Immature Granulocytes Abs Auto 0.01 10^3/uL (0.00-0.03); Immature Granulocytes Pct Auto 0.2 % (0.0-0.5); Lymphocytes Absolute Auto 1.3 10^3/uL (1.2-3.8); Lymphocytes Percent Auto 26.6 % (20.5-60.0); Mean Corpuscular HGB Conc 33.8 g/dL (29.9-35.2); Mean Corpuscular Hemoglobin 30.7 pg (25.9-34.0); Mean Corpuscular Volume 90.8 fL (80.0-94.0); Monocytes Absolute Auto 0.3 10^3/uL (0.3-0.8); Monocytes Percent Auto 6.4 % (1.7-12.0); Neutrophils Percent Auto 62.2 % (43.0-75.0); Platelet Count 231 10^3/uL (150-450); Red Blood Count 5.12 10^6/uL (4.70-6.10); Red Cell Distribution Width 12.3 % (11.0-15.0); White Blood Count 4.8 10^3/uL (4.0-11.0)
--- OUTSIDE RECORDS SUMMARY | 2024-09-04 09:42 | XMS_ITS | CCD ---
Author Organization [facility] Care Team Providers Care Retail Manager Name Role Phone DR NADEEN BARLOW Admitting Unavailable CRISTOBAL, DR SENIOR Attending Unavailable CRISTOBAL, DR SENIOR Primary Care Unavailable CRISTOBAL, DR SENIOR Consulting Unavailable WEST, DR JACE Wasserman Consulting Unavailable CRISTOBAL, DR SENIOR Admitting Unavailable HOY, DR SENIOR Attending Unavailable HOY, DR SENIOR Primary Care Unavailable CRISTOBAL, DR SENIOR Consulting Unavailable ABRAHAM MUJICA Referring Unavailable ABRAHAM MUJICA Attending Unavailable ROBBIE NIETO Consulting Unavailabl e INPATIENT, TELENEUROLOGY Consulting Unavail able NADEEN BARLOW Referring Unavailable JOHNNYY, NADEEN Ricky Referring Unavailable CRISTOBAL NADEEN Ricky Primary Care Unavailable BANDAR MCMANUS Attending Unavailable BANDAR MCMANUS Attending Unavailable Nadeen Barlow Primary Care Physician [phone] Nadeen Barlow Admitting Unavailable Kadeem Montenegro Consulting UnavailNadeen Newell Referring Unavailable Nadeen Barlow Attending Unavailable Kadeem Montenegro Consulting UnavailKadeem Lord Consulting UnavailNadeen Newell MD Primary Care Provider Nadeen Barlow MD Unavailable NADEEN BARLOW Referring Unavailable HOY, NADEEN M Primary Care Unavailable MILER, ABHIJIT Referring Unavailable HOY, NADEEN M Primary Care Unavailable CAT, CALLUM Referring Unavailable HOY, NADEEN M Primary Care Unavailable GISELLE ARMSTRONG Attending Unavailable MILER, ABHIJIT Referring Unavailable CAT, CALLUM Attending Unavailable HOY, NADEEN M Primary Care Unavailable MILER, ABHIJIT Attending Unavailable MILER, ABHIJIT Referring Unavailable HOY, NADEEN M Primary Care Unavailable Allergies Allergy Classification Reported Allergen(s) Allergy Type Date of Onset Reaction(s) Facility (1 source) No Known Medication Allergies; Translations: [No Known Medication Allergies] Propensity to adverse reactions (disorder) [facility] Repository Medications Current Medications Medication Drug Class(es) Dates Sig (Normalized) Sig (Original) carvedilol 12.5 mg oral tablet (11 sources) alpha-Adrenergic Markie, beta-Adrenergic Markie Start: 07-16-2020 take 1 tablet by mouth twice daily Coreg 12.5 mg Tab 12.5 mg = 1 tab(s), Oral, BID, Refills(s) 0 Start Date: 07/16/20 Status: Ordered take 4 tablets by mo [facility] twice daily at mealtime carvedilol (COREG) 6.25 mg tablet Take 2 5 mg by mouth two times a day with meals. Active take 1 tablet by [facility] twice daily at mealtime carvedilol (COREG) 6.25 mg tablet Take 6.25 mg by mouth twice daily with meals. Active cloNIDine hydrochloride 0.1 mg oral tablet (2 sources) Central alpha-2 Adrenergic Agonist Start: 07-23-2024 take 1 tablet by mouth twice daily cloNIDine HCl (CATAPRES) 0.1 mg tablet Take 0.1 mg by mouth two times a day. 07/23/2024 Active CPAP (2 sources) CPAP using since 2007 Active Fish Oils (1 source) Start: 07-17-2020 take 2 capsules by mouth once daily Ledbetter-3 Fish Oil 2 cap(s), Oral, Daily, Refill(s) 0 Start Date: 07/17/20 Status: Ordered montelukast 10 mg oral tablet (2 sources) Leukotriene Receptor Antagonist take 1 tablet by mouth once daily at bedtime montelukast (SINGULAIR) 10 mg tablet Take 10 mg by mouth daily at bedtime. Active Multivitamin capsule (10 sources) take 1 capsule by mouth once daily Multivitamin capsule Take 1 capsule by mouth once daily. Active take 1 capsule by mouth once guzman ly Multivitamin capsule Take 1 capsule by mouth once daily. 0 Active Ledbetter-3 Fatty Acids, FISH OIL, (FISH OIL) 360-1,200 mg cap (10 sources) take 1 capsule by mo [facility] once daily at breakfast Ledbetter-3 Fatty Acids, FISH OIL, (FISH OIL) 360-1,200 mg cap Take 1 capsule by mouth daily with breakfast. Active take 1 capsule by mo [facility] once daily at breakfast Ledbetter-3 Fatty Acids, FISH OIL, (FISH OIL ) 360-1,200 mg cap Take 1 capsule by mouth daily with breakfast. 0 Active Problems Active Problems Problem Classification Problem Date Documented Da te Episodic/Chronic Allergic reactions (3 sources) Eczema; Translations: [Allergic condition] Onset: 07-24-2024 07-16-2020 Episodic Conditions associated with dizziness or vertigo (6 sources) Dizziness and giddiness; Translations: [Vertigo] Onset: 01-10-2024 04-27-2024 Episodic Conditions associated with dizziness or vertigo (1 source) Conditions associated with dizziness or vertigo Onset: 01-08-2024 Essential hypertension (1 source) Hypertensive disorder 08-07-2019 Chronic Headache; including migraine (1 source) Migraine 07-16-2020 Chronic Occlusion or stenosis of precerebral arteries (1 source) Bilateral stenosis of carotid arteries; Translations: [Occlusion and stenosis of bilateral carotid arteries] 05-30-2024 Chronic Osteoarthritis (2 sources) Unilateral primary osteoarthritis, left knee; Translations: [Unilateral primary osteoarthritis, left knee] Onset: 07-16-2022 Chronic Other ear and sense organ disorders (1 source) Sensorineural hearing loss, bilateral; Translations: [Sensorineural hearing loss, bilateral] 08-28-2024 Chronic Other ear and sense organ disorders (1 source) Ear pressure sensation; Translations: [Other specified disorders of ear, bilateral] 07-24-2024 Episodic Other gastrointestinal disorders (1 source) H/O: colitis 07-16-2020 Episodic Other nervous system disorders (1 source) Paresthesia of skin; Translations: [Paresthesia of skin] Onset: 2024 Episodic Other non-traumatic joint disorders (4 sources) Pain in left knee; Translations: [PAIN IN LEFT KNEE] Onset: 07-07-2022 Episodic Other nutritional; endocrine; and metabolic disorders (1 source) Body mass index 30+ - obesity 07-17-2020 Chronic Other nutritional; endocrine; and metabolic disorders (10 sources) Obese class II; Translations: [Obesity, unspecified] Onset: 12-01-2018 12-01-2018 Chronic Other screening for suspected conditions (not [...] Test Name Value Interpretation Reference Range Facility CNOVon 08-28-2024 CNOV Office Visit (OTAUCR) MONTENEGROHANS ([id number]) 1965 M Date Time Provider Department 08/28/24 7:00 AM GISELLE ARMSTRONG During your visit today, we recorded the following information about you: Giselle Armstrong AUD 08/28/2024 11:22 AM Signed [facility] Head and Neck Department AUDIOLOGIC EVALUATION REPORT Name: Hans Montenegro [facility]#: [id number] Date of Service: 08/28/2024 Date of : 1965 Age: [age] year old Referred by: Callum Cat MD Referred for: Evaluation of suspected change in hearing, tinnitus, or balance. Referral documented: In an order in Epic Patient's major complaints: Dizziness/vertigo/im balance Hans Montenegro was seen for an initial audiologic evaluation with concerns of dizziness.The following history was obtained by way of Hans Montenegro's previous medical record and direct patient interview: Hearing loss: Feels he has difficulty hearing in both ears. Hearing aids: Denied Tinnitus: Bilateral humming that fluctuates in intensity Ear pain: Denied Aural fullness: His ears have felt as if they are plugged and he is unable to pop his ears. Otorrhea: Denied History of ear infections: Denied History of otologic surgeries: Denied Dizziness: In December he had an episode of vertigo that initially lasted a few seconds, but then recurred 15 minutes later lasting almost 24 hours. Now he reports symptoms of being bouncy or mildly drunk with fluctuating symptoms that do not limit daily activities. There are no noted triggers. Symptoms are better since onset. 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 Other concerns: Denied See Audiogram in Procedures Tab for additional reported history and symptoms. Risk of Falls Documentation for over 65 years old: Does not apply IMPRESSIONS RIGHT EAR: Sensorineural hearing loss LEFT EAR: Sensorineural hearing loss Comparison of today's results with previous test results: No previous results available AUDIOLOGIC EVALUATION Following is a brief interpretation of the obtained findings from the audiologic evaluation. Refer to the Auditory Test Record for complete audiometric results. The patient was counseled about the test findings and appropriate audiologic recommendations were made. SUMMARY: Audiogram can be viewed under Procedures Tab OTOSCOPY RIGHT EAR: Otoscopic inspection revealed ear canal was clear with an identifiable cone of light suggesting WNL middle ear system. LEFT EAR: Otoscopic inspection revealed ear canal was clear with an identifiable cone of light suggesting WNL middle ear system. TYMPANOMETRY Description of procedure: This test is an objective evaluation of middle ear function. CPT code: 92395 RIGHT EAR: Normal ME function. LEFT EAR: Normal ME function. ACOUSTIC REFLEXES Description of procedure: This test is an objective measure of auditory and facial nerve pathways. RIGHT EAR PROBE EAR: (ipsi right stimulus ear; contralateral left stimulus ear): Acoustic Reflex Pattern: Did not test Acoustic Reflex Decay (left stimulus ear): Did not test. LEFT EAR PROBE EAR: (ipsi left stimulus ear; contralateral right stimulus ear): Acoustic Reflex Pattern: Did not test Acoustic Reflex Decay (right stimulus ear): Did not test. PURE TONE AUDIOMETRY AND SPEECH TESTING Description of procedure: This test is an objective evaluation hearing sensitivity via air and bone conduction and speech recognition testing. CPT code: 10272 RIGHT EAR: Hearing Sensitivity: Within normal limits through 2000 Hz sloping to moderately-severe sensorineural hearing loss. Word Recognition Score: Excellent (92%). WRS is consistent with hearing sensitivity. Words were presented at 70 dB HL which is above (greater than or equal to 60 dB HL) intensity level for average conversational speech. The NU-6 Word List (25 words) was used. LEFT EAR: Hearing Sensitivity: Within normal limits through 1500 Hz sloping to moderately-severe sensorineural hearing loss. Word Recognition Score: Good (88%). WRS is consistent with hearing sensitivity. Words were presented at 75 dB HL which is above (greater than or equal to 60 dB HL) intensity level for average conversational speech. The NU-6 Word List (25 words) was used. RECOMMENDATIONS * The patient was counseled regarding the need to continue to monitor hearing and have regular hearing assessments. * The patient was counseled regarding benefits/limitations of hearing aids. * Call [phone] to schedule an appointment to assess your need for hearing aids. Request a HAE appointment. * Continue assessment of vestibular and balance system (Vestibular Battery). FABIAN Nolasco Doctor of Audiology (Anival) Sarmad (more content not included)... Normal [facility] HEARING TEST/AUDIOGRAMon [facility] CNOVon 07-24-2024 CNOV Office Visit (OTOLIN) HANS MONTENEGRO ([id number]) 1965 M Date Time Provider Department 07/24/24 8:00 AM CALLUM CAT During your visit today, we recorded the following information about you: Pulse Blood pressure 51/minute 147/88 Callum Cat MD 07/24/2024 2:47 PM Signed OTOLARYNGOLOGY-HEAD AND NECK SURGERY CC: Hans Montenegro is a 59 year old male who is seen at the request of Dr. Abhijit Galicia for evaluation of dizziness. My findings and recommendations will be communicated to the referring provider via the shared electronic medical record. Assessment: Dizziness (primary encounter diagnosis) Ear pressure, bilateral Plan: - Recommend audiogram - Recommend vestibular battery test - Will call with results of the above testing Callum Cat MD HPI: Mr. Montenegro is a 59 y/o M who presents for evaluation of dizziness. Symptoms have been present intermittently since December. He was told it was a possible inner ear infection. Treated with antibiotics. Seen in the ED and had CT brain, MRI that were normal. Issues with blood pressure being high - started on other medications and then blood pressure dipped too low. Diagnosed with BPPV at one point, did vestibular PT, but didn't feel like that helped. He gets intermittent ear fullness. Reports more sinus issues or allergy issues than he used to have. He is on singulair. No discolored drainage from his nose ALLERGIES No Known Allergies Current Outpatient Medications Medication Sig montelukast (SINGULAIR) 10 mg tablet Take 10 mg by mouth daily at bedtime. cloNIDine HCl (CATAPRES) 0.1 mg tablet Take 0.1 mg by mouth two times a day. CPAP using since 2007 Ledbetter-3 Fatty Acids, FISH OIL, (FISH OIL) 360-1,200 mg cap Take 1 capsule by mouth daily with breakfast. Multivitamin capsule Take 1 capsule by mouth once daily. carvedilol (COREG) 6.25 mg tablet Take 25 mg by mouth two times a day with meals. No current facility-administere d medications for this visit. No past medical history on file. No past surgical history on file. Social History: Social History Tobacco Use Smoking status: Never Smokeless tobacco: Never Substance Use Topics Alcohol use: Not Currently Drug use: Never No family history on file. ROS: GENERAL: No weight loss, malaise or fevers. HEENT: See HPI NECK: Negative for lumps, goiter, pain and significant neck swelling RESPIRATORY: Negative for cough, hemoptysis, wheezing or shortness of breath CARDIOVASCULAR: Negative for chest pain, leg swelling or palpitations. GASTROINTESTINAL: No nausea, vomiting, or diarrhea MUSCULOSKELETAL: Negative for joint pain or swelling, back pain or muscle pain. NEUROLOGIC: See HPI SKIN: Negative for lesions, rash, and itching. HEMATOLOGIC/LYMPHATI C/IMMUNOLOGIC: Negative for prolonged bleeding, bruising easily or swollen nodes. ENDOCRINE: Negative for cold or heat intolerance, polyuria, polydipsia and goiter. PHYSICAL EXAM: On physical examination Hans Montenegro is a well-developed, well nourished male. His speech is normal and his voice is strong. Mental status revealed patient to be alert and oriented. Mood is appropriate. Details of the physical examination: HEAD AND FACE: Physical examination of the head, neck, external nose, external ears, mouth and face fails to demonstrate any significant abnormality or asymmetry to critical face to face observation. Skin and scalp are normal. EARS: RT Canal: patent RT Drum: intact RT Pneumotoscopy: mobile LT Canal: patent LT Drum: intact LT Pneumotoscopy: mobile NOSE: Examination of the nasal cavity revealed a septum which is deviated. The mucosa is pink, and the visible turbinates are normal on anterior rhinoscopy. There is no purulence or polyps. MASTICATION: The teeth appear in good condition. The lips and gums are without lesions. ORAL CAVITY AND OROPHARYNX: The oral mucosa, hard and soft palates, tongue, tonsil area, and posterior pharyngeal wall are without lesions. NECK: The neck appears symmetric without scars. On palpation, there are no masses or lymphadenopathy. The thyroid is not palpable and was free of masses. No salivary gland masses or hypertrophy is noted. Callum Cat MD Referring Provider: ABHIJIT GALICIA [[id number]] Allergies As of Date: 07/24/2024 (No Known Allergies) Date Reviewed: 07/24/2024 Reviewed by: Callum Cat MD - Fully Assessed Reason for Visit: New Patient [172] Cmt: C/o ear blockage, sinus concern? Vascular, Dr. Lo. Referred to ENT. Onset: approx December 2023 after bout of vertigo. present. Primary Visit Diagnosis:Dizziness [R42] Other Visit Diagnosis:Ear pressure, bilateral [H93.8X3] Order(s):CONSULT TO ENT [9008] Order #: [id number]: 1 VESTIBULAR TEST BATTERY [[id number]] Order #: [id number]: 1 HEARING TEST/AUDIOGRAM [[id number]] Order #: [id number]: 1 FUTURE Prescription (more content not included)... Normal [facility] CNOVon 05-30-2024 CNOV Office Visit (VASSAV) HANS MONTENEGRO ([id number]) 1965 M Date Time Provider Department 05/30/24 9:45 AM ABHIJIT GALICIA During your visit today, we recorded the following information about you: Blood pressure Weight Height 172/102 115.7 kg 1.778 m Abhijit Galicia MD 05/30/2024 9:34 AM Signed Heart , Vascular and Thoracic [place] DEPARTMENT OF VASCULAR SURGERY OUTPATIENT VISIT DATE May 30, 2024 OUTPATIENT VISIT TYPE CONSULTATION SERVICE DATE: 05/30/2024 SERVICE TIME: 9:20 AM PRIMARY CARE PHYSICIAN: Nadeen Barlow MD REFERRING PROVIDER: Abhijit Galicia [id number] [place] [id number] Consult requested for an opinion regarding the evaluation and treatment of the above. My final impression and recommendations will be communicated back to the requesting physician by way of the shared medical record or letter via [place] mail. CHIEF COMPLAINT: Asymptomatic carotis tenosis HISTORY OF PRESENT ILLNESS: Vascular consultation at the request of Dr. Abhijit Galicia. A copy of this consultation note will be provided to the requesting physician by way of shared Medical record or letter to requesting physician via [place] mail. Mr. Montenegro is a 59 year old male who is seen today for Asymtptomaitc carotid stenosis No stroke/tia/amaurosis Endorses vertigo, cheng when blood pressure high, but can also occur at normal pressure Sometimes associated w allergies Feels like room is spinning sometimes, but other times it's like blurry vision and has to wear glasses. No past medical history on file. No past surgical history on file. SOCIAL HISTORY: Social History Tobacco Use Smoking status: Never Smokeless tobacco: Never Substance Use Topics Alcohol use: Not Currently Drug use: Never No family history on file. MEDICATIONS: Ledbetter-3 Fatty Acids, FISH OIL, (FISH OIL) 360-1,200 mg cap Take 1 capsule by mouth daily with breakfast. Multivitamin capsule Take 1 capsule by mouth once daily. carvedilol (COREG) 6.25 mg tablet Take 6.25 mg by mouth twice daily with meals. ALLERGIES: ALLERGIES Not on File REVIEW OF SYSTEM: Constitutional: No weight loss, malaise or fevers. HEENT: Negative for frequent or significant headaches Respiratory: Negative for cough, wheezing, or shortness of breath Cardiovascular: Negative for chest pain, leg swelling or palpitations Gatrointestinal: Negative for abdominal discomfort, blood in stools or black stools or change in bowel habits Genitourinary: No history of dysuria, frequency, or incontinence Musculoskeletal: Negative for joint pain or swelling, back pain or muscle pain Endocrine: Negative for cold or heat intolerance, polyuria, polydipsia and goiter Hematology/Lymphatic : Negative for prolonged bleeding, bruising easily or swollen nodes Neurologic: No history or headaches, syncope, paralysis, seizures or tremors Integumentary: Negative for lesions, rash, and itching. PHYSICAL EXAM: VITALS: BP 172/102[nervous[ Ht 5' 10 (1.78m) Wt 255 lb (115.7kg) BMI 36.59 kg/(m2). General: Alert and oriented Integumentary: Normal color, no rash, no lesions. HEENT: EOM, pupils equal, round and reactive. Cardiovascular: Pulse regular. Lungs: No chest deformities or chest wall tenderness. Abdomen: Soft, non-tender, no rigidity. Extremities: No deformity, no edema or tenderness, no joint swelling or clubbing. Neurological: Normal cognition and motor skills. Diagnostic tests reviewed for today's visit: Most recent labs Most recent imaging 05/30/24 MARY 0-19%, LICA 0-19% IMPRESSION: Mr. Montenegro is a 59 year old male asymptomatic carotid tsnoeis . PLAN and RECOMMENDATIONS: Cont optimal medical mgmt Prn fu Referral to ENT SIGNATURE: Abhijit Galicia MD PATIENT NAME: Hans Montenegro DATE: May 30, 2024 TIME: 9:20 AM Referring Provider: ABHIJIT GALICIA [[id number]] Allergies As of Date: 05/30/2024 (Not on File) Date Reviewed: 05/30/2024 Reviewed by: Jess Hyatt RN - Fully Assessed Reason for Visit: New Patient [172] Primary Visit Diagnosis:Bilateral carotid artery stenosis [I65.23] Prescriptions as of 05/30/2024 - Ledbetter-3 Fatty Acids, FISH OIL, (FISH OIL) 360-1,200 mg cap Take 1 capsule by mouth daily with breakfast. - Multivitamin capsule Take 1 capsule by mouth once daily. - carvedilol (COREG) 6.25 mg tablet Take 6.25 mg by mouth twice daily with meals. Problem List As Of Date 05/30/2024 Noted Resolved Obesity, Class II, BMI 35-39.9 [E66.9] 12/01/2018 Encounter Status:Closed by ABHIJIT GALICIA on 05/30/24 Normal [facility] US CAROTID ARTERIES SHARMILA VAS LABon 05-30-2024 US CAROTID ARTERIES SH[facility]A VAS LAB Non-Invasive Vascular Laboratory [facility] Carotid Duplex Bilateral/Complete Date of service/time: 05/30/2024 8:30:56 AM Name: HANS MONTENEGRO Date of : 1965 Age: 59 years Gender: M Clinical Indication Vertigo. TECHNIQUE -------- A carotid duplex ultrasound examination was performed, including grayscale imaging and color Doppler and spectral Doppler examination of the below mentioned arteries. FINDINGS -------- RIGHT SIDE Common carotid artery: Proximal: PSV: 92 cm/s. EDV: 18 cm/s. Mid: PSV: 96 cm/s. EDV: 32 cm/s. Distal: PSV: 71 cm/s. EDV: 22 cm/s. Internal carotid artery: Origin: PSV: 65 cm/s. EDV: 18 cm/s. Proximal: PSV: 72 cm/s. EDV: 25 cm/s. Mid: PSV: 68 cm/s. EDV: 23 cm/s. Distal: PSV: 65 cm/s. EDV: 26 cm/s. ICA/CCA Ratio: 1.0 External carotid artery: Proximal: PSV: 76 cm/s. EDV: 18 cm/s. Subclavian artery: Proximal: PSV: 88 cm/s. EDV: 0 cm/s. Vertebral artery: PSV: 50 cm/s. EDV: 20 cm/s. LEFT SIDE Common carotid artery: Proximal: PSV: 105 cm/s. EDV: 25 cm/s. Mid: PSV: 69 cm/s. EDV: 18 cm/s. Distal: PSV: 79 cm/s. EDV: 21 cm/s. Internal carotid artery: Origin: PSV: 62 cm/s. EDV: 16 cm/s. Proximal: PSV: 73 cm/s. EDV: 21 cm/s. Mid: PSV: 78 cm/s. EDV: 31 cm/s. Distal: PSV: 67 cm/s. EDV: 26 cm/s. ICA/CCA Ratio: 1.0 External carotid artery: Proximal: PSV: 86 cm/s. EDV: 15 cm/s. Subclavian artery: Proximal: PSV: 150 cm/s. EDV: 17 cm/s. Vertebral artery: PSV: 50 cm/s. EDV: 19 cm/s. IMPRESSION RIGHT SIDE Internal carotid artery: 0-19% stenosis. Vertebral artery: Patent and antegrade flow noted. Innominate artery: Not visualized. Subclavian artery: Patent. LEFT SIDE Internal carotid artery: 0-19% stenosis. Vertebral artery: Patent and antegrade flow noted. Subclavian artery: Patent. Technologist: Nadeen TERRELL Ordering physician: ABHIJIT GALICIA Interpreting physician: Abhijit Galicia MD, GRETCHEN Final CC [facility] Medical Image : [id number] DynamicsSISUID See Link below for Image Normal [facility] US Carotid arteries - bilate [facility] 05-30-2024 Non-Invasive Vascular Laboratory [facility] Carotid Duplex Bilateral/Complete Date of service/time: 05/30/2024 8:30:56 AM Name: HANS MONTENEGRO Date of : 1965 Age: 59 years Gender: M Clinical Indication Vertigo. TECHNIQUE -------- A carotid duplex ultrasound examination was performed, including grayscale imaging and color Doppler and spectral Doppler examination of the below mentioned arteries. FINDINGS -------- RIGHT SIDE Common carotid artery: Proximal: PSV: 92 cm/s. EDV: 18 cm/s. Mid: PSV: 96 cm/s. EDV: 32 cm/s. Distal: PSV: 71 cm/s. EDV: 22 cm/s. Internal carotid artery: Origin: PSV: 65 cm/s. EDV: 18 cm/s. Proximal: PSV: 72 cm/s. EDV: 25 cm/s. Mid: PSV: 68 cm/s. EDV: 23 cm/s. Distal: PSV: 65 cm/s. EDV: 26 cm/s. ICA/CCA Ratio: 1.0 External carotid artery: Proximal: PSV: 76 cm/s. EDV: 18 cm/s. Subclavian artery: Proximal: PSV: 88 cm/s. EDV: 0 cm/s. Vertebral artery: PSV: 50 cm/s. EDV: 20 cm/s. LEFT SIDE Common carotid artery: Proximal: PSV: 105 cm/s. EDV: 25 cm/s. Mid: PSV: 69 cm/s. EDV: 18 cm/s. Distal: PSV: 79 cm/s. EDV: 21 cm/s. Internal carotid artery: Origin: PSV: 62 cm/s. EDV: 16 cm/s. Proximal: PSV: 73 cm/s. EDV: 21 cm/s. Mid: PSV: 78 cm/s. EDV: 31 cm/s. Distal: PSV: 67 cm/s. EDV: 26 cm/s. ICA/CCA Ratio: 1.0 External carotid artery: Proximal: PSV: 86 cm/s. EDV: 15 cm/s. Subclavian artery: Proximal: PSV: 150 cm/s. EDV: 17 cm/s. Vertebral artery: PSV: 50 cm/s. EDV: 19 cm/s. IMPRESSION RIGHT SIDE Internal carotid artery: 0-19% stenosis. Vertebral artery: Patent and antegrade flow noted. Innominate artery: Not visualized. Subclavian artery: Patent. LEFT SIDE Internal carotid artery: 0-19% stenosis. Vertebral artery: Patent and antegrade flow noted. Subclavian artery: Patent. Technologist: Nadeen White [facility] Ordering physician: ABHIJIT GALICIA Interpreting physician: Abhijit Galicia MD, GRETCHEN Final See Link below for Image [facility] CNOVon 05-02-2024 CNOV Office Visit (VASSAV) HANS MONTENEGRO ([id number]) 1965 M Date Time Provider Department 05/02/24 12:30 PM ABHIJIT GALICIA During your visit today, we recorded the following information about you: Referring Provider: NADEEN BARLOW [[id number]] Allergies As of Date: 05/02/2024 (Not on File) Date Reviewed: 12/01/2018 Reviewed by: Paulie Todd - Fully Assessed Primary Visit Diagnosis:NO SHOW Prescriptions as of 05/03/2024 - Ledbetter-3 Fatty Acids, FISH OIL, (FISH OIL) 360-1,200 mg cap Take 1 capsule by mouth daily with breakfast. - Multivitamin capsule Take 1 capsule by mouth once daily. - carvedilol (COREG) 6.25 mg tablet Take 6.25 mg by mouth twice daily with meals. Problem List As Of Date 05/02/2024 Noted Resolved Obesity, Class II, BMI 35-39.9 [E66.9] 12/01/2018 Encounter Status:Closed by ABHIJIT GALICIA on 05/03/24 Normal [facility]ter 04-27-2024 CNPN Telephone (VASSAV) HANS MONTENEGRO ([id number]) 1965 M Date Time Provider Department 04/27/24 ABHIJIT GALICIA During your visit today, we recorded the following information about you: Ivania Ortaa 04/27/2024 10:59 AM Signed Left patient a message to call back and reschedule 05/[address] Galicia, pt needs a carotid duplex prior to appt. Called Dr. Barlow's office, they will fax referral and order for carotid duplex (scanned in). Stephen Bernardo 04/27/2024 3:31 PM Signed Patient called back and both appointments were scheduled for 05/30. Allergies As of Date: 04/27/2024 (Not on File) Date Reviewed: 12/01/2018 Reviewed by: Paulie Todd - Fully Assessed Reason for Visit: Appointment [186] Prescriptions as of 04/27/2024 - Ledbetter-3 Fatty Acids, FISH OIL, (FISH OIL) 360-1,200 mg cap Take 1 capsule by mouth daily with breakfast. - Multivitamin capsule Take 1 capsule by mouth once daily. - carvedilol (COREG) 6.25 mg tablet Take 6.25 mg by mouth twice daily with meals. Problem List As Of Date 04/27/2024 Noted Resolved Obesity, Class II, BMI 35-39.9 [E66.9] 12/01/2018 Encounter Status:Closed by [facility] HANS MONTENEGRO ([id number]) 1965 M Date Time Provider Department 04/24/24 NO ONE (HISTORICAL) REFPHY During your visit today, we recorded the following information about you: Sana Harrington 04/24/2024 12:41 PM Signed Patient: Hans Montenegro Date of : 1965 Patient phone number: [phone] Referring Provider for the encounter: Nadeen Barlow Requesting Provider: n/a Reason for requesting visit (RFV/signs and symptoms/diagnosis): Carotid Occlusive Disease Person calling: caregiver: Sana Return call to: self Medical Records/Insurance Card scanned into Flyr: Yes Comments: Brian GaliciaAllison 04/25/2024 3:14 PM Signed Triage please, pulled records from [facility] Brian FridaAllison 04/26/2024 12:54 PM Signed Lvm to call back to schedule [place] FridaAllison 04/27/2024 10:40 AM Signed Patient scheduled at [facility] with a ameena provider Allergies As of Date: 04/24/2024 (Not on File) Date Reviewed: 12/01/2018 Reviewed by: Paulie Todd - Fully Assessed Reason for Visit: External Referrals/resources [909] Prescriptions as of 04/27/2024 - Ledbetter-3 Fatty Acids, FISH OIL, (FISH OIL) 360-1,200 mg cap Take 1 capsule by mouth daily with breakfast. - Multivitamin capsule Take 1 capsule by mouth once daily. - carvedilol (COREG) 6.25 mg tablet Take 6.25 mg by mouth twice daily with meals. Problem List As Of Date 04/24/2024 Noted Resolved Obesity, Class II, BMI 35-39.9 [E66.9] 12/01/2018 Encounter Status:Closed by SANA HARRINGTON on 04/24/24 [facility] Dexter 04-20-2024 CNPN Telephone (REFPHY) HANS MONTENEGRO ([id number]) 1965 M Date Time Provider Department 04/20/24 NO ONE (HISTORICAL) REFPHY During your visit today, we recorded the following information about you: Kirit Angel 04/20/2024 10:20 AM Signed Patient: Hans Montenegro Date of : 1965 Patient phone number: [phone] Referring Provider for the encounter: Nadeen Barlow Requesting Provider: Vascular Surgery Reason for requesting visit (RFV/signs and symptoms/diagnosis): Carotid Occlusive Disease. Person calling: Kirit A Return call to: Patient Medical Records/Insurance Card scanned into Flyr: No Comments: Allergies As of Date: 04/20/2024 (Not on File) Date Reviewed: 12/01/2018 Reviewed by: Paulie Todd - Fully Assessed Prescriptions as of 04/21/2024 - Ledbetter-3 Fatty Acids, FISH OIL, (FISH OIL) 360-1,200 mg cap Take 1 capsule by mouth daily with breakfast. - Multivitamin capsule Take 1 capsule by mouth once daily. - carvedilol (COREG) 6.25 mg tablet Take 6.25 mg by mouth twice daily with meals. Problem List As Of Date 04/20/2024 Noted Resolved Obesity, Class II, BMI 35-39.9 [E66.9] 12/01/2018 Encounter Status:Closed by KIRIT ANGEL on 04/21/24 Normal [facility] MRI CERVICAL SPINE WO IVCONo n 2024 MRI CERVICAL SPINE WO IVCON * * *Final Report* * * DATE OF EXAM: 2024 4:18PM LDM 0297 - MRI CERVICAL SPINE WO IVCON / PROCEDURE REASON: R20.2 Paresthesia of upper limb * * * * Physician Interpretation * * * * EXAMINATION: MRI CERVICAL SPINE WO IVCON CLINICAL HISTORY: R20.2 Paresthesia of upper limb TECHNIQUE: Routine cervical spine MR protocol without gadolinium. MQ: [id number] COMPARISON: None. RESULT: Counting reference: Craniocervical junction. Anatomic Variants: None. Localizer images: Unremarkable. Alignment: Alignment is anatomic. Craniocervical junction: Craniocervical junction is normal. Cord: The visualized cord is within normal limits of signal intensity and morphology. Bone marrow signal/fracture: No evidence of pathologic marrow infiltration. No evidence of acute or prior fracture. Multilevel endplate degenerative changes Cervical soft tissues: The paraspinal soft tissues are within normal limits. C2-C3: Canal and foramina are patent. C3-C4: Mild degree degenerative bilateral foraminal stenosis greater left side due to uncovertebral hypertrophy and facet arthropathy. C4-C5: Mild degree degenerative bilateral foraminal stenosis greater left side due to uncovertebral hypertrophy and facet arthropathy. Asymmetric left facet arthropathy. C5-C6: Moderate degree degenerative right foraminal stenosis. Central canal is patent C6-C7: Left posterior disc osteophyte complex asymmetrically narrowing the left central canal and mild narrowing the left neural foramen C7-T1: Canal and foramina are patent. Asymmetric right facet arthropathy IMPRESSION: 1.C6-C7: Left posterior disc osteophyte complex asymmetrically narrowing the left central canal and mild narrowing the left neural foramen 2. Unremarkable MRI cervical portion of spinal cord. 3. Mild degree multilevel degenerative foraminal stenosis due to facet joint arthropathy Anatomic Variant: None. Assume 7 cervical vertebrae with counting from the craniocervical junction. Weapons Engineer: JIMMY Transcribe Date/Time: Apr 24 2024 12:44P Dictated by : ALEJANDRO KENYON MD This examination was interpreted and the report reviewed and electronically signed by: ALEJANDRO KENYON MD on Apr 24 2024 12:57PM EST [id number] CN Normal [facility] Refillon 05-10-2023 Refill [id number] Hans Montenegro 1965 M Date Provider Department Center 05/10/2023 ABRAHAM LARA MP ORTHO MPORTHO Family History Family history unknown: Yes Reason for Visit and Comments: Med Refill [[id number]] Normal [facility] INSULINon 08-07-2022 Insulin 9.1 uIU/mL Normal 2.6-24.9 [facility] Comment on above: Performed By: #### I NSULIN #### [facility] [address] [address] [address] Arsh Nielsen CBC AUTO DIFFon 08-05-2022 BASO # 0.1 103/ul Normal 0.0-0.1 [facility] Comment on above: Performed By: #### C BC #### [facility] [address] [address] [address] Arsh Nielsen Basophils/100 WBC (Bld) 1.7 % Normal 0.2-2.0 [facility] Comment on above: Performed By: #### C BC #### [facility] [address] [place] [address] Dr. Arsh Nielsen EO # 0.2 103/ul Normal 0.0-0.7 [facility] Comment on above: Performed By: #### C BC #### [facility] [address] [place] [address] Dr. Arsh Nielsen Eosinophils/100 WBC (Bld) 3.5 % Normal 0.9-7.0 [facility] Comment on above: Performed By: #### C BC #### [facility] [address] [place] [address] Dr. Arsh Nielsen Erythrocyte distribution width (RBC) [Ratio] 12.9 % Normal 11.0-15.0 [facility] Comment on above: Performed By: #### C BC #### [facility] [address] [place] [address] Dr. Arsh Nielsen Hematocrit (Bld) [Volume fraction] 43.5 % Normal 42.0-54.0 [facility] Comment on above: Performed By: #### C BC #### [facility] [address] [place] [address] Dr. Arsh Nielsen Hemoglobin (Bld) [Mass/Vol] 14.8 g/dL Normal 14.0-18.0 [facility] Comment on above: Performed By: #### C BC #### [facility] [address] [place] [address] Dr. Arsh Nielsen IG # 0.01 10e3/ul Normal 0.00-0.03 [facility] Comment on above: Performed By: #### C BC #### [facility] [address] [place] [address] Dr. Arsh Nielsen IG % 0.2 % Normal 0.0-0.5 [facility] Comment on above: Performed By: #### C BC #### [facility] [address] [place] [address] Dr. Arsh Nielsen LYMPH # 1.4 103/ul Normal 1.2-3.8 [facility] Comment on above: Performed By: #### C BC #### [facility] [address] [place] [address] Dr. Arsh Nielsen Lymphocytes/100 WBC (Bld) 31.2 % Normal 20.5-60.0 [facility] Comment on above: Performed By: #### C BC #### [facility] [address] [place] [address] Dr. Arsh Nielsen MANUAL DIFF REQ NO Normal [facility] Comment on above: Performed By: #### C BC #### [facility] [address] [place] [address] Dr. Arsh Nielsen MCH (RBC) [Entitic mass] 30.9 pg Normal 25.9-34.0 [facility] Comment on above: Performed By: #### C BC #### [facility] [address] [place] [address] Dr. Arsh Nielsen MCHC (RBC) [Mass/Vol] 34.0 g/dL Normal 29.9-35.2 [facility] Comment on above: Performed By: #### C BC #### [facility] [address] [place] [address] Dr. Arsh Nielsen MCV (RBC) [Entitic vol] 90.8 fL Normal 80.0-94.0 [facility] Comment on above: Performed By: #### C BC #### [facility] [address] [place] [address] Dr. Arsh Nielsen MONO # 0.4 103/ul Normal 0.3-0.8 [facility] Comment on above: Performed By: #### C BC #### [facility] [address] [place] [address] Dr. Arsh Nielsen Monocytes/100 WBC (Bld) 8.0 % Normal 1.7-12.0 [facility] Comment on above: Performed By: #### C BC #### [facility] [address] [place] [address] Dr. Arsh Nielsen NEUT # 2.6 103/ul Normal 1.4-6.5 [facility] Comment on above: Performed By: #### C BC #### [facility] [address] [address] [address] Arsh Nielsen Neutrophils/100 WBC (Bld) 55.4 % Normal 43.0-75.0 [facility] Comment on above: Performed By: #### C BC #### [facility] [address] [address] [address] Arsh Nielsen Platelet mean volume (Bld) [Entitic vol] 9.3 fL Critically low 9.5-13.5 [facility] Comment on above: Performed By: #### C BC #### [facility] [address] [address] [address] Arsh Nielsen PLT 248 103/ul Normal 150-450 [facility] Comment on above: Performed By: #### C BC #### [facility] [address] [place] [address] Dr. Arsh Nielsen RBC 4.79 106/ul Normal 4.70-6.10 [facility] Comment on above: Performed By: #### C BC #### [facility] [address] [address] [address] Arsh Nielsen WBC 4.6 103/ul Normal 4.0-11.0 [facility] Comment on above: Performed By: #### C BC #### [facility] [address] [place] [address] Dr. Arsh Nielsen GLYCOHEMOGLOBIN A1Con 2021 ADA RECOMMENDATION SEE BELOW Normal [facility] Comment on above: Result Comment: ADA RECOMMENDED LIMIT 4.0 - 6.0 ADA THERAPEUTIC TARGET < 7.0 ACTION SUGGESTED > 7.0 Performed By: #### A 1C #### [facility] [address] [address] [address] Arsh Nielsen Glucose [Mass/Vol] 108 mg/dL Normal [facility] Comment on above: Performed By: #### A 1C #### [facility] [address] [place] [address] Dr. Arsh Nielsen HbA1c (Bld) [Mass fraction] 5.4 % Normal 4.5-6.2 [facility] Comment on above: Performed By: #### A 1C #### [facility] [address] [address] [address] Arsh Nielsen LIPID PROFILEon 08-05-2022 CHOL-HDL RATIO NORM SEE BELOW Normal [facility] Comment on above: Result Comment: 3.3 - 4.4 LOW RISK 4.4 - 7.1 AVERAGE RISK 7.1 - 11.0 MODERATE RISK >11.0 HIGH RISK Performed By: #### C MP, LIPID #### [facility] [address] [address] [address] Arsh Nielsen Cholesterol [Mass/Vol] 157 mg/dL Normal <=200 [facility] Comment on above: Performed By: #### C MP, LIPID #### [facility] [address] [address] [address] Arsh Nielsen Cholesterol in HDL [Mass/Vol] 35 mg/dL Critically low 40-60 [facility] Comment on above: Performed By: #### C MP, LIPID #### [facility] [address] [address] [address] Arsh Nielsen Cholesterol in LDL [Mass/Vol] 98.8 mg/dL Normal [facility] Comment on above: Performed By: #### C MP, LIPID #### [facility] [address] [address] [address] Arsh Nielsen Cholesterol.total/Cho lesterol in HDL [Mass ratio] 4.5 {ratio} Normal [facility] Comment on above: Performed By: #### C MP, LIPID #### [facility] [address] [address] [address] Arsh Nielsen HDL NORMAL > or = 60 mg/dl - LOW CARDIOVASCULAR RISK <40 mg/dl - HIGH CARDIOVASCULAR RISK Normal [facility] Comment on above: Performed By: #### C MP, LIPID #### [facility] [address] [address] [address] Arsh Nielsen LDL CALC NORMAL SEE BELOW Normal [facility] Comment on above: Result Comment: <100 mg/dl OPTIMAL 100 - 129 mg/dl NEAR OR ABOVE OPTIMAL 130 - 159 mg/dl BORDERLINE HIGH 160 - 189 mg/dl HIGH >190 mg/dl VERY HIGH Performed By: #### C MP, LIPID #### [facility] [address] [place] [address] Dr. Arsh Nielsen Triglyceride [Mass/Vol] 116 mg/dL Normal <=150 [facility] Comment on above: Performed By: #### C MP, LIPID #### [facility] [address] [place] [address] Dr. Arsh Nielsen VLDL CALC 23.2 mg/dL Normal [facility] Comment on above: Performed By: #### C MP, LIPID #### [facility] [address] [place] [address] Dr. Arsh Nielsen PROF 14(COMP METB)on 022 Albumin [Mass/Vol] 3.7 g/dL Normal 3.4-5.0 [facility] Comment on above: Performed By: #### C MP, LIPID #### [facility] [address] [place] [address] Dr. Arsh Nielsen Albumin/Globulin [Mass ratio] 1.1 {ratio} Normal [facility] Comment on above: Performed By: #### C MP, LIPID #### [facility] [address] [place] [address] Dr. Arsh Nielsen ALP [Catalytic activity/Vol] 58 U/L Normal 46-116 [facility] Comment on above: Performed By: #### C MP, LIPID #### [facility] [address] [place] [address] Dr. Arsh Nielsen ALT [Catalytic activity/Vol] 18 U/L Normal 16-63 [facility] Comment on above: Performed By: #### C MP, LIPID #### [facility] [address] [place] [address] Dr. rAsh Nielsen Anion gap [Moles/Vol] 9.5 mmol/L Normal [facility] Comment on above: Performed By: #### C MP, LIPID #### [facility] [address] [place] [address] Dr. Arsh Nielsen AST [Catalytic activity/Vol] 16 U/L Normal 15-37 [facility] Comment on above: Performed By: #### C MP, LIPID #### [facility] [address] [address] [address] Arhs Nielsen Bilirubin [Mass/Vol] 0.6 mg/dL Normal 0.2-1.0 [facility] Comment on above: Performed By: #### C MP, LIPID #### [facility] [address] [address] [address] Arsh Nielsen Calcium [Mass/Vol] 9.1 mg/dL Normal 8.5-10.1 [facility] Comment on above: Performed By: #### C MP, LIPID #### [facility] [address] [address] [address] Arsh Nielsen Chloride [Moles/Vol] 107 mmol/L Normal 98-107 [facility] Comment on above: Performed By: #### C MP, LIPID #### [facility] [address] [place] [address] Dr. Arsh Nielsen CO2 [Moles/Vol] 31.2 mmol/L Normal 21.0-32.0 [facility] Comment on above: Performed By: #### C MP, LIPID #### [facility] [address] [place] [address] Dr. Arsh Nielsen Creatinine [Mass/Vol] 0.96 mg/dL Normal 0.70-1.30 [facility] Comment on above: Performed By: #### C MP, LIPID #### [facility] [address] [place] [address] Dr. Arsh Nielsen EGFR-AF MAURITANIAN >60 Normal >=60 [facility] Comment on above: Performed By: #### C MP, LIPID #### [facility] [address] [place] [address] Dr. Arsh Nielsen EGFR-NON AF MAURITANIAN >60 Normal >=60 [facility] Comment on above: Performed By: #### C MP, LIPID #### [facility] [address] [place] [address] Dr. Arsh Nielsen Globulin (S) [Mass/Vol] 3.3 g/dL Normal [facility] Comment on above: Performed By: #### C MP, LIPID #### [facility] [address] [address] [address] Arsh Nielsen Glucose [Mass/Vol] 100 mg/dL Normal 74-106 [facility] Comment on above: Performed By: #### C MP, LIPID #### [facility] [address] [address] [address] Arsh Nielsen Potassium [Moles/Vol] 4.7 mmol/L Normal 3.5-5.1 [facility] Comment on above: Performed By: #### C MP, LIPID #### [facility] [address] [address] [address] Arsh Nielsen Protein [Mass/Vol] 7.0 g/dL Normal 6.4-8.2 [facility] Comment on above: Performed By: #### C MP, LIPID #### [facility] [address] [address] [address] Arsh Nielsen Sodium [Moles/Vol] 143 mmol/L Normal 136-145 [facility] Comment on above: Performed By: #### C MP, LIPID #### [facility] [address] [address] [address] Arsh Nielsen Urea nitrogen [Mass/Vol] 14.0 mg/dL Normal 7.0-18.0 [facility] Comment on above: Performed By: #### C MP, LIPID #### [facility] [address] [address] [address] Arsh Nielsen Urea nitrogen/Creatinine [Mass ratio] 14.6 mg/mg Normal [facility] Comment on above: Performed By: #### C MP, LIPID #### [facility] [address] [address] [address] Arsh Nielsen Office Visiton 07-16-2022 Follow-up visit [id number] Hans Montenegro 1965 M Date Provider Department Center 07/16/2022 ABRAHAM LARA MP ORTHO MPORTHO Family History Family history unknown: Yes Level of Service:74544 [place] OFFICE/OUTPATIENT NEW LOW [facility] 30-44 MINUTES Reason for Visit and Comments: Pain [136] Normal [facility] US SHELDON DOP LEG LTon 07-07-20 22 [...] by: JACE SHARMA Date: 2022-07-07 12:15 Normal [facility] Vital Signs Date Time Vital Sign Value Performing Clinician Ivelisse sandoval 07-24-2024 08:02-0500 Diastolic blood pressure 88 mm[Hg] Callum Cat MD Work Phone: [facility] 07-24-2024 08:02-0500 Heart rate 51 /min Callum Cat MD Work Phone: [facility] 07-24-2024 08:02-0500 Systolic blood pressure 147 mm[Hg] Callum Cat MD Work Phone: [facility] 05-30-2024 09:10-0400 Body height 177.8 cm Abhijit Galicia MD Work Phone: [facility] 05-30-2024 09:10-0400 Body mass index (BMI) [Ratio] 36.59 kg/m2 Abhijit Galicia MD Work Phone: [facility] 05-30-2024 09:10-0400 Body weight 115.67 kg Abhijit Galicia MD Work Phone: [facility] 05-30-2024 09:10-0400 Diastolic blood pressure 102 mm[Hg] Abhijit Galicia MD Work Phone: [facility] Comment on above: nervous 05-30-2024 09:10-0400 Systolic blood pressure 172 mm[Hg] Abhijit Galicia MD Work Phone: [facility] Comment on above: nervous Encounters Encounter Date Encounter Type Care Provider Facility Start: 08-28-2024 End: 08-28-2024 ambulatory CALLUM CAT Facility:[facility] Start: 08-28-2024 End: 08-28-2024 Patient encounter procedure Giselle Armstrong ANIVAL Work Phone: Audiology Comment on above: Sensorineural hearin g loss, bilateral (Primary Dx); Dizziness Start: 07-24-2024 End: 07-24-2024 ambulatory ABHIJIT GALICIA Facility:[facility] Start: 07-24-2024 End: 07-24-2024 Patient encounter procedure Callum Cat MD Work Phone: Otolaryngology Comment on above: Dizziness (Primary D x); Ear pressure, bilateral Start: 05-30-2024 End: 05-30-2024 Orders Only Abhijit Galicia MD Work Phone: Vascular Surgery Comment on above: Allergy, initial enc ounter (Primary Dx) Bilateral carotid ar wilrfed stenosis (Primary Dx) Vertigo [R42] Start: 04-27-2024 Orders Only Nadeen Barlow MD Work Phone: Vascular Surgery Comment on above: Vertigo (Primary Dx) Appointment Start: 04-24-2024 Telephone encounter No One (Historic al) Referring Physician Comment on above: External Referrals/r esources Start: 04-20-2024 Telephone encounter No One (Historic al) Referring Physician Start: 2024 ambulatory NADEEN BARLOW Facility: [facility] Start: 2024 End: 2024 Subsequent hospital visit by physician [facility] (1.5t) [facility] Comment on above: Paresthesia of skin [R20.2] Start: 03-14-2024 End: 03-14-2024 ambulatory Nadeen Barlow [place]: 03-14-2024 End: 03-14-2024 Patient encounter procedure Nadeen Barlow [facility] Start: 02-28-2024 End: 02-29-2024 ambulatory BANDAR MCMANUS Not Available Start: 01-27-2024 End: 01-27-2024 ambulatory BANDAR MCMANUS Not Available Start: 01-12-2024 End: 02-12-2024 ambulatory NADEEN BARLOW [facility] Start: 01-10-2024 End: 01-12-2024 ambulatory NADEEN BARLOW [facility] Start: 01-09-2024 ambulatory [facility] Start: 01-08-2024 End: 01-11-2024 Emergency department patient visit [facility] Start: 01-08-2024 ambulatory [facility] Start: 08-10-2022 Encounter for genera l adult medical examination without abnormal findings DR NADEEN BARLOW [facility] Start: 08-05-2022 End: 08-06-[address] NADEEN BARLOW Facility:[facility] Start: 08-05-2022 End: 08-06-2022 Encounter for general adult medical examination without abnormal findings DR NADEEN BARLOW Facility:[facility] Start: 07-16-2022 End: 07-17-2022 ambulatory ABRAHAM Daxa [facility] Start: 07-07-2022 End: 07-08-[address] NADEEN BARLOW Facility:[facility]1 Procedures Date Procedure Procedure Detail Performing Clinician Start: 08-28-2024 HEARING TEST/AUDIOGRAM Callum Cat MD Work Phone: Start: 05-30-2024 Duplex scan extracra nial art compl bi study Abhijit Galicia MD Work Phone: Start: 08-05-[address] PEYMAN BARLOW Comment on above: Performed By: #### P [facility] #### [facility] [address] [place] [address] Dr. Arsh Nielsen Start: 07-03-2015 Colonoscopy Nadeen Ho y Appendectomy Nadeen Barlow Bone spur of right shoulder Nadeen Barlow Vasectomy Nadeen Barlow Plan of Treatment Date Care Activity Detail Author Start: 2038 RSV Vaccine (1 - 1-dose 75+ series) RSV Vaccine (1 - 1-dose 75+ series) [facility] Start: 08-05-2027 Prostate specific antigen measurement Prostate Cancer Screening Discussion [facility] Start: 07-06-2026 Urine microalbumin profile DTaP,Tdap,Td Vaccine (2 - Td or Tdap) [facility] Start: 11-03-2024 End: 11-03-2024 Patient encounter procedure 11/03/2024 7:00 AM EST Office Visit Audiology [address] [facility] [address] [place] [address] Bryanna Ramesh, AUD [address] [place] [address] dizziness Audiology Comment on above: dizziness Start: 08-28-2024 End: 08-28-2024 Patient encounter procedure 08/28/2024 7:00 AM EST Office Visit Audiology [address] [facility] [address] [place] [address] Giselle Armstrong AUD [address] [facility] [address] [place] [address] dizziness Audiology Comment on above: dizziness Start: 07-24-2024 End: 07-24-2024 Patient encounter procedure 07/24/2024 8:00 AM EST Office Visit Otolaryngology [address] [place] [address] Callum Cat MD [address] [place] [address] Allergy, initial encounter [T78.40XA] Otolaryngology Comment on above: Allergy, initial enc ounter [T78.40XA] Start: 05-30-2024 End: 05-30-2024 Patient encounter procedure 05/30/2024 9:45 AM EDT Office Visit Vascular Surgery [address] [facility] [place] [address] [place] [address] [place], [place] [id number] Carotid artery occlusion - I65.29 (Primary) Vascular Surgery Comment on above: Carotid artery occlu alba - I65.29 (Primary) Start: 05-30-2024 End: 05-30-2024 Patient encounter procedure 05/30/2024 8:30 AM EDT Appointment Vascular Testing [address] [place] [address] Av, [employer] [address] [place] [address] Carotid artery occlusion - I65.29 (Primary) Vascular Testing Comment on above: Carotid artery occlu alba - I65.29 (Primary) Start: 05-14-2024 Covid-19 Vaccine ( season) Covid-19 Vaccine ( season) [facility] Start: 05-14-2024 Covid-19 Vaccine () Covid-19 Vaccine () [facility] Start: 05-14-2024 Influenza vaccination Influenza Vacc ine (#1) [facility] Start: 05-02-2024 End: 05-02-2024 Patient encounter procedure 05/02/2024 12:30 PM EDT Office Visit Vascular Surgery [address] [place] [address] [place] [address] [place] [address] Canceled (CC cx: Equipment, Prep, Appropriateness) Vascular Surgery Comment on above: Canceled (CC cx: Equ ipment, Prep, Appropriateness) Start: 05-14-2023 Covid-19 Vaccine () Covid-19 Vaccine () [facility] Start: 2023 RSV Vaccine (1 - 1-dose 60+ series) RSV Vaccine (1 - 1-dose 60+ series) [facility] Start: 2018 Prostate specific antigen measurement Prostate Cancer Screening Discussion [facility] Start: 2013 Pneumococcal Vaccine : 50+ (1 of 1 - PCV) Pneumococcal Vaccine: 50+ (1 of 1 - PCV) [facility] Start: 2013 Shingrix Vaccine (1 of 2) Shingrix Vaccine (1 of 2) [facility] Start: 2008 Diabetes Screening Diabetes Screenin g [facility] Start: 2008 Screening for malignant neoplasm of colon [facility] Start: 1998 Lipid panel Lipid Screening [facility] Start: 1981 Anxiety Screening Anxiety Screening [facility] Start: 1981 Depression Screening Depression Scre jacqueline [facility] Start: 1981 Hepatitis C screening Hepatitis C Sc master [facility] Start: 1981 HIV screening HIV Screening [facility] End: 07-25-2025 HEARING TEST/AUDIOGRAM HEARING TEST/AUDIOGRAM Audiology Routine Dizziness 1 Occurrences starting 07/24/2024 until 07/25/2025 [facility] Comment on above: 1 Occurrences starti ng 07/24/2024 until 07/25/2025 End: 04-27-2025 US Carotid arteries - bilateral US CAROTID ARTERIES [facility] Lab Routine Vertigo 1 Occurrences starting 04/27/2024 until 04/27/2025 [facility] Work Phone: Comment on above: 1 Occurrences starti ng 04/27/2024 until 04/27/2025 VESTIBULAR TEST BATTERY VESTIBULAR TEST BATTERY Audiology Routine Dizziness Ordered: 07/24/2024 [facility] Work Phone: Comment on above: Ordered: 07/24/2024 Immunizations Immunization Date Immunization Notes Care Provider Uriel hawkins 07-19-2020 influenza virus vaccine, unspecified formulation Mri (1.5t) [facility] 06-15-2019 influenza virus vaccine, unspecified formulation Nadeen Barlow [facility] [place] Payers Date Payer Category Payer Private Health Insurance [id number] 2022 Unknown [id number] 2022 Private Health Insurance [id number] 1965 Unknown [id number] 2.16.84 [id number] 1965 Unknown [id number] 2.16.84 [id number] 1965 Unknown [id number] 2.16.8 [id number] 1965 Unknown [id number] 2.16.8 [id number] 1965 Unknown [id number] 2.16.8 [id number] 1965 Unknown [id number] 2.16.8 [id number] 1963 Unknown [id number] 2.16.8 [id number] 1965 Unknown [id number] 2.16.8 [id number] 1965 Unknown [id number] 2.16.8 [id number] 1965 Unknown [id number] 2.16.84 [id number] 1965 Unknown [id number] 2.16.84 [id number] 1965 Unknown [id number] 2.16.8 [id number] 1959 Unknown [id number] Social History Date Type Detail Facility Start: 07-17-2020 End: 05-30-2024 Tobacco smoking status Never smoked tobacco (finding) [facility] Tobacco smoking status Never [facility] Start: 12-01-2018 End: 2024 Sex Assigned At Male [facility] Tobacco smoking stat [facility] Tobacco smoking consumption unknown [facility] Start: 12-01-2018 End: 2024 History of Social function [facility] Start: 1965 Sex Assigned At Not on file [facility] Start: 05-30-2024 Tobacco use and exposure Smokeless tobacco non-user [facility] Start: 05-30-2024 End: 07-24-2024 Alcoholic beverage intake Ex-drinker (finding) [facility] Goals Date Patient Goal Desired Activity /State Personal health goal Clinical Notes 07-16-2022 to 08-28-2024 Giselle Armstrong AUD - 08/28/2024 7:00 AM Callum Ragland MD - 07/24/2024 8:21 AM Abhijit Johnson MD - 05/30/2024 9:20 AM EDTTelephone Encounter - Stephen Bernardo - 04/27/2024 3:30 PM EDT Note Date & Type Note Facility 08-28-2024 History of Presen t illness Narrative Images from the original note were not included. [facility] Head and Neck Department AUDIOLOGIC EVALUATION REPORT Name: Hans Montenegro [facility]#: [id number] Date of Service: 08/28/2024 Date of : 1965 Age: [age] year old Referred by: Callum Cat MD Referred for: Evaluation of suspected change in hearing, tinnitus, or balance. Referral documented: In an order in [facility] Patient's major complaints: Dizziness/vertigo/imbalance Hans Montenegro was seen for an initial audiologic evaluation with concerns of dizziness.The following history was obtained by way of Hans Montenegro's previous medical record and direct patient interview: Hearing loss: Feels he has difficulty hearing in both ears. Hearing aids: Denied Tinnitus: Bilateral humming that fluctuates in intensity Ear pain: Denied Aural fullness: His ears have felt as if they are plugged and he is unable to pop his ears. Otorrhea: Denied History of ear infections: Denied History of otologic surgeries: Denied Dizziness: In December he had an episode of vertigo that initially lasted a few seconds, but then recurred 15 minutes later lasting almost 24 hours. Now he reports symptoms of being bouncy or mildly drunk with fluctuating symptoms that do not limit daily activities. There are no noted triggers. Symptoms are better since onset. 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 Other concerns: Denied See Audiogram in Procedures Tab for additional reported history and symptoms. Risk of Falls Documentation for over 65 years old: Does not apply IMPRESSIONS RIGHT EAR: Sensorineural hearing loss LEFT EAR: Sensorineural hearing loss Comparison of today's results with previous test results: No previous results available AUDIOLOGIC EVALUATION Following is a brief interpretation of the obtained findings from the audiologic evaluation. Refer to the Auditory Test Record for complete audiometric results. The patient was counseled about the test findings and appropriate audiologic recommendations were made. SUMMARY: Audiogram can be viewed under Procedures Tab OTOSCOPY RIGHT EAR: Otoscopic inspection revealed ear canal was clear with an identifiable cone of light suggesting WNL middle ear system. LEFT EAR: Otoscopic inspection revealed ear canal was clear with an identifiable cone of light suggesting WNL middle ear system. TYMPANOMETRY Description of procedure: This test is an objective evaluation of middle ear function. CPT code: 59935 RIGHT EAR: Normal ME function. LEFT EAR: Normal ME function. ACOUSTIC REFLEXES Description of procedure: This test is an objective measure of auditory and facial nerve pathways. RIGHT EAR PROBE EAR: (ipsi right stimulus ear; contralateral left stimulus ear): Acoustic Reflex Pattern: Did not test Acoustic Reflex Decay (left stimulus ear): Did not test. LEFT EAR PROBE EAR: (ipsi left stimulus ear; contralateral right stimulus ear): Acoustic Reflex Pattern: Did not test Acoustic Reflex Decay (right stimulus ear): Did not test. PURE TONE AUDIOMETRY AND SPEECH TESTING Description of procedure: This test is an objective evaluation hearing sensitivity via air and bone conduction and speech recognition testing. CPT code: 83161 RIGHT EAR: Hearing Sensitivity: Within normal limits through 2000 Hz sloping to moderately-severe sensorineural hearing loss. Word Recognition Score: Excellent (92%). WRS is consistent with hearing sensitivity. Words were presented at 70 dB HL which is above (greater than or equal to 60 dB HL) intensity level for average conversational speech. The NU-6 Word List (25 words) was used. LEFT EAR: Hearing Sensitivity: Within normal limits through 1500 Hz sloping to moderately-severe sensorineural hearing loss. Word Recognition Score: Good (88%). WRS is consistent with hearing sensitivity. Words were presented at 75 dB HL which is above (greater than or equal to 60 dB HL) intensity level for average conversational speech. The NU-6 Word List (25 words) was used. RECOMMENDATIONS * The patient was counseled regarding the need to continue to monitor hearing and have regular hearing assessments. * The patient was counseled regarding benefits/limitations of hearing aids. * Call [phone] to schedule an appointment to assess your need for hearing aids. Request a HAE appointment. * Continue assessment of vestibular and balance system (Vestibular Battery). FABIAN Nolasco Doctor of Audiology (AuD) [employer] Rub[employer] Mixer Giselle Armstrong MA, CCC/A. Sterilizer Machine Operator copied to: Callum Cat MD ALCANTAR Abbrev- iation Definition Degree of hearing sensitivity dB range WNL within normal limits WNL 0 - 20 SNHL sensorineural hearing loss Mild 20-40 CHL conductive hearing loss Moderate 40-55 MHL mixed hearing loss Moderately-Severe 55-70 WRS word recognition score Severe 70-90 ME middle ear Profound 90 + TM tympanic membrane documented in this encounter [facility] 08-28-2024 Note HNO ID: [id number] Author: GISELLE ARMSTRONG AUD Service: ? Author Type: Sterilizer Machine Operator Type: Progress Notes Filed: 08/28/2024 11:22 Note Text: [facility] AUDIOLOGIC EVALUATION REPORT Name: Hans Montenegro [facility]#: [id number] Date of Service: 08/28/2024 Date of : 1965 Age: [age] year old Referred by: Callum Cat MD Referred for: Evaluation of suspected change in hearing, tinnitus, or balance. Referral documented: In an order in [facility] Patient's major complaints: Dizziness/vertigo/imbalance Hans Montenegro was seen for an initial audiologic evaluation with concerns of dizziness.The following history was obtained by way of Hans Montenegro's previous medical record and direct patient interview: Hearing loss: Feels he has difficulty hearing in both ears. Hearing aids: Denied Tinnitus: Bilateral humming that fluctuates in intensity Ear pain: Denied Aural fullness: His ears have felt as if they are plugged and he is unable to pop his ears. Otorrhea: Denied History of ear infections: Denied History of otologic surgeries: Denied Dizziness: In December he had an episode of vertigo that initially lasted a few seconds, but then recurred 15 minutes later lasting almost 24 hours. Now he reports symptoms of being bouncy or mildly drunk with fluctuating symptoms that do not limit daily activities. There are no noted triggers. Symptoms are better since onset. 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 Other concerns: Denied See Audiogram in Procedures Tab for additional reported history and symptoms. Risk of Falls Documentation for over 65 years old: Does not apply IMPRESSIONS RIGHT EAR: Sensorineural hearing loss LEFT EAR: Sensorineural hearing loss Comparison of today's results with previous test results: No previous results available AUDIOLOGIC EVALUATION Following is a brief interpretation of the obtained findings from the audiologic evaluation. Refer to the Auditory Test Record for complete audiometric results. The patient was counseled about the test findings and appropriate audiologic recommendations were made. SUMMARY: Audiogram can be viewed under Procedures Tab OTOSCOPY RIGHT EAR: Otoscopic inspection revealed ear canal was clear with an identifiable cone of light suggesting WNL middle ear system. LEFT EAR: Otoscopic inspection revealed ear canal was clear with an identifiable cone of light suggesting WNL middle ear system. TYMPANOMETRY Description of procedure: This test is an objective evaluation of middle ear function. CPT code: 88275 RIGHT EAR: Normal ME function. LEFT EAR: Normal ME function. ACOUSTIC REFLEXES Description of procedure: This test is an objective measure of auditory and facial nerve pathways. RIGHT EAR PROBE EAR: (ipsi right stimulus ear; contralateral left stimulus ear): Acoustic Reflex Pattern: Did not test Acoustic Reflex Decay (left stimulus ear): Did not test. LEFT EAR PROBE EAR: (ipsi left stimulus ear; contralateral right stimulus ear): Acoustic Reflex Pattern: Did not test Acoustic Reflex Decay (right stimulus ear): Did not test. PURE TONE AUDIOMETRY AND SPEECH TESTING Description of procedure: This test is an objective evaluation hearing sensitivity via air and bone conduction and speech recognition testing. CPT code: 22044 RIGHT EAR: Hearing Sensitivity: Within normal limits through 2000 Hz sloping to moderately-severe sensorineural hearing loss. Word Recognition Score: Excellent (92%). WRS is consistent with hearing sensitivity. Words were presented at 70 dB HL which is above (greater than or equal to 60 dB HL) intensity level for average conversational speech. The NU-6 Word List (25 words) was used. LEFT EAR: Hearing Sensitivity: Within normal limits through 1500 Hz sloping to moderately-severe sensorineural hearing loss. Word Recognition Score: Good (88%). WRS is consistent with hearing sensitivity. Words were presented at 75 dB HL which is above (greater than or equal to 60 dB HL) intensity level for average conversational speech. The NU-6 Word List (25 words) was used. RECOMMENDATIONS * The patient was counseled regarding the need to continue to monitor hearing and have regular hearing assessments. * The patient was counseled regarding benefits/limitations of hearing aids. * Call [phone] to schedule an appointment to assess your need for hearing aids. Request a HAE appointment. * Continue assessment of vestibular and balance system (Vestibular Battery). FABIAN Nolasco Doctor of Audiology (AuD) Foam Rubber Mixer Giselle Armstrong MA, CCC/A. Sterilizer Machine Operator copied to: Callum Cat MD ALCANTAR Abbrev- iation Definition Degree of hearing sensitivity dB range WNL within normal limits WNL 0 - 20 (more content not included)... [facility] 07-24-2024 Note HNO ID: [id number] Author: CALLUM CAT MD Service: ? Author Type: Physician Type: Progress Notes Filed: 07/24/2024 14:47 Note Text: OTOLARYNGOLOGY-HEAD AND NECK SURGERY CC: Hans Montenegro is a 59 year old male who is seen at the request of Dr. Abhijit Galicia for evaluation of dizziness. My findings and recommendations will be communicated to the referring provider via the shared electronic medical record. Assessment: Dizziness (primary encounter diagnosis) Ear pressure, bilateral Plan: - Recommend audiogram - Recommend vestibular battery test - Will call with results of the above testing Callum Cat MD HPI: Mr. Montenegro is a 59 y/o M who presents for evaluation of dizziness. Symptoms have been present intermittently since December. He was told it was a possible inner ear infection. Treated with antibiotics. Seen in the ED and had CT brain, MRI that were normal. Issues with blood pressure being high - started on other medications and then blood pressure dipped too low. Diagnosed with BPPV at one point, did vestibular PT, but didn't feel like that helped. He gets intermittent ear fullness. Reports more sinus issues or allergy issues than he used to have. He is on singulair. No discolored drainage from his nose ALLERGIES No Known Allergies Current Outpatient Medications Medication Sig montelukast (SINGULAIR) 10 mg tablet Take 10 mg by mouth daily at bedtime. cloNIDine HCl (CATAPRES) 0.1 mg tablet Take 0.1 mg by mouth two times a day. CPAP using since 2007 Ledbetter-3 Fatty Acids, FISH OIL, (FISH OIL) 360-1,200 mg cap Take 1 capsule by mouth daily with breakfast. Multivitamin capsule Take 1 capsule by mouth once daily. carvedilol (COREG) 6.25 mg tablet Take 25 mg by mouth two times a day with meals. No current facility-administered medications for this visit. No past medical history on file. No past surgical history on file. Social History: Social History Tobacco Use Smoking status: Never Smokeless tobacco: Never Substance Use Topics Alcohol use: Not Currently Drug use: Never No family history on file. ROS: GENERAL: No weight loss, malaise or fevers. HEENT: See HPI NECK: Negative for lumps, goiter, pain and significant neck swelling RESPIRATORY: Negative for cough, hemoptysis, wheezing or shortness of breath CARDIOVASCULAR: Negative for chest pain, leg swelling or palpitations. GASTROINTESTINAL: No nausea, vomiting, or diarrhea MUSCULOSKELETAL: Negative for joint pain or swelling, back pain or muscle pain. NEUROLOGIC: See HPI SKIN: Negative for lesions, rash, and itching. HEMATOLOGIC/LYMPHATIC/IMMUNOLOG IC: Negative for prolonged bleeding, bruising easily or swollen nodes. ENDOCRINE: Negative for cold or heat intolerance, polyuria, polydipsia and goiter. PHYSICAL EXAM: On physical examination Hans Montenegro is a well-developed, well nourished male. His speech is normal and his voice is strong. Mental status revealed patient to be alert and oriented. Mood is appropriate. Details of the physical examination: HEAD AND FACE: Physical examination of the head, neck, external nose, external ears, mouth and face fails to demonstrate any significant abnormality or asymmetry to critical face to face observation. Skin and scalp are normal. EARS: RT Canal: patent RT Drum: intact RT Pneumotoscopy: mobile LT Canal: patent LT Drum: intact LT Pneumotoscopy: mobile NOSE: Examination of the nasal cavity revealed a septum which is deviated. The mucosa is pink, and the visible turbinates are normal on anterior rhinoscopy. There is no purulence or polyps. MASTICATION: The teeth appear in good condition. The lips and gums are without lesions. ORAL CAVITY AND OROPHARYNX: The oral mucosa, hard and soft palates, tongue, tonsil area, and posterior pharyngeal wall are without lesions. NECK: The neck appears symmetric without scars. On palpation, there are no masses or lymphadenopathy. The thyroid is not palpable and was free of masses. No salivary gland masses or hypertrophy is noted. Callum Cat MD [facility] 07-24-2024 History of Presen t illness Narrative OTOLARYNGOLOGY-HEAD AND NECK SURGERY CC: Hans Montenegro is a 59 year old male who is seen at the request of Dr. Abhijit Galicia for evaluation of dizziness. My findings and recommendations will be communicated to the referring provider via the shared electronic medical record. Assessment: Dizziness (primary encounter diagnosis) Ear pressure, bilateral Plan: - Recommend audiogram - Recommend vestibular battery test - Will call with results of the above testing Callum Cat MD HPI: Mr. Montenegro is a 59 y/o M who presents for evaluation of dizziness. Symptoms have been present intermittently since December. He was told it was a possible inner ear infection. Treated with antibiotics. Seen in the ED and had CT brain, MRI that were normal. Issues with blood pressure being high - started on other medications and then blood pressure dipped too low. Diagnosed with BPPV at one point, did vestibular PT, but didn't feel like that helped. He gets intermittent ear fullness. Reports more sinus issues or allergy issues than he used to have. He is on singulair. No discolored drainage from his nose ALLERGIES No Known Allergies Current Outpatient Medications Medication Sig montelukast (SINGULAIR) 10 mg tablet Take 10 mg by mouth daily at bedtime. cloNIDine HCl (CATAPRES) 0.1 mg tablet Take 0.1 mg by mouth two times a day. CPAP using since 2007 Ledbetter-3 Fatty Acids, FISH OIL, (FISH OIL) 360-1,200 mg cap Take 1 capsule by mouth daily with breakfast. Multivitamin capsule Take 1 capsule by mouth once daily. carvedilol (COREG) 6.25 mg tablet Take 25 mg by mouth two times a day with meals. No current facility-administered medications for this visit. No past medical history on file. No past surgical history on file. Social History: Social History Tobacco Use Smoking status: Never Smokeless tobacco: Never Substance Use Topics Alcohol use: Not Currently Drug use: Never No family history on file. ROS: GENERAL: No weight loss, malaise or fevers. HEENT: See HPI NECK: Negative for lumps, goiter, pain and significant neck swelling RESPIRATORY: Negative for cough, hemoptysis, wheezing or shortness of breath CARDIOVASCULAR: Negative for chest pain, leg swelling or palpitations. GASTROINTESTINAL: No nausea, vomiting, or diarrhea MUSCULOSKELETAL: Negative for joint pain or swelling, back pain or muscle pain. NEUROLOGIC: See HPI SKIN: Negative for lesions, rash, and itching. HEMATOLOGIC/LYMPHATIC/IMMUNOLOG IC: Negative for prolonged bleeding, bruising easily or swollen nodes. ENDOCRINE: Negative for cold or heat intolerance, polyuria, polydipsia and goiter. PHYSICAL EXAM: On physical examination Hans Montenegro is a well-developed, well nourished male. His speech is normal and his voice is strong. Mental status revealed patient to be alert and oriented. Mood is appropriate. Details of the physical examination: HEAD AND FACE: Physical examination of the head, neck, external nose, external ears, mouth and face fails to demonstrate any significant abnormality or asymmetry to critical face to face observation. Skin and scalp are normal. EARS: RT Canal: patent RT Drum: intact RT Pneumotoscopy: mobile LT Canal: patent LT Drum: intact LT Pneumotoscopy: mobile NOSE: Examination of the nasal cavity revealed a septum which is deviated. The mucosa is pink, and the visible turbinates are normal on anterior rhinoscopy. There is no purulence or polyps. MASTICATION: The teeth appear in good condition. The lips and gums are without lesions. ORAL CAVITY AND OROPHARYNX: The oral mucosa, hard and soft palates, tongue, tonsil area, and posterior pharyngeal wall are without lesions. NECK: The neck appears symmetric without scars. On palpation, there are no masses or lymphadenopathy. The thyroid is not palpable and was free of masses. No salivary gland masses or hypertrophy is noted. Callum Cat MD documented in this encounter [facility] 05-30-2024 Note HNO ID: [id number] Author: ABHIJIT GALICIA MD Service: ? Author Type: Physician Type: Progress Notes Filed: 05/30/2024 09:34 Note Text: Heart , Vascular and Thor[facility] [place] DEPARTMENT OF VASCULAR SURGERY OUTPATIENT VISIT DATE May 30, 2024 OUTPATIENT VISIT TYPE CONSULTATION SERVICE DATE: 05/30/2024 SERVICE TIME: 9:20 AM PRIMARY CARE PHYSICIAN: Nadeen Barlow MD REFERRING PROVIDER: Abhijit Galicia [id number] [facility] [place] [address] Consult requested for an opinion regarding the evaluation and treatment of the above. My final impression and recommendations will be communicated back to the requesting physician by way of the shared medical record or letter via [place] mail. CHIEF COMPLAINT: Asymptomatic carotis tenosis HISTORY OF PRESENT ILLNESS: Vascular consultation at the request of Dr. Abhijit Galicia. A copy of this consultation note will be provided to the requesting physician by way of shared Medical record or letter to requesting physician via US mail. Mr. Montenegro is a 59 year old male who is seen today for Asymtptomaitc carotid stenosis No stroke/tia/amaurosis Endorses vertigo, cheng when blood pressure high, but can also occur at normal pressure Sometimes associated w allergies Feels like room is spinning sometimes, but other times it's like blurry vision and has to wear glasses. No past medical history on file. No past surgical history on file. SOCIAL HISTORY: Social History Tobacco Use Smoking status: Never Smokeless tobacco: Never Substance Use Topics Alcohol use: Not Currently Drug use: Never No family history on file. MEDICATIONS: Ledbetter-3 Fatty Acids, FISH OIL, (FISH OIL) 360-1,200 mg cap Take 1 capsule by mouth daily with breakfast. Multivitamin capsule Take 1 capsule by mouth once daily. carvedilol (COREG) 6.25 mg tablet Take 6.25 mg by mouth twice daily with meals. ALLERGIES: ALLERGIES Not on File REVIEW OF SYSTEM: Constitutional: No weight loss, malaise or fevers. HEENT: Negative for frequent or significant headaches Respiratory: Negative for cough, wheezing, or shortness of breath Cardiovascular: Negative for chest pain, leg swelling or palpitations Gatrointestinal: Negative for abdominal discomfort, blood in stools or black stools or change in bowel habits Genitourinary: No history of dysuria, frequency, or incontinence Musculoskeletal: Negative for joint pain or swelling, back pain or muscle pain Endocrine: Negative for cold or heat intolerance, polyuria, polydipsia and goiter Hematology/Lymphatic: Negative for prolonged bleeding, bruising easily or swollen nodes Neurologic: No history or headaches, syncope, paralysis, seizures or tremors Integumentary: Negative for lesions, rash, and itching. PHYSICAL EXAM: VITALS: BP 172/102[nervous[ Ht 5' 10 (1.78m) Wt 255 lb (115.7kg) BMI 36.59 kg/(m2). General: Alert and oriented Integumentary: Normal color, no rash, no lesions. HEENT: EOM, pupils equal, round and reactive. Cardiovascular: Pulse regular. Lungs: No chest deformities or chest wall tenderness. Abdomen: Soft, non-tender, no rigidity. Extremities: No deformity, no edema or tenderness, no joint swelling or clubbing. Neurological: Normal cognition and motor skills. Diagnostic tests reviewed for today's visit: Most recent labs Most recent imaging 05/30/24 MARY 0-19%, LICA 0-19% IMPRESSION: Mr. Montenegro is a 59 year old male asymptomatic carotid tsnoeis . PLAN and RECOMMENDATIONS: Cont optimal medical mgmt Prn fu Referral to ENT SIGNATURE: Abhijit Galicia MD PATIENT NAME: Hans Montenegro DATE: May 30, 2024 TIME: 9:20 AM [facility] 05-30-2024 History of Presen t illness Narrative Images from the original note were not included. Heart , Vascular and Thor[facility] [place] DEPARTMENT OF VASCULAR SURGERY OUTPATIENT VISIT DATE May 30, 2024 OUTPATIENT VISIT TYPE CONSULTATION SERVICE DATE: 05/30/2024 SERVICE TIME: 9:20 AM PRIMARY CARE PHYSICIAN: Nadeen Barlow MD REFERRING PROVIDER: Abhijit Galicia [id number] [facility] [place] [address] Consult requested for an opinion regarding the evaluation and treatment of the above. My final impression and recommendations will be communicated back to the requesting physician by way of the shared medical record or letter via US mail. CHIEF COMPLAINT: Asymptomatic carotis tenosis HISTORY OF PRESENT ILLNESS: Vascular consultation at the request of Dr. Abhijit Galicia. A copy of this consultation note will be provided to the requesting physician by way of shared Medical record or letter to requesting physician via US mail. Mr. Montenegro is a 59 year old male who is seen today for Asymtptomaitc carotid stenosis No stroke/tia/amaurosis Endorses vertigo, cheng when blood pressure high, but can also occur at normal pressure Sometimes associated w allergies Feels like room is spinning sometimes, but other times it's like blurry vision and has to wear glasses. No past medical history on file. No past surgical history on file. SOCIAL HISTORY: Social History Tobacco Use Smoking status: Never Smokeless tobacco: Never Substance Use Topics Alcohol use: Not Currently Drug use: Never No family history on file. MEDICATIONS: Ledbetter-3 Fatty Acids, FISH OIL, (FISH OIL) 360-1,200 mg cap Take 1 capsule by mouth daily with breakfast. Multivitamin capsule Take 1 capsule by mouth once daily. carvedilol (COREG) 6.25 mg tablet Take 6.25 mg by mouth twice daily with meals. ALLERGIES: ALLERGIES Not on File REVIEW OF SYSTEM: Constitutional: No weight loss, malaise or fevers. HEENT: Negative for frequent or significant headaches Respiratory: Negative for cough, wheezing, or shortness of breath Cardiovascular: Negative for chest pain, leg swelling or palpitations Gatrointestinal: Negative for abdominal discomfort, blood in stools or black stools or change in bowel habits Genitourinary: No history of dysuria, frequency, or incontinence Musculoskeletal: Negative for joint pain or swelling, back pain or muscle pain Endocrine: Negative for cold or heat intolerance, polyuria, polydipsia and goiter Hematology/Lymphatic: Negative for prolonged bleeding, bruising easily or swollen nodes Neurologic: No history or headaches, syncope, paralysis, seizures or tremors Integumentary: Negative for lesions, rash, and itching. PHYSICAL EXAM: VITALS: BP 172/102[nervous[ Ht 5' 10 (1.78m) Wt 255 lb (115.7kg) BMI 36.59 kg/(m^2). General: Alert and oriented Integumentary: Normal color, no rash, no lesions. HEENT: EOM, pupils equal, round and reactive. Cardiovascular: Pulse regular. Lungs: No chest deformities or chest wall tenderness. Abdomen: Soft, non-tender, no rigidity. Extremities: No deformity, no edema or tenderness, no joint swelling or clubbing. Neurological: Normal cognition and motor skills. Diagnostic tests reviewed for today's visit: Most recent labs Most recent imaging 05/30/24 MARY 0-19%, LICA 0-19% IMPRESSION: Mr. Montenegro is a 59 year old male asymptomatic carotid tsnoeis . PLAN and RECOMMENDATIONS: Cont optimal medical mgmt Prn fu Referral to ENT SIGNATURE: Abhijit Galicia MD PATIENT NAME: Hans Montenegro DATE: May 30, 2024 TIME: 9:20 AM documented in this encounter [facility] 04-27-2024 Telephone encounter Note Patient called back and both appointments were scheduled for 05/30. [facility] 04-27-2024 Miscellaneous Notes Patient called back and both appointments were scheduled for 05/30. Left patient a message to call back and reschedule 05/[address] Galicia, pt needs a carotid duplex prior to appt. Called Dr. Barlow's office, they will fax referral and order for carotid duplex (scanned in). documented in this encounter [facility] 04-27-2024 Telephone encounter Note Left patient a message to call back and reschedule 05/[address] Galicia, pt needs a carotid duplex prior to appt. Called Dr. Barlow's office, they will fax referral and order for carotid duplex (scanned in). [facility] 04-24-2024 Telephone encounter Note Patient: Hans Montenegro Date of : 1965 Patient phone number: [phone] Referring Provider for the encounter: Nadeen Barlow Requesting Provider: n/a Reason for requesting visit (RFV/signs and symptoms/diagnosis): Carotid Occlusive Disease Person calling: caregiver: Sana Return call to: self Medical Records/Insurance Card scanned into Flyr: Yes Comments: [facility] 04-24-2024 Miscellaneous Notes Patient: Hans Montenegro Date of : 1965 Patient phone number: [phone] Referring Provider for the encounter: Nadeen Barlow Requesting Provider: n/a Reason for requesting visit (RFV/signs and symptoms/diagnosis): Carotid Occlusive Disease Person calling: caregiver: Sana Return call to: self Medical Records/Insurance Card scanned into Epic: Yes Comments: documented in this encounter [facility] 04-20-2024 Telephone encounter Note Patient: Hans Montenegro Date of : 1965 Patient phone number: [phone] Referring Provider for the encounter: Nadeen Barlow Requesting Provider: Vascular Surgery Reason for requesting visit (RFV/signs and symptoms/diagnosis): Carotid Occlusive Disease. Person calling: Kirit Mittal Return call to: Patient Medical Records/Insurance Card scanned into Epic: No Comments: [facility] 04-20-2024 Miscellaneous Notes Patient: Hans Montenegro Date of : 1965 Patient phone number: [phone] Referring Provider for the encounter: Nadeen Barlow Requesting Provider: Vascular Surgery Reason for requesting visit (RFV/signs and symptoms/diagnosis): Carotid Occlusive Disease. Person calling: Kirit Mittal Return call to: Patient Medical Records/Insurance Card scanned into Epic: No Comments: documented in this encounter [facility] 2024 History of Presen t illness Narrative Radiology Service Progress Note PATIENT NAME: Hans Montenegro DATE OF SERVICE: 2024 TIME: 3:54 PM PATIENT IDENTITY VERIFICATION COMPLETED USING TWO (2) IDENTIFIERS: Name and Date of confirmed by patient verbally. FALL SCREENING: Has the patient had 2 falls in the last year or 1 fall with injury or currently using an Ambulatory Assistive Device (Walker, Cane, Wheelchair, Crutches, etc.)? No PATIENT GENDER DATA: Male PATIENT RELEVANT IMPLANT DATA REVIEWED: Yes PATIENT PRESENTS WITH AN IMPLANTABLE OR ATTACHED ASSOCIATE THEATRE PROFESSOR: No RADIOLOGY DEPARTMENT: MR; Exam(s) Completed: Spine: Cervical spine PERIPHERAL IV DATA: Not applicable SIGNED BY: Alina Alvarez RDMS, RVT- Sheila ([email or web address]) 2024 3:54 PM documented in this encounter [facility] 2024 Note HNO ID: [id number] Author: ALINA ALVAREZ RT(R) Service: ? Author Type: Technologist Type: Progress Notes Filed: 2024 15:54 Note Text: Radiology Service Progress Note PATIENT NAME: Hans Montenegro DATE OF SERVICE: 2024 TIME: 3:54 PM PATIENT IDENTITY VERIFICATION COMPLETED USING TWO (2) IDENTIFIERS: Name and Date of confirmed by patient verbally. FALL SCREENING: Has the patient had 2 falls in the last year or 1 fall with injury or currently using an Ambulatory Assistive Device (Walker, Cane, Wheelchair, Crutches, etc.)? No PATIENT GENDER DATA: Male PATIENT RELEVANT IMPLANT DATA REVIEWED: Yes PATIENT PRESENTS WITH AN IMPLANTABLE OR ATTACHED ASSOCIATE THEATRE PROFESSOR: No RADIOLOGY DEPARTMENT: MR; Exam(s) Completed: Spine: Cervical spine PERIPHERAL IV DATA: Not applicable SIGNED BY: Alina Alvarez RDMS, RVT- Sheila ([email or web address]) 2024 3:[address] [facility] 03-14-2024 Note Echocardiology Procedure Exam Date/Time Accession # Ordering Dr. Toure Transthoracic 03/14/2024 08:46 EDT [id number] Nadeen Barlow MD CPT code [id number] Reason for Exam (Echo Transthoracic Complete) R07.9, R55, I95.9 Report Version: 1 Study ID: [id number] [id number] Adult Echocardiogram Report Name: HANS MONTENEGRO Study Date: 03/14/2024, 8: 05 AM Patient [place] [facility] [place] 1965 (MM/DD/YYYY) Gender: Male Age: 58 [...] Signed by: Kadeem Montenegro MD Transcribed by: [facility] Technologist: ZACKARY Seaman [facility] 07-16-2022 Note 57-year-old male see n here [...] report and order an MRI if indicated [facility] Evaluation + Plan note No data available for this section [facility] Evaluation note Diagnosis Vertigo- Primary Dizziness and giddiness [facility] Allergy, initial encounter- Primary [facility] Bilateral carotid artery stenosis- Primary Occlusion and stenosis of carotid artery without mention of cerebral infarction [facility] Diagnosis Vertigo Dizziness and giddiness [facility] Diagnosis Dizziness- Primary Dizziness and giddiness Ear pressure, bilateral [facility] Diagnosis Sensorineural hearing loss, bilateral- Primary Dizziness Dizziness and giddiness [facility] No data available for this section [facility] data available [facility] this section [facility] for referral (narrative)* Outpatient Procedure (Routine) - Authorized Specialty Diagnoses / Procedures Referred By Contac t Referred To Contact [facility] Diagnoses Vertigo Procedures US CAROTID ARTERIES [facility] LAB DUPLEX SCAN EXTRACRANIAL ART [place] [address] [place] [address] [facility] [address] [address] Referral ID Status Reason Start Date Expiration Date Visits Requested Visits Authorized [id number] Authorized Auto-Generat ed Referral 04/27/2024 04/27/2025 1 1 [facility] for referral (narrative)* Outpatient Procedure (Routine) - Closed Specialty Diagnoses / Procedures Referred By Contac t Referred To Contact [facility] Diagnoses Vertigo Procedures US CAROTID ARTERIES SHARMILA VAS LAB DUPLEX SCAN EXTRACRANIAL [place] [address] [place] [address] [facility] [address] [address] Referral ID Status Reason Start Date Expiration Date V isits Requested Visits Authorized [id number] Closed Auto-Generate d Referral 04/27/2024 04/27/2025 1 1 [facility] for visit Narrative* Outpatient Procedure (Routine) - Closed Specialty Diagnoses / Procedures Referred By Contac t Referred To Contact [facility] Diagnoses Vertigo Procedures US CAROTID ARTERIES SHARMILA VAS LAB DUPLEX SCAN EXTRACRANIAL [place] [address] [place] [address] [facility] [address] [address] Referral ID Status Reason Start Date Expiration Date V isits Requested Visits Authorized [id number] Closed Auto-Generate d Referral 04/27/2024 04/27/2025 1 1 [facility] Summary Purpose Family History No Family History Records FoundNo Family History Records FoundNo Family History Records FoundNo Family History Records FoundNo Family History Records Found No data available for this section No Family History Records FoundNo Family History Records FoundNo Family History Records FoundNo Family History Records Found Advance Directives No Advanced Directives Records FoundNo Advanced Directives Records FoundNo Advanced Directives Records FoundNo Advanced Directives Records FoundNo Advanced Directives Records FoundNo Advanced Directives Records FoundNo Advanced Directives Records FoundNo Advanced Directives Records FoundNo Advanced Directives Records Found Reason for Referral Specialty Diagnoses / Procedures [facility] Referred To Contact Procedures HEARING TEST/AUDIOGRAM COMPRE AUDIOMETRY THRESHOLD EVAL SP RECOGNIJ Callum Cat MD [address] [place] [address] [facility] [address] [id number] Referral ID Status Reason Start Date Expiration Date Visits Requested Visits Authorized [id number] New Request Auto-Generat ed Referral 08/29/2025 1 1 Specialty Diagnoses / Procedures [facility] Referred To Contact Diagnoses Dizziness Procedures HEARING TEST/AUDIOGRAM COMPRE AUDIOMETRY THRESHOLD EVAL SP RECOGNIJ Callum Cat MD [address] [place] [address] [facility] [address] [phone] Referral ID Status Reason Start Date Expiration Date Visits Requested Visits Authorized [id number] New Request Auto-Generat ed Referral 10/22/2024 1 1 Specialty Diagnoses / Procedures [facility] Referred To Contact Ent - Otolaryngology Diagnoses Allergy, initial encounter Procedures CONSULT TO ENT OFFICE/OUTPATIENT NEW HIGH MDM 60 [place] [address] [place] [address] [place] [address] [place] [address] Referral ID Status Reason Start Date Expiration Date Visits Requested Visits Authorized [id number] Authorized PCP Requested Referral 05/30/2024 05/30/2025 1 1 Additional Source Comments (unrecognized sect ion and content) No Status Records FoundNo Status Records FoundNo Status Records FoundNo Status Records FoundNo Status Records FoundNo Status Records FoundNo Status Records FoundNo Status Records FoundNo Status Records Found INFORMATION SOURCE (unrecogn ized section and content) DATE CREATED AUTHOR 08/10/2022 [facility] DATE CREATED AUTHOR AUTHOR'S ORGANIZ ATION 05/10/2023 [facility] DATE CREATED AUTHOR AUTHOR'S ORGANIZ ATION 01/14/2024 [facility] DATE CREATED AUTHOR AUTHOR'S ORGANIZ ATION 02/13/2024 [facility] DATE CREATED AUTHOR AUTHOR'S ORGANIZ ATION 03/01/2024 [facility] DATE CREATED AUTHOR AUTHOR'S ORGANIZ ATION 03/15/2024 [facility] DATE CREATED AUTHOR AUTHOR'S ORGANIZ ATION 04/25/2024 [facility] DATE CREATED AUTHOR AUTHOR'S ORGANIZ ATION 05/31/2024 [facility] DATE CREATED AUTHOR AUTHOR'S ORGANIZ ATION 08/29/2024 [facility] Patient Care team informatio n (unrecognized section and content) Retail Manager Relationship Specialty Start Date End Date Nadeen Barlow MD PCP - General Family Medicine 11/08/18 Nadeen Barlow MD Referring Family Medicine 11/08/18 Retail Manager Relationship Specialty Start Date End Date Nadeen Barlow MD PCP - General Family Medicine 11/08/18 Nadeen Barlow MD Referring Family Medicine 11/08/18 Retail Manager Relationship Specialty Start Date End Date Nadeen Barlow MD PCP - General Family Medicine 11/08/18 Nadeen Barlow MD Referring Family Medicine 11/08/18 Retail Manager Relationship Specialty Start Date End Date Nadeen Barlow MD PCP - General Family Medicine 11/08/18 Nadeen Barlow MD Referring Family Medicine 11/08/18 Retail Manager Relationship Specialty Start Date End Date Nadeen Barlow MD PCP - General Family Medicine 11/08/18 Nadeen Barlow MD Referring Family Medicine 11/08/18 Retail Manager Relationship Specialty Start Date End Date Nadeen Barlow MD PCP - General Family Medicine 11/08/18 Nadeen Barlow MD Referring Family Medicine 11/08/18 Retail Manager Relationship Specialty Start Date End Date Nadeen Barlow MD PCP - General Family Medicine 11/08/18 Nadeen Barlow MD Referring Family Medicine 11/08/18 Retail Manager Relationship Specialty Start Date End Date Nadeen Barlow MD PCP - General Family Medicine 11/08/18 Nadeen Barlow MD Referring Family Medicine 11/08/18 Source Comments (unrecognize d section and content) In the event this informatio n is protected by the Federal Confidentiality of Alcohol and Drug Abuse Patient Records regulations: The Federal rules restrict any use of the information to criminally investigate or prosecute any alcohol or drug abuse [facility] the event this information is protected by the Federal Confidentiality of Alcohol and Drug Abuse Patient Records regulations: The Federal rules restrict any use of the information to criminally investigate or prosecute any alcohol or drug abuse patient.[facility] the event this information is protected by the Federal Confidentiality of Alcohol and Drug Abuse Patient Records regulations: The Federal rules restrict any use of the information to criminally investigate or prosecute any alcohol or drug abuse patient.[facility] the event this information is protected by the Federal Confidentiality of Alcohol and Drug Abuse Patient Records regulations: The Federal rules restrict any use of the information to criminally investigate or prosecute any alcohol or drug abuse patient.[facility] the event this information is protected by the Federal Confidentiality of Alcohol and Drug Abuse Patient Records regulations: The Federal rules restrict any use of the information to criminally investigate or prosecute any alcohol or drug abuse patient.[facility] the event this information is protected by the Federal Confidentiality of Alcohol and Drug Abuse Patient Records regulations: The Federal rules restrict any use of the information to criminally investigate or prosecute any alcohol or drug abuse patient.[facility] the event this information is protected by the Federal Confidentiality of Alcohol and Drug Abuse Patient Records regulations: The Federal rules restrict any use of the information to criminally investigate or prosecute any alcohol or drug abuse patient.[facility] CampusIn the event this information is protected by the Federal Confidentiality of Alcohol and Drug Abuse Patient Records regulations: The Federal rules restrict any use of the information to criminally investigate or prosecute any alcohol or drug abuse patient.[facility] CampusIn the event this information is protected by the Federal Confidentiality of Alcohol and Drug Abuse Patient Records regulations: The Federal rules restrict any use of the information to criminally investigate or prosecute any alcohol or drug abuse patient.[facility] CampusIn the event this information is protected by the Federal Confidentiality of Alcohol and Drug Abuse Patient Records regulations: The Federal rules restrict any use of the information to criminally investigate or prosecute any alcohol or drug abuse patient.[facility] CampusIn the event this information is protected by the Federal Confidentiality of Alcohol and Drug Abuse Patient Records regulations: The Federal rules restrict any use of the information to criminally investigate or prosecute any alcohol or drug abuse patient.[facility] Reason for Visit (unrecogniz ed section and content) Specialty Diagnoses / Procedures Referred By Contac t Referred To Contact [facility] Diagnoses Paresthesia of skin mri cspine wo con r20.2 paresthesia of upper limb nadeen arellano md order in scanned docs Procedures MRI SPINAL CANAL CERVICAL W/O CONTRAST MATRL MRI WO DAMIAN B 300 ALL Nadeen Barlow MD [address] [place] [address] [facility] [address] [place] [address] Referral ID Status Reason Start Date Expiration Date Visits Re quested Visits Authorized [id number] Closed 2024 07/17/2024 1 1 Reason Comments External Referrals/resources Reason Comments Appointment Reason Comments New Patient Specialty Diagnoses / Procedures Referred By Contac t Referred To Contact Vascular Surgery / VASCULAR SURGERY Diagnoses Carotid artery occlusion Carotid artery occlusion - I65.29 (Primary) Procedures OFFICE/OUTPATIENT ESTABLISHED MOD MDM 30 MIN NEW/[place] [address] [place] [address] [place] [address] [place] [address] Referral ID Status Reason Start Date Expiration Date Visits Re quested Visits Authorized [id number] Closed 05/30/2024 09/12/2024 1 1 Reason Comments New Patient C/o ear blockage, si nus concern? Vascular, Dr. Lo. Referred to ENT. Onset: approx December 2023 after bout of vertigo. present. Specialty Diagnoses / Procedures Referred By Contac t Referred To Contact Ent - Otolaryngology Diagnoses Allergy, initial encounter Procedures CONSULT TO ENT OFFICE/OUTPATIENT NEW HIGH MDM 60 [place] [address] [place] [address] Callum Cat MD [address] [place] [address] Referral ID Status Reason Start Date Expiration Date V isits Requested Visits Authorized [id number] Closed PCP Requested Referral 05/30/2024 05/30/2025 1 1 Reason Comments Dizziness Specialty Diagnoses / Procedures Referred By Contac t Referred To Contact Audiology / AUDIOLOGY Diagnoses dizziness Procedures ADULT AUDIOGRAM Callum Cat MD [address] [place] [address] Giselle Armstrong, AUD [address] [place] [address] Referral ID Status Reason Start Date Expiration Date V isits Requested Visits Authorized [id number] Authorized 09/13/2023 09/12/2024 99 99 FOR RECORDS PERTAINING TO PATIENTS WHO ARE [...] BE BASED ON THE PRIMARY CLINICAL RECORDS. [facility]. provides no warranty or guarantee of the accuracy or completeness of information in this document.
[2024-09-04 10:35] LABS: Prostate Specific Antigen Scrn 0.81 ng/mL (<=4.00)
[2024-09-04 10:37] LABS: Alanine Aminotransferase 20 U/L (16-63); Albumin Level 3.4 g/dL (3.4-5.0); Alkaline Phosphatase 51 U/L (46-116); Anion Gap 11.7; Aspartate Amino Transferase 14 U/L (15-37); BUN Creatinine Ratio 16.8; Bilirubin Total 0.7 mg/dL (0.2-1.0); Calcium 8.7 mg/dL (8.5-10.1); Carbon Dioxide 26.6 mmol/L (21.0-32.0); Chloride 107 mmol/L (98-107); Chol HDL Ratio 4.5; Cholesterol 198 mg/dL (<=200); Estimated GFR (African America >60 (>=60 mL/min/1.73m^2); Estimated GFR (Non-African Ame >60 (>=60 mL/min/1.73m^2); Free T3 2.57 pg/mL (2.18-3.98); Globulin 3.3 g/dL; Glucose 108 mg/dL (74-106); HDL Cholesterol 44 mg/dL (40-60); LDL Cholesterol Calculated 131.2 mg/dL; Potassium 4.3 mmol/L (3.5-5.1); Sodium 141 mmol/L (136-145); Thyroid Stimulating Hormone 1.345 uIU/mL (0.358-3.740); Total Protein 6.7 g/dL (6.4-8.2); Triglycerides 114 mg/dL (<=150); VLDL CHOLESTEROL 22.8 mg/dL
[2024-09-04 11:17] LABS: Estimated Average Glucose 105 mg/dL; Glycohemoglobin A1C 5.3 % (4.5-6.2)
== END 2024-09-04 09:20 | disposition home or self-care (01) ==
LOC: LAB 09:20
PROVIDERS: PCP Family Medicine; Visit Provider Family Medicine
DX: Z00.00 Encounter for general adult medical examination without abnormal findings (principal)
CPT/HCPCS: 36415; 80053; 80061; 83036; 83525; 84436; 84443; 84481; 85025; G0103

== ENCOUNTER 2025-09-11 09:38 | Outpatient (OUT) | payer OTHER, SELFPAY ==
--- OUTSIDE RECORDS SUMMARY | 2024-10-12 10:15 | XMS_ITS ---
Author Organization [facility] in [place] Address [address] [place] [address] Care Team Providers Care Warping Machine Operator Name Role Phone Bert Barlow Primary Care Provider REASON FOR VISIT SICK Encounters Encounter Location Date Provider Diagnosis [facility] [address] [place] [address] 10/12/2024 Bert Barlow Plan Of Treatment No Information Progress Notes * Hans MONTENEGRO NDOB:1965 (60 yo M)Acc No.[id number]:10/12/2024 UNLOCKED PROGRESS NOTE Progress Note Patient: Hans AGRAWAL :?Francisco Barlow (TTC), MDDOB:1965???Age: 59 Y???Sex:MaleDate:10/12/2024Phone:[phone]:[address] Subjective: * Chief Complaints: * 1 . SICK. * Medical History: Objective: * Vitals: Assessment: Plan: * Treatment: * * Electronic signature of Bert Barlow MD, [id number] on 09/11/2025 at 09:40 AM EST Sign off status: PendingVisit Status:?CANCPHONE (Cancelled Phone) * Provider: Mike Barlow MD (TTC) Date: 0 10/12/2024 Generated for Printing/Faxing/eTransmitting on:?09/11/2025 09:40 AM EST
--- OUTSIDE RECORDS SUMMARY | 2025-09-10 03:30 | XMS_ITS ---
Author Organization [facility] in [place] Address [address] [place] [address] Care Team Providers Care Blacking Machine Operator Name Role Phone Bert Barlow Primary Care Provider Allergies No Known Allergies REASON FOR VISIT yearly- due for yearly labs as well Medications Medication SIG (Take, Route, Frequency, Duration) Notes Start Date End Date Status cloNIDine HCl 0.1 MG 1 tablet Orally twice DAILY ; Duration: 14 days ActiveCPAPvariable pressureActiveTerbinafine HCl 250 MG1 tablet Orally Once a day; Duration: 30 days09/10/2025tiveCPAP Supplies -Mask and Yswvbr5109/04/2024 ActiveCarvedilol 25 MGTAKE 1 TABLET BY MOUTH TWICE A DAY WITH FOOD; Duration: 30 ActiveCPAP -CPAP - use as directed - variable pressure - repair or replace; Duration: 1 daysActive Social History Tobacco Use: Social History Observation Description Date Details (start date - stop date) Never Smoker NA - NA Tobacco Use/Smoking Question Answer Notes Patient is a nonsmoker Tobacco Control (Standard) Question Answer Notes Tobacco use: Nonsmoker Vital Signs Blood pressure systolic 142 mm Hg 09/10/20 25 Blood pressure diastolic 90 mm Hg 025 Height 70 in 09/10/2025 Weight 261.8 lbs 09/10/2025 BMI 37.56 kg/m2 09/10/2025 Encounters Encounter Location Date Provider Diagnosis [facility] [address] [place] [address] 09/10/2025 Bert Barlow Well adult Z00.0 0 Assessments Encounter Date Diagnosis (ICD Code) Assessment Notes Treatment Notes Treatment Clinical Notes Section Notes 09/10/2025 Well adult (ICD-10 - Z00.00) Plan Of Treatment Medication Medication Name Sig Start Date Stop Date Notes cloNIDine HCl 0.1 MG 1 tablet Orally twice DAILY ; Duration: 14 days Terbinafine HCl 250 MG1 tablet Orally Once a day; Duration: 30 days09/10/2025 Carvedilol 25 MGTAKE 1 TABLET BY MOUTH TWICE A DAY WITH FOOD; Duration: 30 Pending Test Test Name Order Date HEMOGLOBIN A1C (GLYCO) 09/10/2025 INSULIN, TOTAL 09/10/2025 LIPID PANEL (CHOL/TRIG/HDL/LDL) 09/10/20 25 URIC ACID 09/10/2025 THYROID PANEL (T4/TSH/FREE T3) PSA, SCREENING 09/10/2025 CMP (COMP MET QUINONES) w/eGFR CKD-EPI 2024 CBC WITH DIFF 09/10/2025 Progress Notes * Hans MONTENEGRO NDOB:1965 (60 yo M)Acc No.[id number]:09/10/2025 UNLOCKED PROGRESS NOTE Progress Note Patient: Hans AGRAWAL N :?Francisco Barlow ([facility]), MDDOB:1965???Age: 60 Y???Sex:MaleDate:09/10/2025Phone:[phone]:[address] [place], [place] [address]Check In:08:23 AM ESTCheck Out:09:20 AM EST Subjective: * Chief Complaints: * 1 . Yearly- due for yearly labs as well. * HPI: ???General:?sleep apnea - CPAP - mayneed new machine - OD and giving warnings end of life - sanchez use daily HTN - good at home. * ROS: ???EENT:?hearing changes?denies.?visual changes?denies. non-healing mouth sores?denies.?swollen glands or neck lumps?denies.?hoarseness?denies.?sore throat?denies.?difficulty swallowing?denies.?nose bleeds?denies.?nasal congestion?denies.?ear ache?denies.?ear discharge denies.?ringing in ears?denies.?light sensitivity?denies.?eye pain?denies.?blurring?denies.?eye irritation?denies.?double vision?denies. vision loss?denies.?General/Constitutional:?Sweats:?Denies.?Fatigue?denies.?Sleep proble ms?denies.?Anorexia?denies.?Malaise?denies.?Weight loss?denies. Fatigue or Weakness?denies.?Fever or Chills?denies.?Cardiovascular:?Shortness of Breath w/lying flat?denies.?Lightheadedne ss/dizziness?denies.?Chest tightness/ heavy pressure?denies.?Swelling of legs, a nkles, or feet?denies.?Waking up with shortness of breath?denies.?Chest pain&#16 0;denies.?Palpitations?denies.?Weight gain?denies.?Respiratory:?Chronic or frequent cough?denies.?Coughing up blood&#1 60;denies.?Difficulty breathing?denies.?Productive cough?denies.?Snoring&#1 60;denies.?Shortness of breath that awakens from sleep (PND)?denies.?Chest pain? denies.?Sputum production?denies.?Wheezing?denies.?Musculoskeletal:?Joint pain?denies.?Joint Fluid?denies.?Backpain?denies.?Knee pain?denies.?Neck pain?denies.?Joint Stiffness?denies.?Muscle cramps?denies.?Weakness of muscles?denies.?Arthritis?denies.?Muscle aches?denies.?Pain in shoulder(s)?denies.?Swollen joints?denies.? * Medical History: D iverticulosis, Lichen planus, Eczema, Insomnia, Knee osteoarthritis, Sleep apnea, Colitis, Migraine headache, Spondylosis of cervical spine, Cervical spondylosis, Anxiety. * Surgical History: V ASECTOMY , APPENDECTOMY , Right Shoulder surgery . * Hospitalization/Major Diagno stic Procedure: v ertigo, HTN 01/04. * Family History: F ather: 80 yrs, colon cancer. M other: alive, Alzheimers, sleep apnea. S ister(s): alive. D maribel(s): alive. 1 sister(s) . 2 daughter(s) - healthy. . * Social History: ???Tobacco Use:?Tobacco Control (Standard)?Tobacco use:?Nonsmoker ?Tobacco Use/Smoking?Patient is a?nonsmoker * Medications: T aking Carvedilol 25 MG Tablet TAKE 1 TABLET BY MOUTH TWICE A DAY WITH FOOD , Taking cloNIDine HCl 0.1 MG Tablet 1 tablet Orally twice DAILY , Taking CPAP - CPAP - use as directed - variable pressure - repair or replace , Taking CPAP , Notes to Pharmacist: variable pressure, Taking CPAP Supplies - - Mask and Tubing , Discontinued Aspirin Low Dose(Aspirin) 81 MG Tablet Delayed Release 1 tablet Orally Once a day , Discontinued Diclofenac Sodium 75 mg Tablet Delayed Release TAKE ONE TABLET BY MOUTH TWICE A DAY , Medication List reviewed and reconciled with the patient * Allergies: N .K.D.A. Objective: * Vitals: W t:261.8lbs, Ht: 70 in, BP:142/90mm Hg, BMI:37.56Index, Ht-cm: 177.8 cm, Wt-k.75 kg. * Examination: ???Physical Exam: ?GENERAL:?well developed, well nourished, in no acute distress.?HEAD:?normocephalic/atraumatic.?EYES:?pupils equal, round and reactive to light, conjunctivae and sclerae normal.?EARS:?no deformity or lesion of external ear, canals and TM appear normal bilaterally, TM's intact, not inflamed with normal light reflex, hearing grossly normal to conversational speech.?NOSE:?no deformity, discharge, inflammation, or lesions. ?MOUTH:?mucous membranes moist, normal oropharynx and posterior pharynx without lesions or exudates, tongue normal, dentition normal.?NECK:?neck supple, no masses or palpable cervical nodes, trachea midline, thyroid without nodules, masses, tenderness, or enlargement.?CHEST:?no chest wall deformity, no chest wall tenderness. ?LUNGS:?normal respiratory effort and clear to auscultation, no wheezes, rales, or rhonchi, good air exchange.?CARDIO:?regular rate and rhythm, normal S1 and S2, nor murmur, rub, or gallop.?PULSES:?normal capillary refill.?ABDOMEN:?soft, non-distended, non-tender, no masses.?MUSCULOSKELETAL:?no deformity or scoliosis noted, normal range of motion, joints normal, no erythema, edema, effusion, or ecchymosis.?EXTREMITY:?no clubbing, cyanosis, edema, or deformity withnormal ROM in both upper and lower bilateral extremities.?NEUROLOGIC:?grossly normal.?SKIN:?no rashes, ulcerations, or suspicious lesions.?LYMPH NODES:?no cervical adenopathy, nodes normal.?MENTAL STATUS:?alert and oriented x3, normal mood and affect.? Assessment: * Assessment: 1.?Well adult - Z00.00 (Primary)??? Plan: * Treatment: Refill Carvedilol Tablet, 25 MG, TAKE 1 TABLET BY MOUTH TWICE A DAY WITH FOOD, 30, 60 Tablet, Refills 0;?Refill cloNIDine HCl Tablet, 0.1 MG, 1 tablet, Orally, twice DAILY, 14 days, 14, Refills 3;?Start Terbinafine HCl Tablet, 250 MG, 1 tablet, Orally, Once a day, 30 days, 30 Tablet, Refills 2.?LAB: HEMOGLOBIN A1C (GLYCO) ?LAB: INSULIN, TOTAL ?LAB: LIPID PANEL (CHOL/TRIG/HDL/LDL) ?LAB: URIC ACID ?LAB: THYROID PANEL (T4/TSH/FREE T3) ?LAB: PSA, SCREENING ?LAB: CMP (COMP MET QUINONES) w/eGFR CKD-EPI ?LAB: CBC WITH DIFF * Preventive Medicine: ??Screenings/Counseling:?BMI ACTION PLAN?Above Normal BMI Follow-up?Dietary management education, guidance, and counseling * * Electronic signature of Bert Barlow MD, [id number] on 09/11/2025 at 09:41 AM EST Sign off status: PendingVisit Status:?CHK (Check Out) * Provider: Mike Barlow (TTC)MD Date: 1 Generated for Printing/Faxing/eTransmitting on:?09/11/2025 09:41 AM EST History and Physical Notes * HPI (History of Present Illness) CategorySub-CategoryDetailNotesCategory NotesGeneral sleep apnea - CPAP - mayneed new machine - OD and giving warnings end of life - sanchez use daily HTN - good at home Examination CategorySub-CategoryDetailNotesCategory NotesPhysical ExamGENERAL:well developed, well nourished, in no acute distressHEAD:normocephalic/atraumatic EYES:pupils equal, round and reactive to light, conjunctivae and sclerae normal EARS:no deformity or lesion of external ear, canals and TM appear normal bilaterally, TM's intact, not inflamed with normal light reflex, hearing grossly normal to conversational speechNOSE:no deformity, discharge, inflammation, or lesionsMOUTH:mucous membranes moist, normal oropharynx and posterior pharynx without lesions or exudates, tonguenormal, dentition normalNECK:neck supple, no masses or palpable cervical nodes, trachea midline, thyroid without nodules, masses, tenderness, or enlargementCHEST:no chest wall deformity, no chest wall tendernessLUNGS:normal respiratory effort and clear to auscultation, no wheezes, rales, or rhonchi, good air exchangeCARDIO:regular rate and rhythm, normal S1 and S2, nor murmur, rub, or gallopPULSES:normal capillary refillABDOMEN:soft, non-distended, non-tender, no massesRECTAL:MUSCULOSKELETAL:no deformity or scoliosis noted, normal range of motion, joints normal, no erythema, edema, effusion, or ecchymosisEXTREMITY:no clubbing, cyanosis, edema, or deformity with normal ROM in both upper and lower bilateral extremitiesNEUROLOGIC:grossly normalSKIN:no rashes, ulcerations, or suspicious lesionsLYMPH NODES:no cervical adenopathy, nodes normalMENTAL STATUS:alert and oriented x3, normal mood and affect
--- OUTSIDE RECORDS SUMMARY | 2025-09-11 09:40 | XMS_ITS | Clinical Summary ---
Author Organization [facility] Address [address] [place] [address] Care Team Providers Care Emergency Room Doctor Name Role Phone Francisco Barlow MD Primary Care Provider [phone] Francisco Barlow MD Unavailable [phone] Allergies No known active allergies Medications MedicationSigDispense QuantityRefillsLast FilledStart DateEnd DateStatus Patterson-3 Fatty Acids, FISH OIL, (FISH OIL) 360-1,200 mg cap Take 1 capsule by mouth daily with breakfast.Active Multivitamin capsule Take 1 capsule by mouth once daily.Active carvedilol (COREG) 6.25 mg tablet Take 25 mg by mouth two times a day with meals.Active montelukast (SINGULAIR) 10 mg tablet Take 10 mg by mouth daily at bedtime.Active cloNIDine HCl (CATAPRES) 0.1 mg tablet Take 0.1 mg by mouth two times a day.4Active CPAP using since 2008Active Active Problems ProblemNoted DateDiagnosed DateObesity, Class II, BMI 35-39.9012/01/2018 Social History Tobacco UseTypesPacks/DayYears UsedDateSmoking Tobacco: NeverSmokeless Tobacco: Never Tobacco Cessation:Counseling Given: Not Answered Alcohol UseStandard Drinks/WeekCommentsNot Currently0 (1 standard drink = 0.6 oz pure alcohol)PHQ-2AnswerDate RecordedPHQ-2 cfgwv856Area Deprivation IndexAnswerDate RecordedNational Score (1-100), lower number is lower risk60 2024State Score (1-10), lower number is lower usiz983ata from: https://www.neighborhoodatlas.medicine.[facility]/. Last address used for [address] [place] [address]/19/2024Sex and Gender InformationValueDate RecordedSex Assigned at BirthNot on fileLegal HcvJvyo9611/08/2018 9:41 AM EST Gender IdentityNot on fileSexual OrientationNot on file Last Filed Vital Signs Vital SignReadingTime TakenCommentsBlood Yaewryiq744/8807/24/2024 8:02 AM EST Pbrsa106307/24/2024 8:02 AM ESTTemperature--Respiratory Rate--Oxygen Saturation-- Inhaled Oxygen Concentration--Anlbbc065.7 kg (255 lb)05/30/2024 9:10 AM EDT Qmhmek258.8 cm (5' 10 )05/30/2024 9:10 AM EDTBody Mass Index36.59005/30/2024 9:10 AM EDT Plan of Treatment Health MaintenanceDue DateLast DoneCommentsAnxiety Jgjmpqhvf54/07/1981Depression Vjsgfbftb23/07/1981HIV Mwurgmczx65/07/1981Hepatitis C Trpktmxws75/07/1981Lipid Bglyppxzb65/07/1998CT Ydnfaqtqipjh00/07/2008Cologuard (FIT-DNA)2008 Wbogzwfrawl77/07/2008Colorectal Cancer Ucnfmoinh13/07/2008Diabetes Screening 2008Fecal Occult Blood04/19/20082056Zditxwxvkrpza22/07/2008Pneumococcal Vaccine: 50+ (1 of 1 - PCV)2013Shingrix Vaccine (1 of 2)2013Covid-19 Vaccine (1 - season)2025Influenza Vaccine (#1)2025 07/19/2020, 07/15/2020, 06/15/2019DTaP,Tdap,Td Vaccine (2 - Td or Tdap) Prostate Cancer Screening Bdysvjegfe032RSV Vaccine (1 - 1-dose 75+ series)2038 Goals GoalPatient Goal TypeAssociated ProblemsRecent ProgressPatient-Stated?Author Blood Pressure < 130/80 Blood Qvxaqmfl444/88(07/24/2024 8:02 AM EST)Abhijit Lopes MD Insurance Care Teams Team MemberRelationshipSpecialtyStart DateEnd Francisco Barlow MD PCP - GeneralFamily Medicine11/08/18 Francisco Barlow MD ReferringFamily Medicine11/08/18
--- OUTSIDE RECORDS SUMMARY | 2025-09-11 09:40 | XMS_ITS | Clinical Summary ---
Author Organization [facility] Address [id number] [address] [place] [address] Care Team Providers Care Fruit Cutter Name Role Phone Francisco Barlow MD Primary Care Provider [phone] Social History Tobacco UseTypesPacks/DayYears UsedDateSmoking Tobacco: Never AssessedChildcare AnswerDate VarhxbglSzasqabafVgtrcsb04/06/2019EmploymentAnswerDate Recorded HqpougiqhlQnwkihi42/06/2019Sex and Gender InformationValueDate RecordedSex Assigned at FfzsqAxcq55/09/2024 7:26 AM EDTLegal ZkePsqv12/14/2016 1:17 PM EST Gender NemgthlhMkva72/09/2024 7:26 AM EDTSexual LuovdtrefnlFylvwavl45/09/2024 7:26 AM EDT Plan of Treatment Health MaintenanceDue DateLast DoneCommentsDepression Psfmjgpfe53/07/1975Tobacco Czfukbskt91/07/1975Adult BMI Mqbzjjzac08/07/1981Zoster (Shingles) Vaccine (1 of 2)2013Influenza Hkwnjhi90/01/79089509/18/2019, 07/15/2020DTaP,Tdap and Td Vaccines (2 - Td or Tdap)RSV ( or age 60+ yrs) (1 - 1-dose 75+ series)2038 [employer] Not on file Insurance Care Teams Team MemberRelationshipSpecialtyStart DateEnd Francisco Barlow MD PCP - GeneralFamily Medicine01/11/24
--- OUTSIDE RECORDS SUMMARY | 2025-09-11 09:40 | XMS_ITS | Clinical Summary ---
Author Organization [facility] Address [address] [place] [address] Care Team Providers Care Adapted Physical Education Aide Name Role Phone Unavailable Primary Care Provider Unavailabl e Allergies No known active allergies Medications MedicationSigDispense QuantityRefillsLast FilledStart DateEnd DateStatus cloNIDine (Catapres) 0.2 MG tablet Take 0.2 mg by mouth in the morning and 0.2 mg before bedtime.01/24/2024ctive carvedilol (Coreg) 25 MG tablet Take 25 mg by mouth in the morning and 25 mg before bedtime.01/10/2024ctive Aspirin Low Dose 81 MG EC tablet Take 81 mg by mouth Daily01/10/2024ctive hydrOXYzine HCl (Atarax) 10 MG tablet Indications:VertigoTake 1 tablet (10 mg) by mouth at bedtime 30 tablet ctive hydroCHLOROthiazide (HYDRODiuril) 12.5 MG tablet Indications:VertigoTake 1 tablet (12.5 mg) by mouth Daily 30 tablet ctive montelukast (Singulair) 10 MG tablet Indications:Benign paroxysmal positional vertigo of right earTake 1 tablet (10 mg) by mouth at bedtime 30 tablet 11004/03/2024ctive Active Problems ProblemNoted DateDiagnosed DatePressure in chest01/27/20243017Ljdviad77/16/2024 Chronic maxillary /16/2024Localized osteoarthritis of left knee 07/16/2022besity, Class II, BMI 35-39.903/ Family History Medical HistoryRelationNameCommentsColon cancerFatherAlzheimer's diseaseMother Sleep apneaMotherRelationNameStatusCommentsFatherDeceasedMotherAliveSisterAlive Social History Tobacco UseTypesPacks/DayYears UsedDateSmoking Tobacco: NeverSmokeless Tobacco: Never Tobacco Cessation:Counseling Given: Not Answered Alcohol UseStandard Drinks/WeekCommentsNever0 (1 standard drink = 0.6 oz pure alcohol)Sex and Gender InformationValueDate RecordedSex Assigned at BirthMale 01/27/2024 7:56 AM EDTLegal TubUsjc6711/25/2022 6:37 PM EDTGender IdentityMale 01/27/2024 7:56 AM EDTSexual OrientationNot on file Last Filed Vital Signs Vital SignReadingTime TakenCommentsBlood Bvjdigqo662/8602/28/2024 3:55 PM EDT Pulse--Temperature--Respiratory Rate--Oxygen Saturation--Inhaled Oxygen Concentration--Oihsud959 kg (264 lb)02/28/2024 3:55 PM HONCbcdrp683.5 cm (5' 8.3 )02/28/2024 3:55 PM EDTBody Mass Index39.7902/28/2024 3:55 PM EDT Plan of Treatment Not on file Insurance * Guarantor: Hans Montenegro NAccount TypeRelation to PatientDate of BirthPhone Billing AddressPersonal/PtyzjsNgfs1965 [address] [address] [place] [address]
--- OUTSIDE RECORDS SUMMARY | 2025-09-11 09:40 | XMS_ITS | Patient Health Record ---
Author Organization [facility] in [place] Address [address] [place] [address] Care Team Providers Care Ladle Repairman Name Role Phone Bert Barlow Primary Care Provider Allergies No Known Allergies Reason For Referral No Information Medications Medication SIG (Take, Route, Frequency, Duration) Notes Start Date End Date Status CPAP - CPAP - use as direct ed - variable pressure - repair or replace; Duration: 1 days ActiveCPAPvariable pressureActiveTerbinafine HCl 250 MG1 tablet Orally Once a day; Duration: 30 days5ActiveCPAP Supplies -Mask and Oihxzj0509/04/2024 ActivecloNIDine HCl 0.1 MG1 tablet Orally twice DAILY; Duration: 90 daysActive Carvedilol 25 MGTAKE 1 TABLET BY MOUTH TWICE A DAY WITH FOOD Twice a day; Duration: 90 daysActive Social History Tobacco Use: Social History Observation Description Date Details (start date - stop date) Never Smoker NA - NA Tobacco Use/Smoking Question Answer Notes Patient is a nonsmoker Alcohol Screen (Audit-C) Question Answer Notes Did you have a drink containing alcohol in the p ast year? No Tmzltr7VxjsmjpkllrprkGwoohbyhPwqnvad Control (Standard) Question Answer Notes Tobacco use: Nonsmoker AUDIT-C (Standard) Question Answer Notes Did you have a drink containing alcohol in the p ast year? No Uwjdnr2IiqzjpjeeobtsjQxpswefh Problems Problem Type SNOMED Code ICD Code Onset Dates Problem Status W/U Status Risk Notes Problem Chest pain (83253217) Chest pain (R07.9) ActiveconfirmedProblemHypotension (22391039)Hypotension (I95.9)Activeconfirmed ProblemSleep apnea (27066808)Sleep apnea (G47.30)ActiveconfirmedProblemVertigo (307779974)Vertigo (R42)ActiveconfirmedProblemGeneralized anxiety disorder (20911153)SALAS (generalized anxiety disorder) (F41.1)ActiveconfirmedProblemWell adult (615199009)Well adult (Z00.00)ActiveconfirmedProblemPressure in Chest (90815676)Chest pressure (R07.89)ActiveconfirmedProblemNear syncope (148069034) Near syncope (R55)ActiveconfirmedProblemCarotid artery occlusion (226432654) Carotid artery occlusion (I65.29)ActiveconfirmedProblemParesthesia of upper limb (51626077)Paresthesia of upper limb (R20.2)ActiveconfirmedProblemEssential hypertension (22343979)BP (high blood pressure) (I10)Activeconfirmed Vital Signs Blood pressure diastolic 90 mm Hg 09/10/2025 Selsgt28 in09/10/2025lood pressure ymfcouft445 mm Hg09/10/20258629Eqtxdv495.8 lbs 09/10/2025BMI37.56 kg/m209/10/2025 Encounters Encounter Location Date Provider Diagnosis [facility] [address] [place] [address] 09/10/2025 Bert Hoy Well adult Z00.0 0 [facility] [address] [place] [address] 09/28/2024 Bert Hoy Well adult Z00.0 0 [facility] [address] [place] [address] 10/05/2024 Bert Hoy Well adult Z00.0 0 [facility] [address] [place] [address] 08/17/2025 Bert Hoy [facility] [place] [address] 09/10/2025[facility]00.00[facility] [place] [address] [address] [facility] [place] [place] [address]Bert TruCong adult Z00.00 Assessments Encounter Date Diagnosis (ICD Code) Assessment Notes Treatment Notes Treatment Clinical Notes Section Notes 09/10/2025 Well adult (ICD-10 - Z00.00) 09/21/2024Well adult (ICD-10 - Z00.00)09/28/2024Well adult (ICD-10 - Z00.00) 10/05/2024Well adult (ICD-10 - Z00.00)09/10/2025Well adult (ICD-10 - Z00.00) Plan Of Treatment Pending Test Test Name Order Date Exercise Stress Nuclear Test 01/21/2024 Exercise Stress Nuclear Test 03/08/2024 CMP (COMPLETE METABOLIC PANEL) HEMOGLOBIN A1C (GLYCO) 09/04/2024 HEMOGLOBIN A1C (GLYCO) 09/10/2025 INSULIN, TOTAL 09/10/2025 INSULIN, TOTAL 09/04/2024 LIPID PANEL (CHOL/TRIG/HDL/LDL) 09/04/20 24 LIPID PANEL (CHOL/TRIG/HDL/LDL) 09/10/20 25 CBC WITH DIFF (EXP 07/2025) 09/04/2024 URIC ACID 09/10/2025 EKG w Interp & Report - performed 2023 Carotid Doppler 04/27/2024 PFT Complete w/o Arterial Blood Gases PSA, TOTAL 09/04/2024 MRI CSPINE WO CON 03/30/2024 US CAROTID ART SHARMILA 04/06/2024 XR KNEE RT 3V 02/25/2023 THYROID PANEL (T4/TSH/FREE T3) 4 THYROID PANEL (T4/TSH/FREE T3) 5 ECHOCARDIO M/2D COMPLETE 03/08/2024 PSA, SCREENING 09/10/2025 CMP (COMP MET QUINONES) w/eGFR CKD-EPI 2024 CBC WITH DIFF 09/10/2025 Insurance Providers Payer Name Payer Address Payer Phone Subscriber Number Group Number Insured Name Patient Relationship to Insured Coverage Start Date Coverage End Date [employer] [address] [address] [place] [address] [id number] Hans Montenegro Self - patient is the insured 3 Medical (General) History Medical History History ICD Code Diverticulosis K57.90 Lichen planus L43.9 Eczema L30.9 Insomnia G47.00 Knee osteoarthritis M17.9 Sleep apnea G47.30 Colitis K52.9 Migraine headache G43.909 Spondylosis of cervical spine 721.0 Cervical spondylosis M47.812 Anxiety F41.9 Surgical History Surgery Date(Month/Year) Right Shoulder surgery APPENDECTOMYVASECTOMYHospitalization History Reason Date(Month/Year) vertigo, HTN 01/04
--- OUTSIDE RECORDS SUMMARY | 2025-09-11 09:41 | XMS_ITS | Clinical Summary ---
Author Organization [facility] Address [address] [place] [address] Care Team Providers Care Insurance Coordinator Name Role Phone Francisco Barlow MD Primary Care Provider [phone] Allergies No known active allergies Medications MedicationSigDispense QuantityRefillsLast FilledStart DateEnd DateStatus carvedilol (Coreg) 6.25 mg tablet Take 6.25 mg by mouth.Active omega-3 fatty acids-fish oil 360-1,200 mg capsule Take 1 capsule by mouth.Active multivitamin capsule Take 1 capsule by mouth in the morning.Active Active Problems ProblemNoted DateDiagnosed DateLocalized osteoarthritis of left knee07/16/2022 Social History Tobacco UseTypesPacks/DayYears UsedDateSmoking Tobacco: NeverSmokeless Tobacco: Never Tobacco Cessation:Counseling Given: Not Answered Alcohol UseStandard Drinks/WeekCommentsNever0 (1 standard drink = 0.6 oz pure alcohol)UT Safety & EnvironmentAnswerDate RecordedFear of Current or Ex-Partner Not on file11/04/2023Emotionally AbusedNot on file11/04/2023hysically AbusedNot on file11/04/2023Sexually AbusedNot on file11/04/2023hysically or Sexually AbusedNot on file11/04/2023Sex and Gender InformationValueDate RecordedSex Assigned at BirthNot on fileLegal VngPlas21/28/2022 10:23 AM EDTGender Identity Not on fileSexual OrientationNot on file Last Filed Vital Signs Vital SignReadingTime TakenCommentsBlood Pressure--Pulse--Temperature-- Respiratory Rate--Oxygen Saturation--Inhaled Oxygen Concentration--Pngtqo132 kg (250 lb)07/16/2022 2:08 PM FTUBmgjvj340.8 cm (5' 10 )07/16/2022 2:08 PM EDTBody Mass Index35.8707/16/2022 2:08 PM EDT Plan of Treatment Health MaintenanceDue DateLast DoneCommentsCT Nqnebkikiild1963Colonoscopy 1963Colorectal Cancer Lfryvmsoa1963FIT-DNA1963FIT1963 FOBT1965 8611Tpmihtprwzkuo1963Depression Tthjowoov32/07/1975Zoster Vaccines (1 of 2)2013COVID-19 Vaccine ( season)2025 Influenza Vaccine (#1)/02/2020Adult Qkvsute57HIB VaccinesAged OutNo longer eligible based on patient's age to complete this topic HPV VaccinesAged OutNo longer eligible based on patient's age to complete this topicIPV VaccinesAged OutNo longer eligible based on patient's age to complete this topicMeningococcal B VaccineAged OutNo longer eligible based on patient's age to complete this topicMeningococcal VaccineAged OutNo longer eligible based on patient's age to complete this topicPneumococcal Vaccine: Pediatrics (0 to 5 Years) and At-Risk Patients (6 to 64 Years)Aged OutNo longer eligible based on patient's age to complete this topicRotavirus VaccinesAged OutNo longer eligible based on patient's age to complete this topic Insurance * Guarantor: Hans Montenegro NAccount TypeRelation to PatientDate of BirthPhone Billing AddressPersonal/GvylydJjuk[address] [address] Care Teams Team MemberRelationshipSpecialtyStart DateEnd Date Francisco Barlow MD [address] [place] [address] PCP - Xbpyuqq06/3/22
--- OUTSIDE RECORDS SUMMARY | 2025-09-11 09:44 | XMS_ITS | CCD ---
Author Organization [facility] [place] [facility] Care Team Providers Care Vp Treasurer Name Role Phone DR HILARIA BARLOW Admitting Unavailable CRISTOBAL, DR SENIOR Attending [...] Unavailabl e INPATIENT, TELENEUROLOGY Consulting Unavail able HILARIA BARLOW Referring Unavailable JOHNNYY, HILARIA Ricky Referring Unavailable CRISTOBAL, HILARIA M Primary Care Unavailable BANDAR MCMANUS Attending Unavailable BANDAR MCMANUS Attending Unavailable Hilaria Barlow Primary Care Physician [phone] Hilaria Barlow Admitting Unavailable Kadeem Montenegro Consulting UnavailHilaria Newell Referring Unavailable Hilaria Barlow Attending Unavailable Kadeem Montenegro Consulting UnavailKadeem Lord Consulting UnavailHilaria Newell MD Primary Care Provider Hilaria Barlow MD Unavailable HILARIA BARLOW Referring Unavailable HOY, HILARIA M Primary Care Unavailable MILER, JANESSA Referring Unavailable HOY, HILARIA M Primary Care Unavailable CAT, CALLUM Referring Unavailable HOY, HILARIA M Primary Care Unavailable JEANINE ARMSTRONG Attending Unavailable MILER, JANESSA Referring Unavailable CAT, CALLUM Attending Unavailable HOY, HILARIA M Primary Care Unavailable MILER JANESSA Attending Unavailable MILER, JANESSA Referring Unavailable HOY, HILARIA M Primary Care Unavailable Allergies Allergy ClassificationReported Allergen(s)Allergy TypeDate of OnsetReaction(s) Facility (1 source)No Known Medication Allergies; Translations: [No Known Medication Allergies]Propensity to adverse reactions (disorder)[facility] Medications Current Medications MedicationDrug Class(es)DatesSig (Normalized)Sig (Original)carvedilol 12.5 mg oral tablet (11 sources)alpha-Adrenergic Markie, beta-Adrenergic BlockerStart: 07-16-2020 take 1 tablet by mouth twice dailyCoreg 12.5 mg Tab 12.5 mg = 1 tab(s), Oral, BID, Refills(s) 0 Start Date: 07/16/20 Status: Orderedtake 4 tablets by mouth twice daily at mealtimecarvedilol (COREG) 6.25 mg tablet Take 25 mg by mouth two times a day with meals. Activetake 1 tablet by mouth twice daily at mealtime carvedilol (COREG) 6.25 mg tablet Take 6.25 mg by mouth twice daily with meals. ActivecloNIDine hydrochloride 0.1 mg oral tablet (2 sources)Central alpha-2 Adrenergic AgonistStart: 30-13-2354mlwt 1 tablet by mouth twice dailycloNIDine HCl (CATAPRES) 0.1 mg tablet Take 0.1 mg by mouth two times a day. 07/23/2024 ActiveCPAP (2 sources)CPAP using since 2007 ActiveFish Oils (1 source)Start: 49-49-0011zery 2 capsules by mouth once dailyOmega-3 Fish Oil 2 cap(s), Oral, Daily, Refill(s) 0 Start Date: 07/17/20 Status: Orderedmontelukast 10 mg oral tablet (2 sources)Leukotriene Receptor Antagonisttake 1 tablet by mouth once daily at bedtimemontelukast (SINGULAIR) 10 mg tablet Take 10 mg by mouth daily at bedtime. ActiveMultivitamin capsule (10 sources)take 1 capsule by mouth once dailyMultivitamin capsule Take 1 capsule by mouth once daily. Activetake 1 capsule by mouth once daily Multivitamin capsule Take 1 capsule by mouth once daily. 0 ActiveOmega-3 Fatty Acids, FISH OIL, (FISH OIL) 360-1,200 mg cap (10 sources)take 1 capsule by mouth once daily at breakfastOmega-3 Fatty Acids, FISH OIL, (FISH OIL) 360-1,200 mg cap Take 1 capsule by mouth daily with breakf ast. Activetake 1 capsule by mouth once daily at breakfastOmega-3 Fatty Acids, FISH OIL, (FISH OIL) 360-1,200 mg cap Take 1 capsule by mouth daily with breakf ast. 0 Active Problems Active Problems Problem ClassificationProblemDateDocumented DateEpisodic/ChronicAllergic reactions (3 sources)Eczema; Translations: [Allergic condition]Onset: EpisodicConditions associated with dizziness or vertigo (6 sources)Dizziness and giddiness; Translations: [Vertigo]Onset: 01-10-2024 46-36-3801UiisxyffZohfwwpnyy associated with dizziness or vertigo (1 source)Conditions associated with dizziness or vertigoOnset: 01-08-2024 Essential hypertension (1 source)Hypertensive gbeznwgb07-75-8207MuosmhuGbrzveqz; including migraine (1 source)Ilauponk30-88-6967FzwrlssIpzbclsyp or stenosis of precerebral arteries (1 source)Bilateral stenosis of carotid arteries; Translations: [Occlusion and stenosis of bilateral carotid arteries]26-84-2770IakkmwyZzegiqzmvlsmhd (2 sources)Unilateral primary osteoarthritis, left knee; Translations: [Unilateral primary osteoarthritis, left knee]Onset: 53-40-6634EknypknQgpjk ear and sense organ disorders (1 source)Sensorineural hearing loss, bilateral; Translations: [Sensorineural hearing loss, bilateral]24-88-0610QojemxaEgeii ear and sense organ disorders (1 source)Ear pressure sensation; Translations: [Other specified disorders of ear, bilateral]50-89-6294SbvikhouUegfl gastrointestinal disorders (1 source)H/O: fgtytpq25-77-9555UpcohrkiGciwv nervous system disorders (1 source)Paresthesia of skin; Translations: [Paresthesia of skin]Onset: 57-53-7162LgrwpszaKsluy non-traumatic joint disorders (4 sources)Pain in left knee; Translations: [PAIN IN LEFT KNEE]Onset: 07-07-2022 EpisodicOther nutritional; endocrine; and metabolic disorders (1 source)Body mass index 30+ - vnqqvig93-97-1233VlpyhafXgcmh nutritional; endocrine; and metabolic disorders (10 sources)Obese class II; Translations: [Obesity, unspecified]Onset: 381791-14-0296QwffymaYmxjp screening for suspected conditions (not mental disorders or infectious disease) (1 source)Encounter for screening for malignant neoplasm of prostate; Translations: [ENC SCREEN MALIG NEOPLASM PROSTATE]Onset: 39-75-4913Yzwnqmlt Residual codes; unclassified (1 source)Sleep -04-6644ZccpfvfKkrctubw codes; unclassified (1 source)Pain, unspecified; Translations: [Pain, unspecified]Onset: 01-08-2024 EpisodicResidual codes; unclassified (1 source)Family history of cancer of yimfx84-86-6902XnaycuewYkyfaqpm codes; unclassified (1 source)Tnfaublq15-58-5908TutleeogGwcwxjmohfj; intervertebral disc disorders; other back problems (1 source)Cervical sarzkcfzdnx95-26-0036Ojsiiyo Past or Other Problems Problem ClassificationProblemDateDocumented DateEpisodic/ChronicOther non- traumatic joint disorders (2 sources)Pain in right knee; Translations: [Pain in right knee]Onset: 68-35-5035Mhfnpiob Results Test NameValueInterpretationReference RangeFacilityCNOVon 77-33-2345KBBNLpffvf Visit (DEYVIUCR) MARIA ALEJANDRA MONTENEGRO ([id number]) 1965 M Date Time Provider Department 08/28/24 7:00 AM JEANINE ARMSTRONG During your visit today, we recorded the following information about you: Jeanine Armstrong AUD 08/28/2024 11:22 AM Signed [facility] Department AUDIOLOGIC EVALUATION REPORT Name: Maria Alejandra Montenegro [place]#: [id number] Date of Service: 08/28/2024 Date of : 1965 Age: [age] year old Referred by: Callum Cat MD Referred for: Evaluation of suspected change in hearing, tinnitus, or balance. Referral documented: In an order in Epic Patient's major complaints: Dizziness/vertigo/imbalance Maria Alejandra Montenegro was seen for an initial audiologic evaluation with concerns of dizziness.The following history was obtained by way of Maria Alejandra Montenegro's previous medical record and direct patient [...] evaluation of middle ear function. CPT code: 66024 RIGHT EAR: Normal ME function. LEFT EAR: [...] conduction and speech recognition testing. CPT code: 41548 RIGHT EAR: Hearing Sensitivity: Within normal limits [...] regarding benefits/limitations of hearing aids. * Call [phone] to schedule an appointment to assess your need for hearing aids. Request a HAE appointment. * Continue assessment of vestibular and balance system (Vestibular Battery). FABIAN Nolasco Doctor of Audiology (AuD) [place]ad (more content not included)...NormalOhioHealth [facility] TEST/AUDIOGRAMon 39-40-1196Sdoznhvbv ClinicCNOVon 24-28-2875ZBABUhadya Visit (DIPESH) MARIA ALEJANDRA MONTENEGRO ([id number]) 1965 M Date Time Provider Department 07/24/24 8:00 AM CALLUM CAT During your visit today, we recorded the following information about you: Pulse Blood pressure 51/minute 147/88 Callum Cat MD 07/24/2024 2:47 PM Signed OTOLARYNGOLOGY-HEAD AND NECK SURGERY CC: Maria Alejandra Montenegro is a 59 year old male who is seen at the request of Dr. Janessa Galicia for evaluation of dizziness. My findings [...] times a day. CPAP using since 2007 Lennon-3 Fatty Acids, FISH OIL, (FISH OIL) 360-1,200 [...] SKIN: Negative for lesions, rash, and itching. HEMATOLOGIC/LYMPHATIC/IMMUNOLOGIC: Negative for prolonged bleeding, bruising easily or swollen nodes. ENDOCRINE: Negative for cold or heat intolerance, polyuria, polydipsia and goiter. PHYSICAL EXAM: On physical examination Maria Alejandra Montenegro is a well-developed, well nourished male. [...] is noted. Callum Cat MD Referring Provider: JANESSA GALICIA [[id number]] Allergies As of Date: 07/24/2024 (No Known Allergies) Date Reviewed: 07/24/2024 Reviewed by: Callum Cat MD - Fully Assessed Reason for Visit: New Patient [172] Cmt: C/o ear blockage, sinus concern? Vascular, Dr. Lo. Referred to ENT. Onset: approx December 2023 after bout of vertigo. present. Primary Visit Diagnosis:Dizziness [R42] Other Visit Diagnosis:Ear pressure, bilateral [H93.8X3] Order(s):CONSULT TO ENT [9008] Order #: [id number]: 1 VESTIBULAR TEST BATTERY [8838907] Order #: [id number]: 1 HEARING TEST/AUDIOGRAM [8043399] Order #: [id number]: 1 FUTURE Prescription (more content not included)...NormalPark[facility] on 49-30-7642VFHAPulxyq Visit (VASSAV) MARIA ALEJANDRA MONTENEGRO ([id number]) 1965 M Date Time Provider Department 05/30/24 9:45 AM JANESSA GALICIA During your visit today, we recorded the following information about you: Blood pressure Weight Height 172/102 115.7 kg 1.778 m Janessa Galicia MD 05/30/2024 9:34 AM [facility] [place] DEPARTMENT OF VASCULAR SURGERY OUTPATIENT VISIT DATE May 30, 2024 OUTPATIENT VISIT TYPE CONSULTATION SERVICE DATE: 05/30/2024 SERVICE TIME: 9:20 AM PRIMARY CARE PHYSICIAN: Hialria Barlow MD REFERRING PROVIDER: Janessa Galicia [id number] [id number] Consult requested for an opinion regarding the evaluation and treatment of the above. My final impression and recommendations will be communicated back to the requesting physician by way of the shared medical record or letter via US mail. CHIEF COMPLAINT: Asymptomatic carotis tenosis HISTORY OF PRESENT ILLNESS: Vascular consultation at the request of Dr. Janessa Galicia. A copy of this consultation note [...] Never No family history on file. MEDICATIONS: Lennon-3 Fatty Acids, FISH OIL, (FISH OIL) 360-1,200 [...] mgmt Prn fu Referral to ENT SIGNATURE: Janessa Galicia MD PATIENT NAME: Maria Alejandra Montenegro DATE: May 30, 2024 TIME: 9:20 AM Referring Provider: JANESSA GALICIA [[id number]] Allergies As of Date: 05/30/2024 (Not on File) Date Reviewed: 05/30/2024 Reviewed by: Jess Hyatt RN - Fully Assessed Reason for Visit: New Patient [172] Primary Visit Diagnosis:Bilateral carotid artery stenosis [I65.23] Prescriptions as of 05/30/2024 - Lennon-3 Fatty Acids, FISH OIL, (FISH OIL) 360-1,200 mg cap Take 1 capsule by mouth daily with breakfast. - Multivitamin capsule Take 1 capsule by mouth once daily. - carvedilol (COREG) 6.25 mg tablet Take 6.25 mg by mouth twice daily with meals. Problem List As Of Date 05/30/2024 Noted Resolved Obesity, Class II, BMI 35-39.9 [E66.9] 12/01/2018 Encounter Status:Closed by JANESSA GALICIA on 05/30/24No[facility] CAROTID ARTERIES SHARMILA VAS LABon 23-12-7853LT CAROTID ARTERIES SHARMILA VAS LABNon- Invasive Vascular Laboratory [facility] Carotid Duplex Bilateral/Complete Date of service/time: 05/30/2024 8:30:56 AM Name: MARIA ALEJANDRA MONTENEGRO Date of : 1965 Age: 59 [...] antegrade flow noted. Subclavian artery: Patent. Technologist: Hilaria White [facility] Ordering physician: JANESSA GALICIA Interpreting physician: Janessa Galicia MD, GRETCHEN Final CC [employer] [facility] Image : [id number] See Link below for ImageNormalAvon HospitalUS Carotid arteries - bilateralon 05-30-2024 Non-Invasive Vascular Laboratory [facility] Carotid Duplex Bilateral/Complete Date of service/time: 05/30/2024 8:30:56 AM Name: MARIA ALEJANDRA MONTENEGRO Date of : 1965 Age: 59 [...] antegrade flow noted. Subclavian artery: Patent. Technologist: Hilaria White [facility] Ordering physician: JANESSA GALICIA Interpreting physician: Janessa Galicia MD, RPJUSTA Final See Link below for ImageAVON CARDIOLOGYOhioHealth Marion General HospitalOVon 31-17-3158PXMO Office Visit (VASSAV) MARIA ALEJANDRA MONTENEGRO ([id number]) 1965 M Date Time Provider Department 05/02/24 12:30 PM JANESSA GALICIA During your visit today, we recorded the following information about you: Referring Provider: HILARIA BARLOW [[id number]] Allergies As of Date: 05/02/2024 (Not on File) Date Reviewed: 12/01/2018 Reviewed by: Paulie Todd - Fully Assessed Primary Visit Diagnosis:NO SHOW Prescriptions as of 05/03/2024 - Lennon-3 Fatty Acids, FISH OIL, (FISH OIL) 360-1,200 mg cap Take 1 capsule by mouth daily with breakfast. - Multivitamin capsule Take 1 capsule by mouth once daily. - carvedilol (COREG) 6.25 mg tablet Take 6.25 mg by mouth twice daily with meals. Problem List As Of Date 05/02/2024 Noted Resolved Obesity, Class II, BMI 35-39.9 [E66.9] 12/01/2018 Encounter Status:Closed by JANESSA GALICIA on 05/03/24[facility] 69-03-5105ZKWEFfmazaief (VASSAV) MARIA ALEJANDRA MONTENEGRO ([id number]) 1965 M Date Time Provider Department 04/27/24 JANESSA GALICIA BARBARA During your visit today, we recorded the following information about you: Candie Orta 04/27/2024 10:59 AM Signed Left patient a [...] Appointment [186] Prescriptions as of 04/27/2024 - Lennon-3 Fatty Acids, FISH OIL, (FISH OIL) 360-1,200 mg cap Take 1 capsule by mouth daily with breakfast. - Multivitamin capsule Take 1 capsule by mouth once daily. - carvedilol (COREG) 6.25 mg tablet Take 6.25 mg by mouth twice daily with meals. Problem List As Of Date 04/27/2024 Noted Resolved Obesity, Class II, BMI 35-39.9 [E66.9] 12/01/2018 Encounter Status:Closed by STEPHEN BERNARDO on 04/27/24[facility]CNM[facility] Angel 35-53-3607GUCGEltflsrgf (REFPHY) MARIA ALEJANDRA MONTENEGRO ([id number]) 1965 M Date Time Provider Department 04/24/24 NO ONE (HISTORICAL) REFPHY During your visit today, we recorded the following information about you: Sana Harrington 04/24/2024 12:41 PM Signed Patient: Maria Alejandra Montenegro Date of : 1965 Patient phone number: [phone] Referring Provider for the encounter: Hilaria Barlow Requesting Provider: n/a Reason for requesting visit (RFV/signs and symptoms/diagnosis): Carotid Occlusive Disease Person calling: caregiver: Sana Return call to: self Medical Records/Insurance Card scanned into [facility]: Yes Comments: Allison Phillips 04/25/2024 3:14 PM Signed Triage please, pulled records from [facility] Allison Phillips 04/26/2024 12:54 PM Signed Lvm to call back to schedule Allison Phillips 04/27/2024 10:40 AM Signed Patient scheduled at [facility] with a ameena provider Allergies As of Date: 04/24/2024 (Not on File) Date Reviewed: 12/01/2018 Reviewed by: Paulie Todd - Fully Assessed Reason for Visit: External Referrals/resources [909] Prescriptions as of 04/27/2024 - Lennon-3 Fatty Acids, FISH OIL, (FISH OIL) 360-1,200 mg cap Take 1 capsule by mouth daily with breakfast. - Multivitamin capsule Take 1 capsule by mouth once daily. - carvedilol (COREG) 6.25 mg tablet Take 6.25 mg by mouth twice daily with meals. Problem List As Of Date 04/24/2024 Noted Resolved Obesity, Class II, BMI 35-39.9 [E66.9] 12/01/2018 Encounter Status:Closed by SANA HARRINGTON on 04/24/24[facility] Hospital[facility] 97-70-4060GNQBNkuscmoyv (REFPHY) MARIA ALEJANDRA MONTENEGRO ([id number]) 1965 M Date Time Provider Department 04/20/24 NO ONE (HISTORICAL) REFPHY During your visit today, we recorded the following information about you: Kirit Angel 04/20/2024 10:20 AM Signed Patient: Maria Alejandra Montenegro Date of : 1965 Patient phone number: [phone] Referring Provider for the encounter: Hilaria Barlow Requesting Provider: Vascular Surgery Reason for requesting visit (RFV/signs and symptoms/diagnosis): Carotid Occlusive Disease. Person calling: Kirit A Return call to: Patient Medical Records/Insurance Card scanned into [facility]: No Comments: Allergies As of Date: 04/20/2024 (Not on File) Date Reviewed: 12/01/2018 Reviewed by: Paulie Todd - Fully Assessed Prescriptions as of 04/21/2024 - Lennon-3 Fatty Acids, FISH OIL, (FISH OIL) 360-1,200 mg cap Take 1 capsule by mouth daily with breakfast. - Multivitamin capsule Take 1 capsule by mouth once daily. - carvedilol (COREG) 6.25 mg tablet Take 6.25 mg by mouth twice daily with meals. Problem List As Of Date 04/20/2024 Noted Resolved Obesity, Class II, BMI 35-39.9 [E66.9] 12/01/2018 Encounter Status:Closed by KIRIT ANGEL on 04/21/24[facility] CERVICAL SPINE WO IVCONon 66-64-9252EFJ CERVICAL SPINE WO IVCON* * *Final Report* * * DATE OF [...] vertebrae with counting from the craniocervical junction. Director Content Marketing: JIMMY Transcribe Date/Time: Apr 24 2024 12:44P Dictated by : ALEJANDRO KENYON MD This examination was interpreted and the report reviewed and electronically signed by: ALEJANDRO KENYON MD on Apr 24 2024 12:57PM EST [id number] Light Mayo HospitalRefillon 05-10-2023 [id number] Maria Alejandra Montenegro 1965 M Date Provider Department Center 05/10/2023 ABRAHAM LARA [facility] Family history unknown: Yes Reason for Visit and Comments: Med Refill [[id number]]NormalUnMercy HealthINSULINon 08-07-2022 Insulin9.1 uIU/mLNormal2.6-24.9The [facility] CenterComment on above:Performed By: #### INSULIN #### [facility] [address] [address] [address] Arsh Villarreal AUTO DIFFon 68-18-2591BHPW #0.1 103/ulNormal0.0-0.1The [facility] CenterComment on above:Performed By: #### CBC #### [facility] [address] [address] [address] Arsh NielsenBasophils/100 WBC (Bld)1.7 %Normal0.2-2.0[facility] Comment on above:Performed By: #### CBC #### [facility] [address] [place] [address] Dr. Arsh Henderson #0.2 103/ulNormal0.0-0.7The [facility] CenterComment on above: Performed By: #### CBC #### [facility] [address] [place] [address] Dr. Arsh Leesosinophils/100 WBC (Bld)3.5 %Normal0.9-7.0The [facility] Comment on above:Performed By: #### CBC #### [facility] [address] [place] [address] Dr. Arsh Leesrythrocyte distribution width (RBC) [Ratio]12.9 %Oriinb76.0-15.0 The [facility] CenterComment on above:Performed By: #### CBC #### [facility] [address] [place] [address] Dr. Arsh NielsenHematocrit (Bld) [Volume fraction]43.5 %Qdrjuj92.0-54.0The [facility] CenterComment on above:Performed By: #### CBC #### [facility] [address] [place] [address] Dr. Arsh NielsenHemoglobin (Bld) [Mass/Vol]14.8 g/gAZmxlij73.0-18.0The [facility] CenterComment on above:Performed By: #### CBC #### [facility] [address] [place] [address] Dr. Arsh Torres #0.01 10e3/ulNormal0.00-0.03The [facility] on above:Performed By: #### CBC #### [facility] [address] [address] [address] Arsh Torres %0.2 %Normal0.0-0.5[facility] on above: Performed By: #### CBC #### [facility] [address] [address] [address] Arsh Castillo #1.4 103/ulNormal1.2-3.8The [facility] CenterComveterans affairs [facility] on above:Performed By: #### CBC #### [facility] [address] [place] [address] Dr. Arsh Boltonhocytes/100 WBC (Bld)31.2 %Jzcqrn85.5-60.0The [facility] CenterComveterans affairs [facility] on above:Performed By: #### CBC #### [facility] [address] [place] [address] Dr. Arsh Saenz DIFF REQNONormalThe [facility] CenterComment on above: Performed By: #### CBC #### [facility] [address] [place] [address] Dr. Arsh Dobbs (RBC) [Entitic mass]30.9 dtIomaya35.9-34.0[facility] on above:Performed By: #### CBC #### [facility] [address] [place] [address] Dr. Arsh López (RBC) [Mass/Vol]34.0 g/uIVfsvvj12.9-35.2The [facility] Ohioment on above:Performed By: #### CBC #### [facility] [address] [place] [address] Dr. Arsh López (RBC) [Entitic vol]90.8 vQQwtroh90.0-94.0[facility] on above:Performed By: #### CBC #### [facility] [address] [place] [address] Dr. Arsh Leon #0.4 103/ulNormal0.3-0.8The [facility] CenterComment on above:Performed By: #### CBC #### [facility] [address] [place] [address] Dr. Arsh Tejedaocytes/100 WBC (Bld)8.0 %Normal1.7-12.0The [facility] Comment on above:Performed By: #### CBC #### [facility] [address] [place] [address] Dr. Arsh Alves #2.6 103/ulNormal1.4-6.5The [facility] CenterComment on above:Performed By: #### CBC #### [facility] [address] [place] [address] Dr. Arsh Peckutrophils/100 WBC (Bld)55.4 %Zzwuqm04.0-75.0The [facility] CenterComment on above:Performed By: #### CBC #### [facility] [address] [place] [address] Dr. Arsh NielsenPlatelet mean volume (Bld) [Entitic vol]9.3 fLCritically low 9.5-13.5The [facility] CenterComment on above:Performed By: #### CBC #### [facility] [address] [place] [address] Dr. Arsh NielsenPLT248 103/laJigwig040-233Urg [facility] CenterComment on above: Performed By: #### CBC #### [facility] [address] [place] [address] Dr. Arsh NielsenRBC4.79 106/ulNormal4.70-6.10The [facility] CenterComment on above:Performed By: #### CBC #### [facility] [address] [place] [address] Dr. Arsh NielsenWBC4.6 103/ulNormal4.0-11.0The [facility] CenterComment on above: Performed By: #### CBC #### [facility] [address] [place] [address] Dr. Arsh NielsenGLYCOHEMOGLOBIN A1Con 59-89-7959CQL RECOMMENDATIONSEE BELOWNormal The [facility] CenterComment on above:Result Comment: ADA RECOMMENDED LIMIT 4.0 - 6.0 ADA THERAPEUTIC TARGET < 7.0 ACTION SUGGESTED > 7.0Performed By: #### A1C #### [facility] [address] [place] [address] Dr. Arsh NielsenGlucose [Mass/Vol]108 mg/dLNoKindred HealthcareComment on above:Performed By: #### A1C #### [facility] [address] [place] [address] Dr. Arsh NielsenHbA1c (Bld) [Mass fraction]5.4 %Normal4.5-6.2[facility] The Jewish HospitalComment on above:Performed By: #### A1C #### [facility] [address] [place] [address] Dr. Arsh CallID PROFILEon [id number]-HDL RATIO NORMSEE [facility] HospitalComveterans affairs [facility] on above:Result Comment: 3.3 - 4.4 LOW RISK 4.4 - 7.1 AVERAGE RISK 7.1 - 11.0 MODERATE RISK >11.0 HIGH RISKPerformed By: #### CMP, LIPID #### [facility] [address] [place] [address] Dr. Arsh Riosesterol [Mass/Vol]157 mg/dLNormal<=200The [facility] Comment on above:Performed By: #### CMP, LIPID #### [facility] [address] [place] [address] Dr. Arsh NielsenCholesterol in HDL [Mass/Vol]35 mg/dLCritically zbt03-04Ung [facility] CenterComment on above:Performed By: #### CMP, LIPID #### [facility] [address] [place] [address] Dr. Arsh NielsenCholesterol in LDL [Mass/Vol]98.8 mg/dLNoKindred HealthcareComment on above:Performed By: #### CMP, LIPID #### [facility] [address] [place] [address] Dr. Arsh Riosesterarnol.total/Cholesterol in HDL [Mass ratio]4.5 {ratio} NormalThe [facility] CenterComment on above:Performed By: #### CMP, LIPID #### [facility] [address] [address] [address] Arsh Dominguez NORMAL> or = 60 mg/dl - LOW CARDIOVASCULAR RISK <40 mg/dl - HIGH CARDIOVASCULAR RISKSouthview Medical CenterComment on above:Performed By: #### CMP, LIPID #### [facility] [address] [address] [address] Arsh NielsenLDL CALC NORMALSEE BELOWNoKindred HealthcareComment on above:Result Comment: <100 mg/dl OPTIMAL 100 - 129 mg/dl NEAR OR ABOVE OPTIMAL 130 - 159 mg/dl BORDERLINE HIGH 160 - 189 mg/dl HIGH >190 mg/dl VERY HIGH Performed By: #### CMP, LIPID #### [facility] [address] [place] [address] Dr. Arsh NielsenTriglyceride [Mass/Vol]116 mg/dLNormal<=150The [facility] Comment on above:Performed By: #### CMP, LIPID #### [facility] [address] [address] [address] Arsh PakLDL CALC23.2 mg/dLNoKindred HealthcareComment on above: Performed By: #### CMP, LIPID #### [facility] [address] [place] [address] Dr. Arsh NielsenPROF 14(COMP METB)on 09-23-6669Hjqjjba [Mass/Vol]3.7 g/dLNormal 3.4-5.0The [facility] Ohioment on above:Performed By: #### CMP, LIPID #### [facility] [address] [address] [address] Arsh NielsenAlbumin/Globulin [Mass ratio]1.1 {ratio}NormalThe [facility] CenterComment on above:Performed By: #### CMP, LIPID #### [facility] [address] [address] [address] Arsh NielsenALP [Catalytic activity/Vol]58 U/XTlxqli68-651Ewz Jumana HospitalComment on above:Performed By: #### CMP, LIPID #### [facility] [address] [address] [address] Arsh GuzmanT [Catalytic activity/Vol]18 U/SKuispx89-03Eot [facility] CenterComment on above:Performed By: #### CMP, LIPID #### [facility] [address] [address] [address] Arsh Burton gap [Moles/Vol]9.5 mmol/LNormalThe [facility] CenterComment on above:Performed By: #### CMP, LIPID #### [facility] [address] [address] [address] Arsh NielsenAST [Catalytic activity/Vol]16 U/WNlgudx43-08Wjy [facility] CenterComment on above:Performed By: #### CMP, LIPID #### [facility] [address] [address] [address] Arsh NielsenBilirubin [Mass/Vol]0.6 mg/dLNormal0.2-1.0[facility] Comment on above:Performed By: #### CMP, LIPID #### [facility] [address] [address] [address] Arsh NielsenCalcium [Mass/Vol]9.1 mg/dLNormal8.5-10.1[facility] Comment on above:Performed By: #### CMP, LIPID #### [facility] [address] [address] [address] Arsh NielsenChloride [Moles/Vol]107 mmol/XOauiru01-308Zop [facility] Comment on above:Performed By: #### CMP, LIPID #### [facility] [address] [address] [address] Arsh NielsenCO2 [Moles/Vol]31.2 mmol/ZWbtufa01.0-32.0The [facility] Comment on above:Performed By: #### CMP, LIPID #### [facility] [address] [address] [address] Arsh NielsenCreatinine [Mass/Vol]0.96 mg/dLNormal0.70-1.30[facility] HospitalComment on above:Performed By: #### CMP, LIPID #### [facility] [address] [address] [address] Arsh Martinez-AF SAUDI ARABIAN>60Normal>=60The [facility] CenterComment on above:Performed By: #### CMP, LIPID #### [facility] [address] [address] [address] Arsh Martinez-NON AF SAUDI ARABIAN>60Normal>=60The [facility] CenterComment on above:Performed By: #### CMP, LIPID #### [facility] [address] [address] [address] Arsh NielsenGlobulin (S) [Mass/Vol]3.3 g/dLNormalThe [facility] CenterComment on above:Performed By: #### CMP, LIPID #### [facility] [address] [place] [address] Dr. Arsh NielsenGlucose [Mass/Vol]100 mg/cDIvtdoh38-425SkxMercy Health – [facility] Comment on above:Performed By: #### CMP, LIPID #### [facility] [address] [address] [address] Arsh NielsenPotassium [Moles/Vol]4.7 mmol/LNormal3.5-5.1[facility] Comment on above:Performed By: #### CMP, LIPID #### [facility] [address] [address] [address] Arsh NielsenProtein [Mass/Vol]7.0 g/dLNormal6.4-8.2The [facility] Comment on above:Performed By: #### CMP, LIPID #### [facility] [address] [address] [address] Arsh NielsenSodium [Moles/Vol]143 mmol/NCpkhma693-454GtcMercy Health – [facility] Comment on above:Performed By: #### CMP, LIPID #### [facility] [address] [address] [address] Arsh NielsenUrea nitrogen [Mass/Vol]14.0 mg/dLNormal7.0-18.0[facility] HospitalComment on above:Performed By: #### CMP, LIPID #### [facility] [address] [address] [address] Arsh Cabrera nitrogen/Creatinine [Mass ratio]14.6 mg/mgNoKindred HealthcareComment on above:Performed By: #### CMP, LIPID #### [facility] [id number] Arsh Salas Visiton 17-81-1087Bktgkb-up [id number] MontenegroMaria Alejandra George 1965 M Date Provider Department Center 07/16/2022 ABRAHAM LARA MP ORTHO MPORTHO Family History Family history unknown: Yes Level of Service:97990 MA OFFICE/OUTPATIENT [facility] 30-44 MINUTES Reason for Visit and Comments: Pain [136]NormalUnMercy HealthUS SHELDON DOP LEG LTon 77-98-9333WW SHELDON DOP LEG LTEXAMINATION: US SHELDON DOP LEG LT HISTORY: Pain [...] Electronically authenticated by: JACE SHARMA Date: 2022-07-07 12:15NormalMercy Health – [facility] Vital Signs Date TimeVital SignValuePerforming AnntldhtsHefsfehv07-41-3176 08:02-0500 Diastolic blood vmuunfsi97 mm[Hg]Callum Cat MD Work Phone: [facility]11-11-2024 08:02-0500Heart rate51 /min Callum Cat MD Work Phone: [facility]11-11-2024 08:02-0500Systolic blood dchyjyun133 mm[Hg]Callum Cat MD Work Phone: [facility]09-17-2024 09:10-0400Body rzmyxe684.8 Medardo Galicia MD Work Phone: [facility]09-17-2024 09:10-0400Body mass index (BMI) [Ratio]36.59 kg/m2Janessa Galicia MD Work Phone: [facility]09-17-2024 09:10-0400Body mtnesc679.67 kgJanessa Galicia MD Work Phone: [facility]09-17-2024 09:10-0400Diastolic blood uebnnhfq762 mm[Hg]Janessa Galicia MD Work Phone: [facility] CenterComment on above:jdwnmug09-70-3954 09:10-0400Systolic blood nqclygzb998 mm[Hg]Janessa Galicia MD Work Phone: [facility] Health CenterComment on above:nervous Encounters Encounter DateEncounter TypeCare ProviderFacilityStart: 08-28-2024 End: 04-84-9153bntiblthlySCUF OSBORNEFacility:[facility]ontart: 08-28-2024 End: 30-85-3545Lctsqij encounter procedureSviry Declanrigoberto FLORIAN Work Phone: AudiologyComment on above:Sensorineural hearing loss, bilateral (Primary Dx); DizzinessStart: 07-24-2024 End: 28-72-3353blzewwnjtgTPY MILERFacility:[facility]ontart: 07-24-2024 End: 03-19-3925Xnsflwj encounter procedureCallum Cat MD Work Phone: OtolaryngologyComment on above:Dizziness (Primary Dx); Ear pressure, bilateralStart: 05-30-2024 End: 29-52-6591Arbfxx Franklin Galicia MD Work Phone: Vascular SurgeryComment on above:Allergy, initial encounter (Primary Dx)Bilateral carotid artery stenosis (Primary Dx)Vertigo [R42]Start: 30-93-1764Hwhxeu Kemi Barlow MD Work Phone: Vascular SurgeryComment on above:Vertigo (Primary Dx) AppointmentStart: 53-35-9943Nqcnuurmq encounterNo One (Historical)Referring PhysicianComment on above:External Referrals/resourcesStart: 47-52-2202Dvoxqdizm encounterNo One (Historical)Referring PhysicianStart: 91-02-3919cwymokvhbi HILARIA García HOYFacility:[facility] HospitalStart: 2024 End: 28-85-8251Psyvmcydpp hospital visit by physicianMri [facility] (1.5t)RADIO MRI LODI HOSPComment on above:Paresthesia of skin [R20.2]Start: 03-14-2024 End: 30-65-4821nqsddaeeaeOqnifbx HoyFacility:FTMCStart: 03-14-2024 End: 06-37-1827Aqzjjvv encounter procedureHilaria Barlow [facility] Start: 02-28-2024 End: 85-35-8393jfychxlyhsGXSOEMZ W BAUERNot AvailableStart: 01-27-2024 End: 77-66-8771ymoqtyzbroOHKNBOG W BAUERNot AvailableStart: 01-12-2024 End: 64-62-3629llucdfswudNLFHHBX M [facility] HospitalStart: 01-10-2024 End: 13-01-8573abzcwpcalaCJGAPNU Ricky [facility] HospitalStart: 92-34-0317ouanfuxoduWAHGLong [facility] Ambulatory PPGStart: 01-08-2024 End: 91-44-1567Ijzebhbdo department patient visitAMIN [facility] Ambulatory PPGStart: 32-01-5482junaeeceggTTSXLong Island [facility] Ambulatory PPGStart: 94-15-5290Ivqvzmkfs for general adult medical examination without abnormal findingsDR HILARIA [facility] HospitalStart: 08-05-2022 End: 38-66-6558jxibphbxwyVU HILARIA TURNERYFacility:Y9Ksnrd: 08-05-2022 End: 19-80-9127Vojfpvlmn for general adult medical examination without abnormal findingsDR HILARIA HOYFacility:H9Fmdbk: 07-16-2022 End: 39-17-3069xgpkovipubKKVLEUO A [facility] Hospitaltart: 07-07-2022 End: 42-19-4531eczvgvsbepWQ HILARIA HOYFacility:H1 Procedures DateProcedureProcedure DetailPerforming ClinicianStart: 84-41-3248GKJQGYO TEST/AUDIOGRAMKyra Gin MCMAHAN Work Phone: Start: 79-30-0796Jwtrzy scan extracranial art compl bi Joaquin Galicia MD Work Phone: Start: 26-15-2194LKV screeningDR HILARIA HOYComment on above:Performed By: #### PSASC #### [facility] [address] [place] [address] Dr. Arsh NielsenStart: 20-11-5242RvwasoozceeIatlvjh Hoy AppendectomyDouglas Hoy Bone spur of right shoulderDouglas Hoy VasectomyDouglas Hoy Plan of Treatment DateCare ActivityDetailAuthorStart: 17-19-1099RWU Vaccine (1 - 1-dose 75+ series)RSV Vaccine (1 - 1-dose 75+ series)[facility]: 08-05-2027 Prostate specific antigen measurementProstate Cancer Screening Discussion [facility]: 90-53-1550Twpqe microalbumin profileDTaP,Tdap,Td Vaccine (2 - Td or Tdap)[facility]: 11-03-2024 End: 17-43-2339Mfvyuvu encounter tykzdnije91/21/2025 7:00 AM EST Office Visit Audiology [address] [place] [address] [address] [facility] [address] [place] [address] Bryanna Ramesh, AUD [address] [place] [address] dizzinessAudiologyComment on above:dizzinessStart: 08-28-2024 End: 80-20-4594Yywuais encounter bovibvhio06/16/2024 7:00 AM EST Office Visit Audiology [address] [place] [address] Jeanine Armstrnog AUD [address] [place] [address] dizziness AudiologyComment on above:dizzinessStart: 07-24-2024 End: 75-20-2327Ufvkxea encounter tmrtqjaqh65/11/2024 8:00 AM EST Office Visit Otolaryngology [address] [place] [address] Callum Cat MD [address] [place] [address] Allergy, initial encounter [T78.40XA]OtolaryngologyComment on above:Allergy, initial encounter [T78.40XA]Start: 05-30-2024 End: 09-01-7466Jbhdrwi encounter qvnwmmmno04/17/2024 9:45 AM EDT Office Visit Vascular Surgery [address] [place] [address] [place] [address] [place], [place] [id number] Carotid artery occlusion - I65.29 (Primary)Vascular SurgeryComment on above:Carotid artery occlusion - I65.29 (Primary)Start: 05-30-2024 End: 37-04-1194Hmfyyba encounter /17/2024 8:30 AM EDT Appointment Vascular Testing [address] [place] [address] [address], [address] [employer] [address] [place] [address] Carotid artery occlusion - I65.29 (Primary)Vascular TestingComment on above:Carotid artery occlusion - I65.29 (Primary)Start: 13-82-5467Qbgyb-19 Vaccine ( season)Covid-19 Vaccine ( season)[facility]: 05-14-2024 Covid-19 Vaccine ( season)Covid-19 Vaccine ( season) [facility]: 99-33-3512Hdpahrtrq vaccinationInfluenza Vaccine (#1) [facility]: 05-02-2024 End: 68-04-4039Wrxqoqy encounter hgbfobojj24/20/2024 12:30 PM EDT Office Visit Vascular Surgery [address] [place] [address] [place] [address] [place] [address] Canceled (CC cx: Equipment, Prep, Appropriateness)Vascular SurgeryComment on above:Canceled (CC cx: Equipment, Prep, Appropriateness)Start: 05-14-2023 Covid-19 Vaccine ( season)Covid-19 Vaccine ( season) [facility]: 27-05-9573TCJ Vaccine (1 - 1-dose 60+ series)RSV Vaccine (1 - 1-dose 60+ series)[facility]: 34-09-4166Zlzbfnve specific antigen measurementProstate Cancer Screening DiscussionSelect [facility] Hospital [facility]htart: 28-43-8730Ujtebrrpjhon Vaccine: 50+ (1 of 1 - PCV)Pneumococcal Vaccine: 50+ (1 of 1 - PCV)[facility]: 67-39-9670Hwglugpz Vaccine (1 of 2)Shingrix Vaccine (1 of 2)[facility]: 53-80-6932Trtvoxpe ScreeningDiabetes ScreeningSelect Medical Specialty Hospital [facility]htart: 44-35-6319Lsuoqvmqo for malignant neoplasm of colonSelect Medical Specialty Hospital [facility] Northtart: 03-33-0809Iklqa panelLipid ScreeningOhiohealth Nelsonville Health Center Start: 00-02-5735Iapwffs ScreeningAnxiety ScreeningSelect [facility] Specialty [facility]htart: 50-48-5329Gxdcckjjsu ScreeningDepression ScreeningSelect [facility]ty [facility]htart: 59-72-1914Mbzfeqktt C screeningHepatitis C ScreeningSelect Medical Specialty [facility]htart: 96-24-5161ASZ screeningHIV ScreeningOhiohealth Nelsonville Health Center End: 69-52-9074RDROGEB TEST/AUDIOGRAMHEARING TEST/AUDIOGRAM Audiology Routine Dizziness 1 Occurrences starting 07/24/2024 until [facility]2025[facility] Comment on above:1 Occurrences starting 07/24/2024 until 07/25/2025 End: 35-19-0224YJ Carotid arteries - bilateralUS CAROTID ARTERIES SHARMILA [facility] Vascular Lab Routine Vertigo 1 Occurrences starting 04/27/2024 until 04/27/2025 [facility] Work Phone: Comment on above:1 Occurrences starting 04/27/2024 until 04/27/2025VESTIBULAR TEST BATTERYVESTIBULAR TEST BATTERY Audiology Routine Dizziness Ordered: 07/24/2024[facility] Work Phone: Comment on above:Ordered: 07/24/2024 Immunizations Immunization DateImmunizationNotesCare IipimjloLpvlgnqn35-13-8758uejfstvot virus vaccine, unspecified formulationMri (1.5t)[facility] CenterBgmwvc78-89-2648srwvdfqqy virus vaccine, unspecified formulationDosukichristian Barlow [phone]-YzbydSelect [facility] [place] Payers DatePayer CategoryPayerPolicy [id number] Health Insurance [id number] Private Health [id number] 2..840.1.700658.3.57[id number] 2..840.1.106011.3.57[id number] 2..840.1.611816.3.57[id number] 2..840.1.155708.3.57[id number] 2.16.840.1.743896.3.57[id number] 2.16.840.1.592104.3.57[id number] 2.16.840.1.588666.3.57[id number] 2.16.840.1.845026.3.57[id number] 2.16.840.1.802005.3.57[id number] 2.16.840.1.515511.3.57[id number] 2.16.840.1.944280.3.57[id number] 2.16.840.1.068948.3.57[id number] Social History DateTypeDetailFacilmercy health urbana hospitalStart: 07-17-2020 End: 40-25-0349Anazsou smoking statusNever smoked tobacco (finding)[facility] HospitalTobacc smoking statusNeverGreene Memorial Hospital Start: 12-01-2018 End: 58-73-8196Sqn Assigned At BirthMaleFKindred Hospital LimaTobaarbuckle memorial hospital – [facility] smoking status NHISTobacco smoking consumption unknownSelect [facility]htart: 12-01-2018 End: 49-11-5451Xoqggev of Social functionSelect Medical Specialty Hospital - [facility] Northtart: 21-02-0045Oxd Assigned At BirthNot on fileSelect Medical Specialty Hospital - [facility] Northtart: 65-73-2344Naniflg use and exposureSmokeless tobacco non-userSelect Medical Specialty Hospital - [facility] Northtart: 05-30-2024 End: 09-25-0432Jexkadgvl beverage intakeEx-drinker (finding)[facility] Goals DatePatient GoalDesired Activity/StatePersonal health goal Clinical Notes 07-16-2022 to 08-28-2024 Note Date & WaohUrjxPnhezvdy41-40-6578 History of Present illness Narrative* Jeanine Armstrong, ANIVAL - 08/28/2024 7:00 AM EST Images from the original note were not included. [facility] AUDIOLOGIC EVALUATION REPORT Name: Maria Alejandra Montenegro [place]ERT[place]#: [id number] Date of Service: 08/28/2024 Date of : 1965 Age: [age] year old Referred by: Callum Cat MD Referred for: Evaluation of suspected change in hearing, tinnitus, or balance. Referral documented: In an order in [facility] Patient's major complaints: Dizziness/vertigo/imbalance Maria Alejandra Montenegro was seen for an initial audiologic evaluation with concerns of dizziness.The following history was obtained by way of Maria Alejandra Montenegro's previous medical record and direct patient [...] evaluation of middle ear function. CPT code: 56612 RIGHT EAR: Normal ME function. LEFT EAR: [...] objective evaluation hearing sensitivity via air and boneconduction and speech recognition testing. CPT code: 55479 RIGHT EAR: Hearing Sensitivity: Within normal limits through 2000 Hz sloping to moderately- severe sensorineural hearing loss. Word Recognition Score: Excellent (92%). WRS is consistent with hearing sensitivity. Words were presented at 70 dB HL which is above (greater than or equal to 60 dB HL) intensity level for average conversational speech. The NU-6 Word List (25 words) was used. LEFT EAR: Hearing Sensitivity: Within normal limits through 1500 Hz sloping to moderately- severe sensorineural hearing loss. Word Recognition Score: Good [...] regarding benefits/limitations of hearing aids. * Call [phone] to schedule an appointment to assess your need for hearing aids. Request a HAE appointment. * Continue assessment of vestibular and balance system (Vestibular Battery). FABIAN Nolasco Doctor of Audiology (AuD) Gas Fitter Apprentice Jeanine Armstrong MA, CCC/A. Marble Machine Tender copied to: Callum Cat MD ALCANTAR Abbrev- iation Definition Degree of hearing sensitivity dB range WNL within normal limits WNL 0 - 20 SNHL sensorineural hearing loss Mild 20-40 CHL conductive hearing loss Moderate 40-55 MHL mixed hearing loss Moderately-Severe 55-70 WRS word recognition score Severe 70-90 ME middle ear Profound 90 + TM tympanic membrane documented in this encounterOhiohealth Nelsonville Health Center12-16-2024 NoteHNO ID: [id number] Author: JEANINE ARMSTRONG AUD Service: ? Author Type: Marble Machine Tender Type: Progress Notes Filed: 08/28/2024 11:22 Note Text: [facility] AUDIOLOGIC EVALUATION REPORT Name: Maria Alejandra Montenegro [facility]#: [id number] Date of Service: 08/28/2024 Date of : 1965 Age: [age] year old Referred by: Callum Cat MD Referred for: Evaluation of suspected change in hearing, tinnitus, or balance. Referral documented: In an order in Epic Patient's major complaints: Dizziness/vertigo/imbalance Maria Alejandra Montenegro was seen for an initial audiologic evaluation with concerns of dizziness.The following history was obtained by way of Maria Alejandra Montenegro's previous medical record and direct patient [...] evaluation of middle ear function. CPT code: 00992 RIGHT EAR: Normal ME function. LEFT EAR: [...] conduction and speech recognition testing. CPT code: 90267 RIGHT EAR: Hearing Sensitivity: Within normal limits [...] regarding benefits/limitations of hearing aids. * Call [phone] to schedule an appointment to assess your need for hearing aids. Request a HAE appointment. * Continue assessment of vestibular and balance system (Vestibular Battery). FABIAN Nolasco Doctor of Audiology (AuD) Gas Fitter Apprentice Jeanine Armstrong MA, CCC/A. Marble Machine Tender copied to: Callum Cat MD ALCANTAR Abbrev- iation Definition Degree of hearing sensitivity dB range WNL within normal limits WNL 0 - 20 (more content not included)...[facility]11-11-2024 NoteHNO ID: [id number] Author: CALLUM CAT MD Service: ? Author Type: Physician Type: Progress Notes Filed: 07/24/2024 14:47 Note Text: OTOLARYNGOLOGY-HEAD AND NECK SURGERY CC: Maria Alejandra Montenegro is a 59 year old male who is seen at the request of Dr. Janessa Galicia for evaluation of dizziness. My findings [...] times a day. CPAP using since 2007 Lennon-3 Fatty Acids, FISH OIL, (FISH OIL) 360-1,200 [...] SKIN: Negative for lesions, rash, and itching. HEMATOLOGIC/LYMPHATIC/IMMUNOLOGIC: Negative for prolonged bleeding, bruising easily or swollen nodes. ENDOCRINE: Negative for cold or heat intolerance, polyuria, polydipsia and goiter. PHYSICAL EXAM: On physical examination Maria Alejandra Montenegro is a well-developed, well nourished male. [...] masses or hypertrophy is noted. Callum Cat [facility]11-11-2024 History of Present illness Narrative* Callum Cat MD - 07/24/2024 8:21 AM EST OTOLARYNGOLOGY-HEAD AND NECK SURGERY CC: Maria Alejandra Montenegro is a 59 year old male who is seen at the request of Dr. Janessa Galicia for evaluation of dizziness. My findings [...] times a day. CPAP using since 2007 Lennon-3 Fatty Acids, FISH OIL, (FISH OIL) 360-1,200 [...] SKIN: Negative for lesions, rash, and itching. HEMATOLOGIC/LYMPHATIC/IMMUNOLOGIC: Negative for prolonged bleeding, bruising easily or swollen nodes. ENDOCRINE: Negative for cold or heat intolerance, polyuria, polydipsia and goiter. PHYSICAL EXAM: On physical examination Maria Alejandra Montenegro is a well-developed, well nourished male. His speech is normal and his voice is strong. Mental status revealed patient to be alert and oriented. Mood is appropriate. Details of the physical examination: HEAD AND FACE: Physical examination of the head, neck, external nose, external ears, mouth and facefails to demonstrate any significant abnormality or asymmetry to critical face to face observation.Skin and scalp are normal. EARS: RT Canal: [...] noted. Callum Cat MD documented in this encounterOhiohealth [facility]09-17-2024 NoteHNO ID: [id number] Author: JANESSA GALICIA MD Service: ? Author Type: Physician Type: Progress Notes Filed: 05/30/2024 09:34 Note Text: Heart , Vascular and Thoracic [place] DEPARTMENT OF VASCULAR SURGERY OUTPATIENT VISIT DATE May 30, 2024 OUTPATIENT VISIT TYPE CONSULTATION SERVICE DATE: 05/30/2024 SERVICE TIME: 9:20 AM PRIMARY CARE PHYSICIAN: Hilaria Barlow MD REFERRING PROVIDER: Janessa Galicia [address] [facility] [place] [address] Consult requested for an opinion regarding the evaluation and treatment of the above. My final impression and recommendations will be communicated back to the requesting physician by way of the shared medical record or letter via US mail. CHIEF COMPLAINT: Asymptomatic carotis tenosis HISTORY OF PRESENT ILLNESS: Vascular consultation at the request of Dr. Janessa Galicia. A copy of this consultation note [...] Never No family history on file. MEDICATIONS: Lennon-3 Fatty Acids, FISH OIL, (FISH OIL) 360-1,200 [...] mgmt Prn fu Referral to ENT SIGNATURE: Janessa Galicia MD PATIENT NAME: Maria Alejandra Montenegro DATE: May 30, 2024 TIME: 9:20 [facility]09-17-2024 History of Present illness Narrative* Janessa Galicia MD - 05/30/2024 9:20 AM EDT Images from the original note were not included. Heart , Vascular and Thoracic [place] DEPARTMENT OF VASCULAR SURGERY OUTPATIENT VISIT DATE May 30, 2024 OUTPATIENT VISIT TYPE CONSULTATION SERVICE DATE: 05/30/2024 SERVICE TIME: 9:20 AM PRIMARY CARE PHYSICIAN: Hilaria Barlow MD REFERRING PROVIDER: Janessa Galicia [address] [place] [id number] Consult requested for an opinion regarding the evaluation and treatment of the above. My final impression and recommendations will be communicated back to the requesting physician by way of the shared medical record or letter via US mail. CHIEF COMPLAINT: Asymptomatic carotis tenosis HISTORY OF PRESENT ILLNESS: Vascular consultation at the request of Dr. Janessa Galicia. A copy of this consultation note [...] Never No family history on file. MEDICATIONS: Lennon-3 Fatty Acids, FISH OIL, (FISH OIL) 360-1,200 [...] mgmt Prn fu Referral to ENT SIGNATURE: Janessa Galicia MD PATIENT NAME: Maria Alejandra Montenegro DATE: May 30, 2024 TIME: 9:20 AM documented in this encounterOhiohealth Nelsonville [facility] Center08-15-2024 Telephone encounter Note * Telephone Encounter - Stephen Bernardo - 04/27/2024 3:30 PM EDT Patient called back and both appointments were scheduled for 05/30. [facility]24 Miscellaneous Notes* Telephone Encounter - Stephen Bernardo - 04/27/2024 3:30 PM EDT Patient called back and both appointments were scheduled for 05/30. * Telephone Encounter - Candie Orta - 04/27/2024 10:57 AM EDT Left patient a message to call back and reschedule 05/[address] Galicia, pt needs a carotid duplex prior to appt. Called Dr. Barlow's office, they will fax referral and order for carotid duplex (scanned in). documented in this encounterOhiohealth Nelsonville [facility] Center08-15-2024 Telephone encounter Note * Telephone Encounter - Candie Orta - 04/27/2024 10:57 AM EDT Left patient a message to call back and reschedule 05/[address] Galicia, pt needs a carotid duplex prior to appt. Called Dr. Barlow's office, they will fax referral and order for carotid duplex (scanned in). [facility]08-12-2024 Telephone encounter Note* Telephone Encounter - Sana Harrington - 04/24/2024 12:40 PM EDT Patient: Maria Alejandra Montenegro Date of : 1965 Patient phone number: [phone] Referring Provider for the encounter: Hilaria Barlow Requesting Provider: n/a Reason for requesting visit (RFV/signs and symptoms/diagnosis): Carotid Occlusive Disease Person calling: caregiver: Sana Return call to: self Medical Records/Insurance Card scanned into Epic: Yes Comments: [facility]08-12-[facility]24 Miscellaneous Notes* Telephone Encounter - Sana Harrington - 04/24/2024 12:40 PM EDT Patient: Maria Alejandra Montenegro Date of : 1965 Patient phone number: [phone] Referring Provider for the encounter: Hilaria Barlow Requesting Provider: n/a Reason for requesting visit (RFV/signs and symptoms/diagnosis): Carotid Occlusive Disease Person calling: caregiver: Sana Return call to: self Medical Records/Insurance Card scanned into Epic: Yes Comments: documented in this encounterOhiohealth Nelsonville [facility] Center08-08-2024 Telephone encounter Note * Telephone Encounter - Kirit Angel - 04/20/2024 10:16 AM EDT Patient: Maria Alejandra Montenegro Date of : 1965 Patient phone number: [phone] Referring Provider for the encounter: Hilaria Barlow Requesting Provider: Vascular Surgery Reason for requesting visit (RFV/signs and symptoms/diagnosis): Carotid Occlusive Disease. Person calling: Kirit A Return call to: Patient Medical Records/Insurance Card scanned into Epic: No Comments: [facility]08-08-2024 Miscellaneous Notes* Telephone Encounter - Kirit Angel - 04/20/2024 10:16 AM EDT Patient: Maria Alejandra Montenegro Date of : 1965 Patient phone number: [phone] Referring Provider for the encounter: Hilaria Barlow Requesting Provider: Vascular Surgery Reason for requesting visit (RFV/signs and symptoms/diagnosis): Carotid Occlusive Disease. Person calling: Kirit A Return call to: Patient Medical Records/Insurance Card scanned into Epic: No Comments: documented in this encounterOhiohealth Nelsonville Health Center08-07-2024 History of Present illness Narrative* Rita Alvarez RT(R) - 2024 3:45 PM EDT Radiology Service Progress Note PATIENT NAME: Maria Alejandra Montenegro DATE OF SERVICE: 2024 TIME: 3:54 PM PATIENT IDENTITY VERIFICATION COMPLETED USING TWO (2) IDENTIFIERS: Name and Date of confirmedby patient verbally. FALL SCREENING: Has the patient had 2 falls in the last year or 1 fall with injury or currently using an Ambulatory Assistive Device (Walker, Cane, Wheelchair, Crutches, etc.)? No PATIENT GENDER DATA: Male PATIENT RELEVANT IMPLANT DATA REVIEWED: Yes PATIENT PRESENTS WITH AN IMPLANTABLE OR ATTACHED VISION THERAPIST: No RADIOLOGY DEPARTMENT: MR; Exam(s) Completed: Spine: Cervical spine PERIPHERAL IV DATA: Not applicable SIGNED BY: Rita Alvarez RDMS, RVT- Sheila ([employer]) 2024 3:54 PM documented in this encounterOhiohealth Nelsonville Health Center08-07-2024 NoteHNO ID: [id number] Author: RITA ALVAREZ RT(R) Service: ? Author Type: Technologist Type: Progress Notes Filed: 2024 15:54 Note Text: Radiology Service Progress Note PATIENT NAME: Maria Alejandra Montenegro DATE OF SERVICE: 2024 TIME: 3:54 [...] PATIENT PRESENTS WITH AN IMPLANTABLE OR ATTACHED VISION THERAPIST: No RADIOLOGY DEPARTMENT: MR; Exam(s) Completed: Spine: Cervical spine PERIPHERAL IV DATA: Not applicable SIGNED BY: Rita Alvarez RDMS, RVT- Sheila ([facility]) 2024 3:54 [facility]07-02-2024 NoteEchocardiology Procedure Exam Date/Time Accession # Ordering Dr. Toure Transthoracic 03/14/2024 08:46 EDT [id number] Hilaria Barlow MD Complete CPT code 18520 75705 Reason for Exam (Echo Transthoracic Complete) R07.9, R55, I95.9 Report Version: 1 Study ID: [id number] [facility] [address] [place] [address] Adult Echocardiogram Report Name: MARIA ALEJANDRA MONTENEGRO Study Date: 03/14/2024, 8: 05 AM Patient Location: [facility] : 1965 (MM/DD/YYYY) Gender: Male Age: 58 Years Height: 177.8 cm BP: 162 / 93 mmHg Weight: 117.936 kg BSA: 2.33 m? Ordering Physician: Hilaria Barlow Referring Physician: Hilaria Barlow Performed By: Alis Graff RDMS, Fazal Reason For Study: R07.9, R55, I95.9 History: HTN, Vertigo Interpretation Summary Ejection Fraction = 60-65%. Normal LV and RV. No significant valve disease. Normal estimated PA pressure. Normal diastolic filling pattern. Procedure A complete two-dimensional transthoracic echocardiogram was performed (2D, M- mode, spectral and color flow Doppler). Study quality [...] 4.5 cm Diastolic funtion Med Peak E' Nida: 7.5 cm/sec Lat Peak E' Nida: 10.6 cm/sec MV dec time: 0.15 sec MV E max nida: 75.6 cm/sec MV A max nida: 59.8 cm/sec Echocardiology Report Ao max P.5 [...] cm LVPWd: 1.09 cm MV A max nida: 59.8 cm/sec MV dec time: 0.15 sec MV E max nida: 75.6 cm/sec MV E/A: 1.26 RAP systole: [...] Vol Index: 24.9 ml/m? Lat Peak E' Nida: 10.6 cm/sec LVLd ap2: 7.9 cm LVLs ap2: 6.7 cm Echocardiology Report Med Peak E' Nida: 7.5 cm/sec Electronically signed by: Kadeem Montenegro MD 03/14/2024, 8: 30 PM FINAL REPORT Dictated: 03/14/2024 8:05 am Kadeem Montenegro MD Signed (Electronic Signature): 03/14/2024 8:30 pm Signed by: Kadeem Montenegro MD Transcribed by: [facility] Technologist: [facility]11-03-2022 Note 57-year-old male seen here today for complaints of a Fontaine's [...] ultrasound report and order an MRI if indicatedClermont [facility] HospitalEvaluation + Plan note No data available for this section [facility] Diagnosis Vertigo- Primary Dizziness and giddiness documented in this encounter [facility]* Diagnosis Allergy, initial encounter- Primary documented in this encounter [facility]* Diagnosis Bilateral carotid artery stenosis- Primary Occlusion and stenosis of carotid artery without mention of cerebral infarction documented in this encounter [facility]* Diagnosis Vertigo Dizziness and giddiness [facility] Diagnosis Dizziness- Primary Dizziness and giddiness Ear pressure, bilateral documented in this encounter [facility]Eval[facility]* Diagnosis Sensorineural hearing loss, bilateral- Primary Dizziness Dizziness and giddiness [facility] No data available for this section [facility] No data available for this section [facility] HospitalReason for referral (narrative)* Outpatient Procedure (Routine) - AuthorizedSpecialtyDiagnoses / ProceduresReferred By ContactReferred To [facility] [place] Diagnoses Vertigo Procedures US CAROTID ARTERIES SHARMILA VAS LAB DUPLEX SCAN [place]TRA[place] [address] [place] [address] [facility] [place] [address] Referral IDStatus[facility]Wood[facility] DateExpiration DateVisits RequestedVisits [id number] Auto-Generated Referral [facility] for referral (narrative)* Outpatient Procedure (Routine) - ClosedSpecialtyDiagnoses / ProceduresReferred By ContactReferred To Contact [facility] [place] Diagnoses Vertigo Procedures US CAROTID ARTERIES SHARMILA VAS LAB DUPLEX SCAN [place] [address] [place] [id number] [facility] [place] [phone] Referral IDStatusElbaWoodland Medical Center DateExpiration DateVisits RequestedVisits [id number] Auto-Generated Referral [facility] for visit Narrative* Outpatient Procedure (Routine) - ClosedSpecialtyDiagnoses / ProceduresReferred By ContactReferred To Contact [facility] [place] Diagnoses Vertigo Procedures US CAROTID ARTERIES SHARMILA VAS LAB DUPLEX SCAN EXTRACRANIAL ART COM[place] [address] [place] [address] [facility] [place] [address] [place] [address] Referral IDStatusReasonStart DateExpiration DateVisits RequestedVisits [id number] Auto-Generated Referral / [facility] Summary Purpose Family History No Family History [...] Advanced Directives Records Found Reason for Referral SpecialtyDiagnoses / ProceduresReferred By ContactReferred To Contact Procedures HEARING TEST/AUDIOGRAM COMPRE AUDIOMETRY THRESHOLD EVAL SP RECOGNIJ Callum Cat MD [address] [place] [address] [facility] [address] [place] [address] Referral IDStatusReasonStart DateExpiration DateVisits RequestedVisits [id number] Request Auto-Generated Referral [id number] / ProceduresReferred By ContactReferred To Contact Diagnoses Dizziness Procedures HEARING TEST/AUDIOGRAM COMPRE AUDIOMETRY THRESHOLD EVAL SP RECOGNCallum Arcos MD [address] [place] [address] [facility] [address] [place] [address] Referral IDStatusReasonStart DateExpiration DateVisits RequestedVisits [id number] Request Auto-Generated Referral /[id number] / ProceduresReferred By ContactReferred To ContactEnt - Otolaryngology Diagnoses Allergy, initial encounter Procedures CONSULT TO ENT OFFICE/OUTPATIENT [facility] 60 [place] [address] [place] [address] Callum Cat MD [address] [place] [address] Referral IDStatusReasonStart DateExpiration DateVisits RequestedVisits [id number] PCP Requested Referral Additional Source Comments (unrecognized sect ion and content) No Status Records FoundNo Status Records FoundNo Status Records FoundNo Status Records FoundNo Status Records FoundNo Status Records FoundNo Status Records FoundNo Status Records FoundNo Status Records Found INFORMATION SOURCE (unrecogn ized section and content) DATE CREATED AUTHOR 08/10/2022 [facility] DATE CREATED AUTHOR AUTHOR'S ORGANIZ ATION 05/10/2023 [facility] DATE CREATED AUTHOR AUTHOR'S ORGANIZ ATION 01/14/2024 [facility] DATE CREATED AUTHOR AUTHOR'S ORGANIZ ATION 02/13/2024 [facility] DATE CREATED AUTHOR AUTHOR'S ORGANIZ ATION 03/01/2024 [facility] DATE CREATED AUTHOR AUTHOR'S ORGANIZ ATION 03/15/2024 [facility] DATE CREATED AUTHOR AUTHOR'S ORGANIZ ATION 04/25/2024 [facility] DATE CREATED AUTHOR AUTHOR'S ORGANIZ ATION 05/31/2024 [facility] DATE CREATED AUTHOR AUTHOR'S ORGANIZ ATION 08/29/[address] [facility] Patient Care team informatio n (unrecognized section and content) Team MemberRelationshipSpecialtyStart DateEnd Date Hilaria Barlow MD [facility] - [facility]18 Hilaria Barlow MD ReferringBoston City Hospital Medicine11/08/18Team MemberRelationshipSpecialtyStart DateEnd Date Hilaria Barlow MD PCP - [facility]11/08/18 Hilaria Barlow MD [facility]erring[facility]11/08/18Team MemberRelationshipSpecialtyStart DateEnd Date Hilaria Barlow MD PCP - [facility]11/08/18 Hilaria Barlow MD [facility]11/08/18Team MemberRelationshipSpecialtyStart DateEnd Date Hilaria Barlow MD PCP - [facility] Medicine11/08/18 Hilaria Barlow MD [facility]11/08/18Team MemberRelationshipSpecialtyStart DateEnd Date Hilaria Barlow MD PCP - [facility]11/08/18 Hilaria Barlow MD [facility]erring[facility]11/08/18Team MemberRelationshipSpecialtyStart DateEnd Date Hilaria Barlow MD PCP - [facility]11/08/18 Hilaria Barlow MD Referringmi Medicine11/08/18Team MemberRelationshipSpecialtyStart DateEnd Date Hilaria Barlow MD [facility]/18 Hilaria Barlow MD Referringmi Medicine11/08/18Team MemberRelationshipSpecialtyStart DateEnd Date Hilaria Barlow MD [facility] - [facility]11/08/18 Hilaria Barlow MD ReferringOpt[facility]11/08/18 Source Comments (unrecognize d section and content) In the event this informatio n is protected by the Federal Confidentiality of Alcohol and Drug Abuse Patient Records regulations: The Federal rules restrict any use of the information to criminally investigate or prosecute any alcohol or drug abuse patient.[facility] Health CenterIn the event this information is protected by the Federal Confidentiality of Alcohol and Drug Abuse Patient Records regulations: The Federal rules restrict any use of the information to criminally investigate or prosecute any alcohol or drug abuse patient.[facility] CenterIn the event this information is protected by the Federal Confidentiality of Alcohol and Drug Abuse Patient Records regulations: The Federal rules restrict any use of the information to criminally investigate or prosecute any alcohol or drug abuse patient.[facility] Health CenterIn the event this information is protected by the Federal Confidentiality of Alcohol and Drug Abuse Patient Records regulations: The Federal rules restrict any use of the information to criminally investigate or prosecute any alcohol or drug abuse patient.[facility] CenterIn the event this information is protected by the Federal Confidentiality of Alcohol and Drug Abuse Patient Records regulations: The Federal rules restrict any use of the information to criminally investigate or prosecute any alcohol or drug abuse patient.[facility] CenterIn the event this information is protected by the Federal Confidentiality of Alcohol and Drug Abuse Patient Records regulations: The Federal rules restrict any use of the information to criminally investigate or prosecute any alcohol or drug abuse patient.[facility] CenterIn the event this information is protected by the Federal Confidentiality of Alcohol and Drug Abuse Patient Records regulations: The Federal rules restrict any use of the information to criminally investigate or prosecute any alcohol or drug abuse patient.[facility] CenterIn the event this information is protected by the Federal Confidentiality of Alcohol and Drug Abuse Patient Records regulations: The Federal rules restrict any use of the information to criminally investigate or prosecute any alcohol or drug abuse patient.[facility] CenterIn the event this information is protected by the Federal Confidentiality of Alcohol and Drug Abuse Patient Records regulations: The Federal rules restrict any use of the information to criminally investigate or prosecute any alcohol or drug abuse patient.[facility] CenterIn the event this information is protected by the Federal Confidentiality of Alcohol and Drug Abuse Patient Records regulations: The Federal rules restrict any use of the information to criminally investigate or prosecute any alcohol or drug abuse patient.[facility] CenterIn the event this information is protected by the Federal Confidentiality of Alcohol and Drug Abuse Patient Records regulations: The Federal rules restrict any use of the information to criminally investigate or prosecute any alcohol or drug abuse patient.[facility] Reason for Visit (unrecogniz ed section and content) SpecialtyDiagnoses / ProceduresReferred By ContactReferred To ContactRADIO [facility] Diagnoses Paresthesia of skin mri cspine wo con r20.2 paresthesia of upper limb hilaria arellano md order in scanned docs Procedures MRI SPINAL CANAL CERVICAL W/O CONTRAST MATRL MRI WO DAMIAN B 300 ALL Hilaria Barlow MD [address] [place] [address] [facility] [address] [place] [address] Referral IDStatusReasonStart DateExpiration DateVisits RequestedVisits [id number]/7/202411/[id number] Referrals/resourcesReasonCommentsAppointmentReasonCommentsNew PatientSpecialty Diagnoses / ProceduresReferred By ContactReferred To ContactVascular Surgery / VASCULAR SURGERY Diagnoses Carotid artery occlusion Carotid artery occlusion - I65.29 (Primary) Procedures OFFICE/OUTPATIENT ESTABLISHED MOD MDM 30 MIN NEW/[place] [address] [place] [address] [place] [address] [place] [address] Referral IDStatusReasonStart DateExpiration DateVisits RequestedVisits [id number]/17/[id number] PatientC/o ear blockage, sinus concern? Vascular, Dr. Lo. Referred to ENT. Onset: approx December 2023 after bout of vertigo. present.SpecialtyDiagnoses / Procedures Referred By ContactReferred To ContactEnt - Otolaryngology Diagnoses Allergy, initial encounter Procedures CONSULT TO ENT OFFICE/OUTPATIENT [facility] [address] [place] [address] [place] [address] Callum Cat MD [address] [place] [address] Referral IDStatusReasonStfrederick DateExpiration DateVisits RequestedVisits [id number] PCP Requested Referral /[id number]tqysabhdEuyromykr / Procedures Referred By ContactReferred To ContactAudiology / AUDIOLOGY Diagnoses dizziness Procedures ADULT AUDIOGRAM Callum Cat MD [address] [place] [address] Jeanine Armstrong, [address] [place] [address] Referral IDStatus[facility] DateExpiration DateVisits RequestedVisits [id number]/1/202412/999 FOR RECORDS PERTAINING TO PATIENTS WHO ARE [...] BE BASED ON THE PRIMARY CLINICAL RECORDS. [facility]. provides no warranty or guarantee of the accuracy or completeness of information in this document.
[2025-09-11 10:18] LABS: Hematocrit 48.4 % (42.0-54.0); Hemoglobin 16.6 g/dL (14.0-18.0); Immature Granulocytes Abs Auto 0.01 10^3/uL (0.00-0.03); Immature Granulocytes Pct Auto 0.2 % (0.0-0.5); Lymphocytes Absolute Auto 1.3 10^3/uL (1.2-3.8); Mean Corpuscular HGB Conc 34.3 g/dL (29.9-35.2); Mean Corpuscular Hemoglobin 31.3 pg (25.9-34.0); Mean Corpuscular Volume 91.3 fL (80.0-94.0); Platelet Count 234 10^3/uL (150-450); Red Blood Count 5.30 10^6/uL (4.70-6.10); White Blood Count 4.9 10^3/uL (4.0-11.0)
[2025-09-11 10:48] LABS: Alanine Aminotransferase 31 U/L (16-63); Albumin Globulin Ratio 1.0; Albumin Level 3.9 g/dL (3.4-5.0); Alkaline Phosphatase 63 U/L (46-116); Anion Gap 10.2; Aspartate Amino Transferase 18 U/L (15-37); Blood Urea Nitrogen 18.0 mg/dL (7.0-18.0); Calcium 9.3 mg/dL (8.5-10.1); Carbon Dioxide 28.1 mmol/L (21.0-32.0); Chloride 105 mmol/L (98-107); Cholesterol 228 mg/dL (<=200); Estimated GFR (African America >60 (>=60 mL/min/1.73m^2); Estimated GFR (Non-African Ame >60 (>=60 mL/min/1.73m^2); Free T3 2.36 pg/mL (2.18-3.98); Globulin 3.8 g/dL; Glucose 102 mg/dL (74-106); HDL Cholesterol 39 mg/dL (40-60); Potassium 4.3 mmol/L (3.5-5.1); Sodium 139 mmol/L (136-145); Thyroid Stimulating Hormone 1.588 uIU/mL (0.358-3.740); Total Protein 7.7 g/dL (6.4-8.2); Triglycerides 127 mg/dL (<=150); Uric Acid 4.5 mg/dL (3.5-7.2); VLDL CHOLESTEROL 25.4 mg/dL
== END 2025-09-11 09:39 | disposition home or self-care (01) ==
LOC: LAB 09:39
PROVIDERS: PCP Family Medicine; Visit Provider Family Medicine
DX: Z00.00 Encounter for general adult medical examination without abnormal findings (principal); Z12.5 Encounter for screening for malignant neoplasm of prostate
CPT/HCPCS: 36415; 80053; 80061; 83036; 83525; 84436; 84443; 84481; 84550; 85025; G0103